=== PATIENT | female | born 1985 | race Caucasian/White ===

== ENCOUNTER 2017-08-02 17:12 | Emergency (ER) | payer OTHER, MEDICAID, SELFPAY ==
[2017-08-02 17:19] VITALS: BP 127/81; PULSE 76; RESP 20; TEMP 36.8; O2SAT 98; BMI 20.5
--- NOTE | 2017-08-02 17:27 | HMH.EDUTC ---
[facility] [place] Disposition Clinical Impression: Migraine Qualifiers: Migraine type: unspecified Status migrainosus presence: without status migrainosus Intractability: intractable Qualified Code(s): G43.919 - Migraine, unspecified, intractable, without status migrainosus Vomiting Qualifiers: Vomiting type: unspecified Vomiting Intractability: unspecified Disposition: Home, Self-Care Condition on Discharge: Good Instructions: Migraine -- Adult, DI for Chronic Pain -- Adult, DI for Vomiting -- Adult Additional Instructions: Take medication for nausea as directed Follow up with family doctor Return if no improvement or Follow up with family doctor in 24-48 hours if no improvement or worsening of symptoms Straight to ER if any life threatening symptoms Rest and drink plenty of fluids, no fried or greasy foods, [place] diet such as dry toast, crackers etc food that is easy on stomach Prescriptions: Ondansetron [Zofran 4mg ODT] 4 mg PO Q8H PRN #20 tab.rapdis PRN Reason: Nausea Time of Disposition: 18:10 Medical Decision Making - Medical Records Medical records reviewed: Yes: I reviewed the patient's medical records. - Sagar Inquiry Pt receiving controlled substance: No Sagar was queried for this patient: No Vital Signs: 08/02/17 17:19 Temperature 98.2 F Temperature Source Oral Pulse Rate [Right Brachial] 76 Respiratory Rate 20 Blood Pressure [Right Arm] 127/81 Blood Pressure Mean [Right Arm] 96 Blood Pressure Source [Right Arm] Automatic Cuff Blood Pressure Position [Right Arm] Sitting 02 Sat by Pulse Oximetry 98 Oxygen Delivery Method Room Air Orders (Tests/Meds): ED MEDICATIONS Discontinued Medications Generic Name Dose Route Start Last Admin Trade Name Freq PRN Reason Stop Dose Admin Ketorolac Tromethamine 60 mg 08/02/17 17:44 08/02/17 17:46 Toradol 60mg/2ml Vial IM 08/02/17 17:45 60 mg ONCE ONE Administration Promethazine HCl 25 mg 08/02/17 17:45 08/02/17 17:46 Phenergan 25mg/Ml 1ml Vial IM 08/02/17 17:46 25 mg ONCE ONE Administration - Reevaluation(s) Time: 17:58 Reevaluation #1: After medication patient no longer vomiting, appears to be feeling better laying on exam table drinking sprite. Will monitor to assure that patient is able to keep down sprite prior to discharge Time: 18:10 Reevaluation #3: Patient state that she feels much better after medication no vomiting since medication given [facility] [place] HPI - General Stated complaint: vomiting,BOUCHER Time Seen by Provider: 08/02/17 17:25 Mode of Arrival: Family Vehicle Source of Information: Patient, Spouse Limitations: No Limitations Description of Symptoms (Recalled from Triage Doc. by RN): C/O HEADACHE AND VOMITING HEENT Symptoms (Recalled from RN notes): Yes (HEADACHE) Resp Symptoms (Recalled from RN notes): No Skin Symptoms (Recalled from RN notes): No MS Symptoms (Recalled from RN notes): No Functional Status (Recalled from RN notes): N/A - History of Present Illness Provider Complaint: Patient states that she woke up this morning with a headache and nausea and then began vomiting State that she has a history of migraines and sometimes has nausea with them State that she has not taken anything and both the headache and vomiting has continued to get worse throughout the day. State that she has not been able to keep anything down today - Related Data Home Medications Medication Instructions Recorded Confirmed Cetirizine HCl [Cetirizine HCl] 10 mg PO DAILY 08/02/17 08/02/17 Fluticasone/Vilanterol [Breo 1 puff PO DAILY 08/02/17 08/02/17 Ellipta 200-25 Mcg INH] Montelukast Sodium [Singulair 10mg 10 mg PO PM 08/02/17 08/02/17 tablet] Previous Rx's Medication Instructions Recorded Ondansetron [Zofran 4mg ODT] 4 mg PO Q8H PRN #20 tab.rapdis 08/02/17 Allergies Allergy/AdvReac Type Severity Reaction Status Date / Time propoxyphene Allergy Unknown Verified 08/02/17 17:24 [From LUNA
[2017-08-02 18:23] VITALS: BP 124/78; PULSE 70; RESP 20; TEMP 36.6; O2SAT 98
== END 2017-08-02 18:24 | disposition home or self-care (01) ==
PROVIDERS: Emergency Provider Nurse Practitioner; Family Provider Emergency Medicine
DX: G43.919 Migraine, unspecified, intractable, without status migrainosus (principal)
CPT/HCPCS: 96372; 99201

== ENCOUNTER → 2020-02-07 19:28 | Outpatient (CLI) | payer OTHER, SELFPAY ==
[2020-02-07 20:17] LABS: Alanine Aminotransferase 98 U/L (12-78); Albumin Level 4.4 g/dl (3.5-5.0); Albumin/Globulin Ratio 1.1 (1.1-1.8); Alkaline Phosphatase 66 U/L (38-126); Aspartate Amino Transferase 59 U/L (14-36); Bilirubin,Total 0.6 mg/dl (0.2-1.3); Blood Urea Nitrogen 9 mg/dl (7-17); Calcium 9.5 mg/dl (8.4-10.2); Carbon Dioxide 28 mmol/L (22.0-30.0); Chloride 105 mmol/L (98-107); Chol/HDL Ratio 2.9 (1-3.5); Cholesterol 123 mg/dl (140-200); Estimated Glomerular Filt Rate 114 ml/min (>60); GFR (African American) 138 ML/MIN (>60); Globulin 4.1 g/dL (1.3-3.2); Glucose 93 mg/dl (74-100); HDL Cholesterol 42 mg/dl (40-60); Sodium 142 mmol/L (136-145); Total Protein,Serum 8.5 g/dl (6.3-8.2); Triglycerides 82 mg/dl (30-150); VLDL Cholesterol 16 mg/dL (0-40)
[2020-02-07 20:22] LABS: Basophils % 0.6 % (0.1-2.0); Eosinophils # 0.3 K/mm3 (0.0-0.4); Eosinophils % 6.8 % (0.1-12.0); Hematocrit 40.1 % (37.0-47.0); Hemoglobin 13.1 g/dL (12.2-16.2); Lymphocytes # 1.4 K/mm3 (0.7-4.5); Lymphocytes % 27.5 % (10-50); Mean Corpuscular HGB Conc 32.6 g/dL (31.8-35.4); Mean Corpuscular Hemoglobin 30.4 pg (27.0-31.2); Mean Corpuscular Volume 93.4 fl (81-99); Mean Platelet Volume 9.3 fl (7.4-10.4); Monocytes # 0.3 K/mm3 (0.1-1.0); Monocytes % 6.8 % (1.7-9.3); Neutrophils # 2.9 K/mm3 (1.8-7.8); Neutrophils % 58.2 % (37.0-80.0); Platelet Count 202 K/mm3 (142-424); Red Blood Count 4.29 M/mm3 (4.20-5.40); Red Cell Distribution Width 13.3 % (11.5-17.5); White Blood Count 4.9 K/mm3 (4.8-10.8)
[2020-02-07 20:27] LABS: Direct LDL Cholesterol 67.38 mg/dL (100-129)
[2020-02-07 20:33] LABS: 25-OH Vitamin D, Total 65.5 ng/mL (30-100)
[2020-02-07 20:34] LABS: T4 (Thyroxine) 7.9 ug/dl (5.53-11.0)
[2020-02-09 15:09] LABS: Hep A Ab, IgM Negative (Negative); Hepatitis B Core Antibody IgM Negative (Negative); Hepatitis B Surface Antigen Negative (Negative)
[2020-02-10 09:34] LABS: Hepatitis C Antibody >11.0 s/co ratio (0.0-0.9)
[2020-02-14 16:52] LABS: Hepatitis C Genotype 2b (.)
== END ==
LOC: LAB.DROPOF 19:28
PROVIDERS: Visit Provider Physician Assistant
DX: K52.9 Noninfective gastroenteritis and colitis, unspecified (principal); R11.10 Vomiting, unspecified; R53.83 Other fatigue; R74.8 Abnormal levels of other serum enzymes; R76.8 Other specified abnormal immunological findings in serum
CPT/HCPCS: 80053; 80061; 80074; 82306; 84436; 84443; 85025; 87522

== ENCOUNTER 2020-03-17 15:28 | Emergency (ER) | payer OTHER, SELFPAY ==
[2020-03-17 15:40] VITALS: BP 123/75; PULSE 71; RESP 19; TEMP 36.8; O2SAT 98; BMI 23.8
--- NOTE | 2020-03-17 15:57 | HMH.EDUTC ---
[facility] [place] Disposition Clinical Impression: Migraine Qualifiers: Migraine type: unspecified Status migrainosus presence: without status migrainosus Intractability: not intractable Qualified Code(s): G43.909 - Migraine, unspecified, not intractable, without status migrainosus Disposition: Home, Self-Care Condition on Discharge: Good Instructions: Migraine -- Adult, DI for Migraine Additional Instructions: Follow up with your primary care provider. GO TO THE ER FOR ANY WORSENING SYMPTOMS OR CONCERNS Referrals: Briseida Pgeuero PA [Primary Care Provider] - Forms: Work/School Release Time of Disposition: 16:51 Medical Decision Making - Medical Records Medical records reviewed: No: I reviewed the patient's medical records. - Sagar Inquiry Pt receiving controlled substance: No Vital Signs: 03/17/20 15:40 03/17/20 16:50 Temperature 98.2 F 98.2 F Temperature Source Oral Pulse Rate 71 Pulse Rate [Right Brachial] 71 Respiratory Rate 19 19 Blood Pressure 123/75 Blood Pressure [Right Arm] 123/75 Blood Pressure Mean [Right Arm] 91 Blood Pressure Source [Right Arm] Automatic Cuff Blood Pressure Position [Right Arm] Sitting 02 Sat by Pulse Oximetry 98 Oxygen Delivery Method Room Air Orders (Tests/Meds): ED MEDICATIONS Discontinued Medications Generic Name Dose Route Start Last Admin Trade Name Simonq PRN Reason Stop Dose Admin Ketorolac Tromethamine 60 mg 03/17/20 15:59 03/17/20 16:10 Ketorolac 60mg/2ml Vial IM 03/17/20 16:00 60 mg ONCE ONE Administration Methylprednisolone Sodium Succinate 125 mg 03/17/20 15:59 03/17/20 16:10 Methylprednisolone Sod Succ 125mg Vial IM 03/17/20 16:00 125 mg ONCE ONE Administration Metoclopramide HCl 10 mg 03/17/20 16:00 03/17/20 16:10 Metoclopramide Hcl 10mg/2ml Vial IM 03/17/20 16:01 10 mg ONCE ONE Administration [facility] [place] HPI - General Stated complaint: BOUCHER Time Seen by Provider: 03/17/20 15:58 Mode of Arrival: Ambulatory Source of Information: Patient Limitations: No Limitations Description of Symptoms (Recalled from Triage Doc. by RN): PATIENT C/O MIGRAINE SINCE 1000 THIS MORNING HEENT Symptoms (Recalled from RN notes): Yes Resp Symptoms (Recalled from RN notes): No Skin Symptoms (Recalled from RN notes): No MS Symptoms (Recalled from RN notes): No Functional Status (Recalled from RN notes): WNL - History of Present Illness Provider Complaint: She c/o migraine head ache since earlier this morning. She has a history of migraine. Usually she can take relpax and feel better, but today that hasn't worked. - Related Data Home Medications Medication Instructions Recorded Confirmed Methadone HCl 10 mg PO DAILY 06/05/19 03/17/20 Allergies Allergy/AdvReac Type Severity Reaction Status Date / Time propoxyphene Allergy Unknown Verified 02/07/20 14:58 [From DARVOCET-N 100] - Worker's Comp Is this a Worker's Comp case?: No [facility] History - Hepatitis A Screen Drug use history?: No High risk sexual behaviors?: No History of sexually transmitted infection?: No Currently employed?: No Childcare worker?: No Do you have indoor plumbing?: Yes Do you have electricity?: Yes Attestation statement:: This patient has been screened for Hepatitis A risk factors. I have reviewed the patient's past medical history: Yes 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: Reports:: Asthma Denies:: Cancer, Diabetes Mellitus Type 1, Diabetes Mellitus Type 2, MRSA Other 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: Reports: Other Other Surgeries: Yes: Cholecystectomy, Tubal Ligation Amputation: No Fractures: Yes Comment: Right wrist, wisdom teeth - Social History Smoking Status: Never smoker Tobacco Type: cigarettes Alcohol Intake: never Substance Use Type: heroin Occupational Status: other Family Hx:: Hypertension ROS Obtained: Yes All systems reviewed & no additional complaints - Constitutional Constitutional: Denies chills, Denies fever(s), Denies poor appeti
[2020-03-17 16:50] VITALS: BP 123/75; PULSE 71; RESP 19; TEMP 36.8; O2SAT 98
== END 2020-03-17 16:55 | disposition home or self-care (01) ==
PROVIDERS: Emergency Provider Nurse Practitioner Family; PCP Physician Assistant
DX: G43.909 Migraine, unspecified, not intractable, without status migrainosus (principal); J45.909 Unspecified asthma, uncomplicated; Z88.6 Allergy status to analgesic agent
CPT/HCPCS: 96372; 99201

== ENCOUNTER → 2020-03-20 13:31 | Outpatient (CLI) | payer OTHER, SELFPAY | PROVIDERS: PCP Physician Assistant; Visit Provider Physician Assistant | DX: Z03.818 Encounter for observation for suspected exposure to other biological agents ruled out (principal) | CPT/HCPCS: U0003 ==

== ENCOUNTER 2021-05-22 16:43 | Emergency (ER) | payer OTHER, SELFPAY ==
[2021-05-22 18:14] VITALS: BP 124/86; PULSE 81; RESP 18; TEMP 36.8; O2SAT 99; BMI 23.1
--- NOTE | 2021-05-22 18:19 | HMH.EDUTC ---
[facility] [place] Disposition Clinical Impression: Otitis media Qualifiers: Otitis media type: unspecified Laterality: left Qualified Code(s): H66.92 - Otitis media, unspecified, left ear Disposition: Home, Self-Care Condition on Discharge: Good Instructions: Sore Throat, DI for Fever (Symptom) -- Adult Additional Instructions: *Monitor Temp, Over the counter Motrin or Tylenol as directed/as needed Tylenol every 4 hours and Motrin every 6 hours (as long as your family doctor has told you that you can take it) for fever or pain. and straight to ER if unable to lower temp less than 101.0 after medication given *Warm salt water gargles may help to soothe the throat *Throat Lozenges *Warm fluids like tea with honey may help to soothe the throat *Sleep elevated *Humidifier/Vaporizer Take medication as prescribed Your throat swab was sent for culture. Those results are typically sent to your primary care. Be sure to follow up in 2-3 days with your family doctor/primary care physician if no improvement so they can review those result and treat if necessary. If you don?t have a primary care doctor, I recommend you get one but in the mean time, you will have to return to a walk in clinic Follow up IMMEDIATELY for new or worsening symptoms or no Noticeable improvement over the next 48-72 hours. 911 for difficulty breathing or swallowing Prescriptions: Amoxicillin [Amoxicillin 875MG Tab] 875 mg PO Q12H #20 tab Transmission Status: Pending to [id number] Fluticasone Propionate [Flonase 50mcg nasal spray 16gm] 1 spr NS DAILY #1 each Transmission Status: Pending to [id number] Referrals: Briseida Peguero PA [Primary Care Provider] - As needed Time of Disposition: 18:26 Medical Decision Making - Sagar Inquiry Pt receiving controlled substance: No Sagar was queried for this patient: No Vital Signs: 05/22/21 18:14 Temperature 98.2 F Temperature Source Oral Pulse Rate [Right Radial] 81 Respiratory Rate 18 Blood Pressure [Right Arm] 124/86 Blood Pressure Mean [Right Arm] 98 Blood Pressure Source [Right Arm] Automatic Cuff Blood Pressure Position [Right Arm] Sitting 02 Sat by Pulse Oximetry 99 Oxygen Delivery Method Room Air - Lab Data Lab results reviewed: Yes: I reviewed the patient's lab results. [facility] [place] HPI - General Stated complaint: poss strep, sore throat, bodyaches, headache Time Seen by Provider: 05/22/21 18:19 Mode of Arrival: Ambulatory Source of Information: Patient Limitations: No Limitations Description of Symptoms (Recalled from Triage Doc. by RN): C/O sore throat, bodyaches, stomach ache since yesterday. Exposed to strep throat HEENT Symptoms (Recalled from RN notes): Yes (sore throat) Resp Symptoms (Recalled from RN notes): No Skin Symptoms (Recalled from RN notes): No MS Symptoms (Recalled from RN notes): Yes (bodyaches) Functional Status (Recalled from RN notes): n/a - History of Present Illness Provider Complaint: Patient state that her daughter has strep throat State that she has been having sore throat and pain in her left ear along with body aches, headache and upset stomach like she gets when she has it State that this evening she was feeling worse so she came in - Related Data Home Medications Medication Instructions Recorded Confirmed Methadone HCl 10 mg PO DAILY 06/05/19 05/23/20 Previous Rx's Medication Instructions Recorded promethazine 12.5 mg tablet 12.5 mg PO TID PRN #10 tab 05/23/20 Amoxicillin [Amoxicillin 875MG 875 mg PO Q12H #20 tab 05/22/21 Tab] Fluticasone Propionate [Flonase 1 spr NS DAILY #1 each 05/22/21 50mcg nasal spray 16gm] Allergies Allergy/AdvReac Type Severity Reaction Status Date / Time propoxyphene Allergy Unknown Verified 05/23/20 08:16 [From JONNIE-N 100] - Worker's Comp Is this a Worker's Comp case?: No [facility] History - Hepatitis A Screen Drug use history?: No High risk sexual behaviors?: No History
[2021-05-22 18:21] LABS: UTC Strep Screen (Rapid) Negative (Negative)
[2021-05-22 18:40] VITALS: BP 124/86; PULSE 81; RESP 18; TEMP 36.8; O2SAT 99
== END 2021-05-22 18:40 | disposition home or self-care (01) ==
PROVIDERS: Emergency Provider Nurse Practitioner; PCP Physician Assistant
DX: H66.92 Otitis media, unspecified, left ear (principal)
CPT/HCPCS: 87880; 99202; G0463

== ENCOUNTER 2021-08-16 12:06 | Emergency (ER) | payer OTHER, SELFPAY ==
[2021-08-16 12:10] VITALS: BP 124/81; PULSE 127; RESP 17; TEMP 37.2; O2SAT 99; BMI 26.3
[2021-08-16 12:18] LABS: UTC Influenza A Antigen Positive (Negative)
[2021-08-16 12:19] LABS: UTC Influenza B Antigen Negative (Negative)
--- NOTE | 2021-08-16 12:30 | HMH.EDUTC ---
[facility] [place] [facility] [place] Clinical Impression: Influenza Disposition: Home, Self-Care Condition on Discharge: Good Instructions: How to Avoid a Cold or Flu, Influenza Additional Instructions: ? Start Tamiflu today if you are going to take it. Discussed risk and possible benefits. ? Lots of rest ? Increase Fluids water, Gatorade, powerade, pedialyte,if infant/toddler/child ? Alternate Tylenol and / or ibuprofen as discussed for fever, aches, chills Follow up IMMEDIATELY with your family doctor for new or worsening Symptoms OR no noticeable improvement over the next 48-72 hours, 911 for difficulty or breathing ? You or your child area contagious until no fever, aches, chills for 24 hours with medication for symptoms ? Help Prevent the spread of influenza: ? Wash your hands often. Use soap and water. Wash your hands after you use the bathroom, change a child's diapers, or sneeze. Wash your hands before you prepare or eat food. Use gel hand cleanser that has 60% alcohol, when soap and water are not available. Do not touch your eyes, nose, or mouth unless you have washed your hands first. ? Cover your mouth when you sneeze or cough. Cough into a tissue or the bend of your arm. If you use a tissue, throw it away immediately and wash your hands. ? Clean shared items with a germ-killing quill cleaner. Clean table surfaces, doorknobs, and light switches. Do not share towels, silverware, and dishes with people who are sick. Wash bed sheets, towels, silverware, and dishes with soap and water. ? Wear a mask over your mouth and nose if you are sick. The face mask may help protect others from becoming infected with the flu. Wear the mask when in common areas of your home or if you seek care with a healthcare provider. ? Stay away from others if you are sick. Stay at home until 24 hours after your fever and symptoms are gone. Prescriptions: Brompheniramine/Pseudoephed/Dm [Bromfed Dm Cough Syrup] 5 - 10 ml PO Q4-6H PRN #200 ml PRN Reason: Cough Transmission Status: Pending to [facility] Oseltamivir Phosphate [Tamiflu 75mg Capsule] 75 mg PO BID #10 cap Transmission Status: Pending to [facility] Referrals: Briseida Peguero PA [Primary Care Provider] - As needed Forms: Work/School Release Time of Disposition: 12:36 Medical Decision Making - Sagar Inquiry Pt receiving controlled substance: No Sagar was queried for this patient: No Vital Signs: 08/16/21 12:10 Temperature 98.9 F Temperature Source Oral Pulse Rate [Right Brachial] 127 H Respiratory Rate 17 Blood Pressure [Right Arm] 124/81 Blood Pressure Mean [Right Arm] 95 Blood Pressure Source [Right Arm] Automatic Cuff Blood Pressure Position [Right Arm] Sitting 02 Sat by Pulse Oximetry 99 Oxygen Delivery Method Room Air - Lab Data Lab results reviewed: Yes: I reviewed the patient's lab results. Lab Results 08/16/21 12:10: Influenza Type A Ag Positive A, Influenza Type B Ag Negative [facility] [place]PI - General Stated complaint: cough, fever, bodyaches, BOUCHER Time Seen by Provider: 08/16/21 12:30 Mode of Arrival: Ambulatory Source of Information: Patient Limitations: No Limitations Description of Symptoms (Recalled from Triage Doc. by RN): PATIENT C/O FEVER, COUGH, BODY ACHES, AND HEADACHE SINCE LAST NIGHT. RECENTLY EXPOSED TO FLU HEENT Symptoms (Recalled from RN notes): Yes Resp Symptoms (Recalled from RN notes): Yes Skin Symptoms (Recalled from RN notes): No MS Symptoms (Recalled from RN notes): No Functional Status (Recalled from RN notes): WNL - History of Present Illness Provider Complaint: Patient states that her daughters currently have the flu States that last night she started having bodyaches, chills, cough and fever and she is pretty sure she may have flu now too so she came in to get checked out - Related Data Previous Rx's Medication Instructions Recorded Brompheniramine/Pseudoephed/Dm 5 - 10 ml PO Q4-6H PRN #200 ml 08/16/21 [Bromfe
[2021-08-16 12:36] VITALS: BP 124/81; PULSE 127; RESP 17; TEMP 37.2; O2SAT 99
== END 2021-08-16 12:41 | disposition home or self-care (01) ==
PROVIDERS: Emergency Provider Nurse Practitioner; PCP Physician Assistant
DX: J10.1 Influenza due to other identified influenza virus with other respiratory manifestations (principal)
CPT/HCPCS: 87804; 99212; G0463

== ENCOUNTER → 2022-01-22 13:50 | Outpatient (CLI) | payer BC, OTHER, SELFPAY ==
--- NOTE | 2022-01-22 13:50 | US_ITS ---
FINAL REPORT CLINICAL HISTORY: pelvic pain and heavy bleeding FINDINGS: Transvaginal sonographic images of the pelvis were obtained. The uterus measures 9.2 x 4.0 x 4.9 cm. The endometrium measures 10 mm, which is within normal limits. No uterine mass is identified. The right ovary measures 3.1 x 2.7 x 2.0 cm and left ovary measures 2.9 by 2.8 x 1.7 cm. Normal blood flow seen to the ovaries. There are multiple follicles in both ovaries consistent with polycystic ovarian syndrome. There is a small amount of free fluid in the pelvis which may be physiologic or reactive. IMPRESSION: Multiple follicles in both ovaries consistent with polycystic ovarian syndrome. Reviewed, Interpreted and Dictated by Az Mcpherson III, MD Transcribed by Gemma Conner Authenticated and . [facility]
== END ==
PROVIDERS: PCP Physician Assistant; Visit Provider Obstetrics & Gynecology
DX: N93.9 Abnormal uterine and vaginal bleeding, unspecified (principal); R10.2 Pelvic and perineal pain
CPT/HCPCS: 76830

== ENCOUNTER → 2022-02-05 08:59 | Outpatient (CLI) | payer BC, OTHER, SELFPAY ==
[2022-02-05 09:35] LABS: Basophils # 0.1 K/mm3 (0-0.2); Eosinophils # 0.4 K/mm3 (0.0-0.4); Eosinophils % 6.1 % (0.1-12.0); Hemoglobin 12.6 g/dL (12.2-16.2); Lymphocytes # 1.5 K/mm3 (0.7-4.5); Lymphocytes % 21.9 % (10-50); Mean Corpuscular HGB Conc 33.1 g/dL (31.8-35.4); Mean Corpuscular Hemoglobin 30.8 pg (27.0-31.2); Mean Corpuscular Volume 93.2 fl (81-99); Mean Platelet Volume 8.5 fl (7.4-10.4); Monocytes # 0.4 K/mm3 (0.1-1.0); Monocytes % 5.4 % (1.7-9.3); Neutrophils # 4.3 K/mm3 (1.8-7.8); Neutrophils % 65.5 % (37.0-80.0); Platelet Count 232 K/mm3 (142-424); Red Blood Count 4.07 M/mm3 (4.20-5.40); Red Cell Distribution Width 13.6 % (11.5-17.5); White Blood Count 6.6 K/mm3 (4.8-10.8)
[2022-02-05 09:49] LABS: Chloride 103 mmol/L (98-107); Potassium 4.2 mmoL/L (3.5-5.1); Sodium 141 mmol/L (136-145)
[2022-02-05 09:51] LABS: Blood Urea Nitrogen 12 mg/dl (7-17); Estimated Glomerular Filt Rate 95 ml/min (>60); GFR (African American) 115 ML/MIN (>60)
[2022-02-05 09:52] LABS: Alanine Aminotransferase 41 U/L (12-78); Albumin Level 4.5 g/dl (3.5-5.0); Albumin/Globulin Ratio 1.3 (1.1-1.8); Alkaline Phosphatase 51 U/L (38-126); Anion Gap 15.2 mEq/L (5-15); Aspartate Amino Transferase 38 U/L (14-36); Carbon Dioxide 27 mmol/L (22.0-30.0); Globulin 3.6 g/dL (1.3-3.2); Glucose 78 mg/dl (74-100); Total Protein,Serum 8.1 g/dl (6.3-8.2)
[2022-02-05 09:53] LABS: Bilirubin,Total 0.1 mg/dl (0.2-1.3)
[2022-02-05 10:12] LABS: HCG,Quantitative < 2 mIU/ml (0-5.42)
== END ==
PROVIDERS: PCP Physician Assistant; Visit Provider Obstetrics & Gynecology
DX: Z01.812 Encounter for preprocedural laboratory examination (principal); Z20.822 Contact with and (suspected) exposure to COVID-19; N92.0 Excessive and frequent menstruation with regular cycle
CPT/HCPCS: 36415; 80053; 84702; 85025; C9803; U0003; U0005

== ENCOUNTER 2022-02-07 07:52 | Day surgery (SDC) | payer BC, OTHER, SELFPAY ==
[2022-02-06 11:59] VITALS: BMI 26.2
[2022-02-07] VITALS (9 sets, daily range): BP systolic 97–133; BP diastolic 65–78; PULSE 61–77; RESP 16–18; TEMP 36.6–43; O2SAT 97–100
--- NOTE | 2022-02-07 08:45 | EXP.ANES.CKL ---
PFSH PFS 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 Allergies Asthma Endometriosis History of COVID-19 Migraine PCOS (polycystic ovarian syndrome) Pierced lip infection Pneumonia Stomach ulcer Urinary tract infection Surgical History H/O right wrist surgery H/O tubal ligation History of cholecystectomy History of tubal ligation Family History Other Family history of cancer Family history of diabetes mellitus type II Family history of hypertension Family history of irritable bowel syndrome Social History Smoking Status: Never smoker alcohol intake: current substance use type: former substance user and heroin current occupational status: employed Travel in the last 8 weeks: None [facility] Anesthesia Checklist Patient Identification Patient Identification: Arm Band and Verbal (Name & ) Structural Data Admitted From: Home Planned Operative Procedure/s: Hysteroscopy/Myosure Consent for Planned Operative Procedure(s) Verified: Yes Verified Documents: Surgical Consent NPO Status Verified Time NPO: 00:00 Additional verifications Anesthesia Reactions: No Hx Blood Transfusions: No Blood Transfusion Reaction: No Cephalosporin Allergy: No Airway Assessment C-Spine Mobility Assessed: Yes TMJ Mobility Assessed: Yes Dentition: Good Dentition Neurological Assessment Level of Consciousness: Awake, Alert and Appropriate Anesthesia Plan Anesthesia Risk discussed: Yes ASA Class: I Anesthesia Type: General
--- NOTE | 2022-02-07 11:24 | EXP.OP.NOTE ---
Date of procedure: 02/07/22 Pre-op Diagnosis:: 1. Heavy menstrual bleeding 2. Dysfunctional uterine bleeding 3. Severe dysmenorrhea Post-op Diagnosis:: Same Procedure performed:: 1. D&C Hysteroscopy 2. Novasure Endometrial Ablation Surgeon:: Zeinab Eisenberg MD PHOTOGRAPHY AND PRINTS CURATOR:: Erich Cruz Anesthesia: MAC Estimated blood loss (mL): 5 Operative findings:: Grossly normal uterine cavity Operative note:: The patient was taken to the OR where anesthesia was administered without difficulty. She was prepped/draped in the normal sterile fashion in lithotomy position. The cervix was dilated until the hysteroscope could be accommodated. The hysteroscope was introduced through the cervix into the uterus and the cavity surveyed. No submucosal fibroids or endometrial polyps were visualized within the cavity. The hysteroscope was removed and sharp curettage was performed for pathology evaluation. The Novasure device was introduced into the uterus. The cavity length was measured at 5cm and width at 3.4cm, and the cavity assessment was successful. The Novasure was deployed and the endometrial ablation was completed in 81 seconds, and without complication. All instruments were removed from her vagina, she was awakened from anesthesia and taken to PACU in stable condition. Condition: stable Disposition: PACU Specimens:: Endometrial curettings Complications:: None
== END 2022-02-07 11:30 | disposition home or self-care (01) ==
PROVIDERS: PCP Physician Assistant; Visit Provider Obstetrics & Gynecology
PROC: (CPT 58563; principal; 2022-02-07 10:00)
DX: N93.8 Other specified abnormal uterine and vaginal bleeding (principal); N94.6 Dysmenorrhea, unspecified; Z79.899 Other long term (current) drug therapy
CPT/HCPCS: 58563; 88305; 96374; J2405

== ENCOUNTER 2022-02-18 11:18 | Emergency (ER) | payer BC, OTHER, SELFPAY ==
[2022-02-18 11:40] VITALS: BP 125/74; PULSE 81; RESP 19; TEMP 37.1; O2SAT 98; BMI 23.7
[2022-02-18 11:49] LABS: UTC Strep Screen (Rapid) Negative (Negative)
--- NOTE | 2022-02-18 11:55 | EXP.UTC ---
Discharge Plan Disposition Patient Disposition: Home, Self-Care Condition: Good Prescriptions Prescriptions: No Action cetirizine [Zyrtec] 10 mg Tablet 10 mg PO DAILY Referrals Follow up/Referrals: Briseida Peguero PA [Primary Care Provider] - See instructions Activity Restrictions/Add. Instructions Additional Instructions/Restrictions: *Monitor Temp, Over the counter Motrin or Tylenol as directed/as needed Tylenol every 4 hours and Motrin every 6 hours (as long as your family doctor has told you that you can take it) for fever or pain. and straight to ER if unable to lower temp less than 101.0 after medication given *Warm salt water gargles may help to soothe the throat *Throat Lozenges? *Warm fluids like tea with honey may help to soothe the throat? *Sleep elevated *Humidifier/Vaporizer Your throat swab was sent for culture. Those results are typically sent to your primary care. Be sure to follow up in 2-3 days with your family doctor/primary care physician if no improvement so they can review those result and treat if necessary. If you don?t have a primary care doctor, I recommend you get one but in the mean time, you will have to return to a walk in clinic Follow up IMMEDIATELY for new or worsening symptoms or no Noticeable improvement over the next 48-72 hours. 911 for difficulty breathing or swallowing You were tested for today for COVID19 your test result should be back in the next 24-48 hours, you may check your results on the [facility] Make sure to take your Vitamins Vit. C Vit D and Zinc if you can take them Clinical Impressions Clinical Impression: URI (upper respiratory infection) Instructions Patient Instructions: Sore Throat, DI for Sinusitis Discharge ED Provider: Nafisa Silva [facility] [place] HPI General Stated complaint: Sore throat, ear pain, BA Mode of Arrival: Ambulatory Source of Information: Patient Limitations: No Limitations Time Seen by Provider: 02/18/22 11:55 Description of Symptoms (Recalled from Triage Doc. by RN): pt comes in with c/o cough, sore throat, headache, ear pain. symptoms ongoing for 3 days HEENT Symptoms (Recalled from RN notes): Yes Resp Symptoms (Recalled from RN notes): Yes Skin Symptoms (Recalled from RN notes): No MS Symptoms (Recalled from RN notes): No Functional Status (Recalled from RN notes): n/a History of Present Illness Provider Complaint: Patient state that she has been having body aches, headache, pain in both ears, sinus congestion and pressure States that today she was feeling worse so she came in to get checked out Related Data Home Medications Medication Instructions Recorded Confirmed cetirizine 10 mg tablet (Zyrtec) 10 mg PO DAILY Allergy symptoms 02/06/22 02/18/22 Allergies Allergy/AdvReac Type Severity Reaction Status Date / Time propoxyphene Allergy Unknown Verified 02/18/22 11:45 [From DARVOCET-N 100] aspirin Allergy Verified 02/18/22 11:45 Worker's Comp Is this a Worker's Comp case?: No PFSH PFSH 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 (Updated 02/18/22 @ 12:06 by Nafisa Silva APRN) Allergies Asthma Endometriosis History of COVID-19 Migraine PCOS (polycystic ovarian syndrome) Pierced lip infection Pneumonia Stomach ulcer Urinary tract infection Surgical History H/O right wrist surgery H/O tubal ligation History of cholecystectomy History of tubal ligation Family History Other Family history of cancer Family history of diabetes mellitus type II Family history of hypertension Family history of irritable bowel syndrome Social History Smoking Status: Never smoker alcohol intake: current substance use type: former substance user and heroin current occupational status: employed Travel in the last 8 weeks: None ROS Obtained: Yes All sys
[2022-02-18 12:07] VITALS: BP 125/74; PULSE 81; RESP 19; TEMP 37.1
== END 2022-02-18 12:19 | disposition home or self-care (01) ==
PROVIDERS: Emergency Provider Nurse Practitioner; PCP Physician Assistant
DX: J06.9 Acute upper respiratory infection, unspecified (principal); J02.9 Acute pharyngitis, unspecified; H92.03 Otalgia, bilateral; J32.9 Chronic sinusitis, unspecified; R05.9 Cough, unspecified; M79.10 Myalgia, unspecified site; Z86.16 Personal history of COVID-19; G43.909 Migraine, unspecified, not intractable, without status migrainosus; J45.909 Unspecified asthma, uncomplicated; E28.2 Polycystic ovarian syndrome; Z79.52 Long term (current) use of systemic steroids; Z79.82 Long term (current) use of aspirin; Z79.899 Other long term (current) drug therapy; Z82.49 Family history of ischemic heart disease and other diseases of the circulatory system; Z83.3 Family history of diabetes mellitus; Z80.9 Family history of malignant neoplasm, unspecified; Z87.39 Personal history of other diseases of the musculoskeletal system and connective tissue
CPT/HCPCS: 87880; 99213; G0463

== ENCOUNTER 2022-04-23 10:13 | Emergency (ER) | payer OTHER, SELFPAY ==
[2022-04-23 10:45] VITALS: BP 111/78; PULSE 67; RESP 18; TEMP 36.6; O2SAT 97; BMI 27.4
--- NOTE | 2022-04-23 10:51 | EXP.UTC ---
Discharge Plan Disposition Patient Disposition: Home, Self-Care Condition: Good Prescriptions Prescriptions: No Action cetirizine [Zyrtec] 10 mg Tablet 10 mg PO DAILY Referrals Follow up/Referrals: Briseida Peguero PA [Primary Care Provider] - See instructions Activity Restrictions/Add. Instructions Additional Instructions/Restrictions: covid/flu swab was sent to lab, call later today for results. self isolate until test results are known to be negative No sign of a bacterial infection. Likely viral. Viruses can take 7-14 days to run their course. Nasal saline and bulb syringe or nose Jessica to remove nasal drainage to help with nasal congestion. Hard to eat, drink, sleep with nasal congestion so important to keep this cleaned out. Monitor temp. Tylenol or Motrin as needed for pain or fever Encourage fluids, water, Gatorade, Powerade, Pedialyte if /toddler/child Warm salt water gargles Warm fluids Sore throat lozenges Sleep elevated Humidifier/vaporizer Follow-up immediately for new or worsening symptoms or no noticeable improvement over the next 48-72 hours. Clinical Impressions Clinical Impression: Upper respiratory infection, Exposure to the flu Stand Alone Forms Stand Alone Forms: Work/School Release Instructions Patient Instructions: DI for Viral Upper Respiratory Infection -- Adult Discharge ED Provider: Henrique ([facility] [place] General Stated complaint: Bodyaches, headache,vomitting Mode of Arrival: Ambulatory Source of Information: Patient Limitations: No Limitations Time Seen by Provider: 04/23/22 10:51 Description of Symptoms (Recalled from Triage Doc. by RN): pt comes inw ith c/o headache, stomach ache, fatigue. vomitting. symptoms began yesterday HEENT Symptoms (Recalled from RN notes): Yes Resp Symptoms (Recalled from RN notes): Yes Skin Symptoms (Recalled from RN notes): No MS Symptoms (Recalled from RN notes): No Functional Status (Recalled from RN notes): n/a History of Present Illness Provider Complaint: 37 yr old female presents with c/o headache, stomach ache, fatigue. vomiting. symptoms began last night, daughters have flu Related Data Home Medications Medication Instructions Recorded Confirmed cetirizine 10 mg tablet (Zyrtec) 10 mg PO DAILY Allergy symptoms 02/06/22 02/28/22 Allergies Allergy/AdvReac Type Severity Reaction Status Date / Time propoxyphene Allergy Unknown Verified 04/23/22 10:48 [From MEMET-N 100] aspirin Allergy Verified 04/23/22 10:48 Worker's Comp Is this a Worker's Comp case?: No [facility] Disclaimer: The information contained in this section may have been updated after the patient was seen, as this information can be updated by other users. 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
[2022-04-23 11:01] VITALS: BP 111/78; PULSE 67; RESP 18; TEMP 36.6
== END 2022-04-23 11:06 | disposition home or self-care (01) ==
PROVIDERS: Emergency Provider Nurse Practitioner Family; PCP Physician Assistant
DX: J06.9 Acute upper respiratory infection, unspecified (principal); Z20.828 Contact with and (suspected) exposure to other viral communicable diseases
CPT/HCPCS: 87275; 87276; 99212; G0463

== ENCOUNTER → 2022-11-25 14:05 | Outpatient (CLI) | payer OTHER, SELFPAY ==
[2022-11-25 15:41] LABS: Thyroid Stimulating Hormone 2.65 uIU/mL (0.465-4.68)
[2022-11-27 12:08] LABS: Estradiol 50.9 pg/mL (.); FSH 5.9 mIU/mL (.); LH 3.8 mIU/mL (.); Testosterone,Total 60 ng/dL (8-60)
== END ==
LOC: LAB 14:05
PROVIDERS: PCP Physician Assistant; Visit Provider Obstetrics & Gynecology
DX: E34.9 Endocrine disorder, unspecified (principal)
CPT/HCPCS: 36415; 82670; 83001; 83002; 84403; 84443

== ENCOUNTER → 2023-01-06 15:23 | Outpatient (CLI) | payer OTHER, SELFPAY ==
--- NOTE | 2023-01-06 15:26 | XR_ITS ---
FINAL REPORT TECHNIQUE: Chest PA & Lateral CLINICAL HISTORY: . wheezing, cough COMPARISON: None FINDINGS: 2 views of the chest were performed. The heart size is normal. The mediastinum is within normal limits. There is no acute cardiopulmonary process. There are no pleural effusions. There is no pneumothorax. There is a calcified granuloma noted in the left base. The bony thorax appears intact. IMPRESSION: No acute cardiopulmonary process. Reviewed, Interpreted and Dictated by Grabiel Haywood MD Transcribed by Amy Chisholm Authenticated and [facility]
== END ==
LOC: RAD 15:23
PROVIDERS: PCP Physician Assistant; Visit Provider Student in an Organized Health Care Education/Training Program
DX: R06.02 Shortness of breath (principal); R05.9 Cough, unspecified; R06.2 Wheezing
CPT/HCPCS: 71046

== ENCOUNTER → 2023-01-06 23:13 | Outpatient (CLI) | payer OTHER, SELFPAY | PROVIDERS: PCP Physician Assistant; Visit Provider Student in an Organized Health Care Education/Training Program | DX: R06.02 Shortness of breath (principal) ==

== ENCOUNTER → 2023-01-21 15:07 | Outpatient (CLI) | payer OTHER, MEDICAID, SELFPAY ==
[2023-01-21 17:34] LABS: 25-OH Vitamin D, Total 45.2 ng/mL (30-100)
[2023-01-21 17:37] LABS: Alanine Aminotransferase 23 U/L (12-78); Albumin Level 4.3 g/dl (3.5-5.0); Albumin/Globulin Ratio 1.2 (1.1-1.8); Alkaline Phosphatase 55 U/L (38-126); Anion Gap 13.9 mEq/L (5-15); Aspartate Amino Transferase 21 U/L (14-36); Bilirubin,Total 0.3 mg/dl (0.2-1.3); Blood Urea Nitrogen 13 mg/dl (7-17); Calcium 8.9 mg/dl (8.4-10.2); Carbon Dioxide 26 mmol/L (22.0-30.0); Chloride 106 mmol/L (98-107); Chol/HDL Ratio 3.9 (1-3.5); Cholesterol 178 mg/dl (140-200); Estimated Glomerular Filt Rate 94 ml/min (>60); GFR (African American) 114 ML/MIN (>60); Globulin 3.7 g/dL (1.3-3.2); Glucose 87 mg/dl (74-100); HDL Cholesterol 46 mg/dl (40-60); Potassium 3.9 mmoL/L (3.5-5.1); Sodium 142 mmol/L (136-145); Triglycerides 125 mg/dl (30-150); VLDL Cholesterol 25 mg/dL (0-40)
[2023-01-21 17:46] LABS: Basophils % 0.5 % (0.1-2.0); Eosinophils # 0.2 K/mm3 (0.0-0.4); Eosinophils % 2.9 % (0.1-12.0); Hematocrit 44.1 % (37.0-47.0); Hemoglobin 14.8 g/dL (12.2-16.2); Lymphocytes # 1.8 K/mm3 (0.7-4.5); Lymphocytes % 21.8 % (10-50); Mean Corpuscular HGB Conc 33.6 g/dL (31.8-35.4); Mean Corpuscular Hemoglobin 31.8 pg (27.0-31.2); Mean Corpuscular Volume 94.6 fl (81-99); Mean Platelet Volume 9.1 fl (7.4-10.4); Monocytes # 0.5 K/mm3 (0.1-1.0); Monocytes % 5.7 % (1.7-9.3); Neutrophils # 5.7 K/mm3 (1.8-7.8); Neutrophils % 69.1 % (37.0-80.0); Platelet Count 201 K/mm3 (142-424); Red Blood Count 4.66 M/mm3 (4.20-5.40); Red Cell Distribution Width 12.9 % (11.5-17.5); White Blood Count 8.3 K/mm3 (4.8-10.8)
[2023-01-21 17:48] LABS: Direct LDL Cholesterol 98.79 mg/dL (100-129)
[2023-01-21 18:08] LABS: Thyroid Stimulating Hormone 1.14 uIU/mL (0.465-4.68)
== END ==
LOC: LAB 15:08
PROVIDERS: PCP Physician Assistant; Visit Provider Student in an Organized Health Care Education/Training Program
DX: E55.9 Vitamin D deficiency, unspecified (principal); R93.89 Abnormal findings on diagnostic imaging of other specified body structures; Z13.29 Encounter for screening for other suspected endocrine disorder; Z68.29 Body mass index [BMI] 29.0-29.9, adult
CPT/HCPCS: 36415; 80053; 80061; 82306; 84443; 85025

== ENCOUNTER → 2023-03-05 09:30 | Outpatient (CLI) | payer OTHER, MEDICAID, SELFPAY | LOC: LAB.DROPOF 03-06 09:31 | PROVIDERS: PCP Nurse Practitioner Family; Visit Provider Nurse Practitioner Family | DX: R35.0 Frequency of micturition (principal) | CPT/HCPCS: 87086 ==

== ENCOUNTER → 2023-04-02 15:44 | Outpatient (CLI) | payer OTHER, MEDICAID, SELFPAY ==
[2023-04-02 15:49] LABS: MANUAL DIFFERENTIAL MANUAL DIFFERENTIAL (MANUAL DIFF)
[2023-04-02 16:08] LABS: Basophils % 0.6 % (0.1-2.0); Eosinophils # 0.5 K/mm3 (0.0-0.4); Eosinophils % 6.6 % (0.1-12.0); Hematocrit 40.3 % (37.0-47.0); Hemoglobin 14.1 g/dL (12.2-16.2); Lymphocytes # 1.5 K/mm3 (0.7-4.5); Lymphocytes % 22.2 % (10-50); Mean Corpuscular HGB Conc 35.1 g/dL (31.8-35.4); Mean Platelet Volume 8.1 fl (7.4-10.4); Monocytes # 0.3 K/mm3 (0.1-1.0); Monocytes % 4.9 % (1.7-9.3); Neutrophils # 4.5 K/mm3 (1.8-7.8); Neutrophils % 65.7 % (37.0-80.0); Platelet Count 189 K/mm3 (142-424); Red Blood Count 4.28 M/mm3 (4.20-5.40); Red Cell Distribution Width 12.7 % (11.5-17.5); White Blood Count 6.8 K/mm3 (4.8-10.8)
[2023-04-02 16:51] LABS: Eosinophils % 3 % (0-3); Lymphocytes % 25 % (10-50); Monocytes % 5 % (2-9); Neutrophils % 67 % (42-76); Platelet Estimate Normal; RBC Morphology Normal; Total Cells Counted 100
[2023-04-02 17:03] LABS: Erythrocyte Sedimentation Rate 19 mm/hr (0-20)
[2023-04-02 17:13] LABS: Alanine Aminotransferase 40 U/L (12-78); Albumin Level 4.4 g/dl (3.5-5.0); Albumin/Globulin Ratio 1.4 (1.1-1.8); Alkaline Phosphatase 52 U/L (38-126); Anion Gap 10.7 mEq/L (5-15); Aspartate Amino Transferase 29 U/L (14-36); Bilirubin,Total 0.4 mg/dl (0.2-1.3); Blood Urea Nitrogen 13 mg/dl (7-17); Calcium 8.3 mg/dl (8.4-10.2); Carbon Dioxide 27 mmol/L (22.0-30.0); Chloride 104 mmol/L (98-107); Estimated Glomerular Filt Rate 112 ml/min (>60); GFR (African American) 135 ML/MIN (>60); Globulin 3.2 g/dL (1.3-3.2); Glucose 75 mg/dl (74-100); Potassium 3.7 mmoL/L (3.5-5.1); Sodium 138 mmol/L (136-145); Total Protein,Serum 7.6 g/dl (6.3-8.2)
[2023-04-02 17:20] LABS: C-Reactive Protein 0.9 mg/L (0-4)
[2023-04-02 18:24] LABS: Vitamin B12 383 pg/mL (239-931)
[2023-04-02 18:28] LABS: Folate 9.84 ng/mL
[2023-04-10 20:51] LABS: 1,25 Dihydroxy Vitamin D 51 pg/mL (.); 1,25-Dihydroxy, Vitamin D-2 <10 pg/mL (.); 1,25-Dihydroxy, Vitamin D-3 51 pg/mL (.)
== END ==
LOC: LAB 15:45
PROVIDERS: PCP Physician Assistant; Visit Provider Specialist
DX: G43.909 Migraine, unspecified, not intractable, without status migrainosus (principal); B19.20 Unspecified viral hepatitis C without hepatic coma; G43.709 Chronic migraine without aura, not intractable, without status migrainosus; Z86.79 Personal history of other diseases of the circulatory system
CPT/HCPCS: 80053; 82607; 82652; 82746; 85007; 85014; 85018; 85048; 85049; 85651; 86140

== ENCOUNTER 2023-04-17 08:37 | Emergency (ER) | payer OTHER, MEDICAID, SELFPAY ==
[2023-04-17 08:38] VITALS: BP 140/98; PULSE 103; RESP 24; TEMP 36.9; O2SAT 96; BMI 29.2
--- NOTE | 2023-04-17 08:44 | ECG_ITS ---
APPROVED REPORT Exam: Resting ECG HR:93 bpm ECG Measurements Heart Rate 93 AXES PA 141 P 67 QRSd 93 QRS 61 QT 340 T 4 QTc 391 Conclusion SINUS RHYTHM NONSPECIFIC T-WAVE ABNORMALITY BORDERLINE ECG UNCONFIRMED REPORT Electronically signed by : Brett Huerta MD 04/17/2023 17:11:33
--- NOTE | 2023-04-17 08:50 | HMH.EDGENADL ---
Discharge Plan Disposition Patient Disposition: Home, Self-Care Condition: Good Prescriptions Prescriptions: New albuterol sulfate 90 mcg/actuation HFA aerosol inhaler 2 inh inhalation Q6H PRN (Reason: shortness of breath or wheezing) Qty: 8.5 0RF prednisone 50 mg tablet 50 mg PO DAILY 5 Days Qty: 5 0RF No Action levocetirizine [Xyzal] 5 mg tablet 5 mg PO DAILY omeprazole 20 mg capsule,delayed release(DR/EC) 20 mg PO DAILY rizatriptan 10 mg tablet 10 mg PO .COMPLEX PRN (Reason: migraine headache) Qty: 10 5RF Rx Instructions: 10 mg orally as needed for migraine. Max 2 tabs/day or 4 tabs/week. PRN; albuterol sulfate [Ventolin HFA] 90 mcg/actuation HFA aerosol inhaler 2 puff inhalation Q6H PRN norethindrone (contraceptive) [Ortho Micronor] 0.35 mg tablet 0.35 mg PO DAILY Qty: 28 11RF Referrals Follow up/Referrals: Briseida Peguero PA [Primary Care Provider] - See instructions Activity Restrictions/Add. Instructions Additional Instructions/Restrictions: You were evaluated in the emergency department today. 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 You were given a dose of steroids here today, so start the steroids tomorrow. Follow-up with your primary care provider over the next 4 days for reassessment. Return to the emergency department for new or worsening symptoms. Clinical Impressions Clinical Impression: Viral URI with cough, Asthma with acute exacerbation Stand Alone Forms Stand Alone Forms: Work/School Release Instructions Patient Instructions: DI for Asthma -- Adult, DI for Viral Upper Respiratory Infection -- Adult Discharge ED Provider: Emily Cabral General Adult HPI General Chief complaint: Shortness of Breath/Dyspnea Stated complaint: chest congestion soa Time Seen by Provider: 04/17/23 08:42 History of Present Illness HPI narrative: This patient is a 38-year-old female with a history of asthma presenting to the emergency department for evaluation with concern for wheezing. Patient reports that she has had viral upper respiratory infection symptoms over the last 4 days with cough, congestion, and slight wheezing. She has been using her rescue inhaler, but she has used it 10 times since yesterday and has not been able to take care of her wheezing. She denies any other concerns or complaints. I did note a bruise on her forehead, which she states is from passing out while intoxicated. No persistent headache, vision changes, numbness, tingling, weakness, or other neurologic symptoms. Related Data Home Medications Medication Instructions Recorded Confirmed albuterol sulfate 90 mcg/actuation 2 puff inhalation Q6H PRN 01/06/23 04/01/23 aerosol inhaler (Ventolin HFA) levocetirizine 5 mg tablet (Xyzal) 5 mg PO DAILY 04/01/23 04/01/23 omeprazole 20 mg capsule,delayed 20 mg PO DAILY 04/01/23 04/01/23 release Previous Rx's Medication Instructions Recorded norethindrone (contraceptive) 0.35 0.35 mg PO DAILY #28 tabs 09/13/22 mg tablet (Ortho Micronor) rizatriptan 10 mg tablet 10 mg PO .COMPLEX PRN migraine 04/01/23 headache #10 tabs albuterol sulfate 90 mcg/actuation 2 inh inhalation Q6H PRN shortness 04/17/23 aerosol inhaler of breath or wheezing #8.5 grams prednisone 50 mg tablet 50 mg PO DAILY 5 days #5 tabs 04/17/23 Allergies Allergy/AdvReac Type Severity Reaction Status Date / Time propoxyphene Allergy Unknown Verified 03/05/23 13:06 [From JONNIE-N 100] aspirin Allergy Verified 03/05/23 13:06 [facility] Disclaimer: The information contained in this section may have been updated after the patient was seen, as this information can be updated by other users. 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 Allergies Asthma Endometriosis Enteritis Exposure to the flu Gastroenteritis Headache Influenza Migraine Otitis media PCOS (polycystic ovarian syn
[2023-04-17 08:56] VITALS: PULSE 87; PULSE 92; O2SAT 96
[2023-04-17 09:00] VITALS: BP 121/88; PULSE 96; RESP 16; O2SAT 98
[2023-04-17 09:20] LABS: Coronavirus 19, PCR Not Detected (NotDetected); Influenza A, PCR Not Detected (NotDetected); Influenza B, PCR Not Detected (NotDetected)
--- NOTE | 2023-04-17 09:22 | PC.NURSE ---
patient sitting up in bed on phone; denies needs/concerns at this time.
--- NOTE | 2023-04-17 09:26 | PC.NURSE ---
DR SPARROW AT BEDSIDE FOR REEVALUATION
[2023-04-17 09:30] VITALS: BP 135/90; PULSE 115; O2SAT 95
--- NOTE | 2023-04-17 10:05 | PC.NURSE ---
DR SPARROW AT BEDSIDE
[2023-04-17 10:06] VITALS: BP 134/84; PULSE 112; RESP 18; TEMP -17.7; TEMP 0; O2SAT 96
== END 2023-04-17 10:10 | disposition home or self-care (01) ==
PROVIDERS: Emergency Provider Emergency Medicine; PCP Physician Assistant
DX: J45.901 Unspecified asthma with (acute) exacerbation (principal); J06.9 Acute upper respiratory infection, unspecified; R05.9 Cough, unspecified; R00.0 Tachycardia, unspecified
CPT/HCPCS: 87636; 93005; 99283

== ENCOUNTER 2023-04-18 05:56 | Emergency (ER) | payer OTHER, MEDICAID, SELFPAY ==
[2023-04-18 05:58] VITALS: BP 169/107; PULSE 100; RESP 22; TEMP 36.6; O2SAT 92; BMI 29.2
--- NOTE | 2023-04-18 06:09 | XR_ITS ---
FINAL REPORT CLINICAL HISTORY: SOB COMPARISON: 01/06/2023 FINDINGS: Two views of the chest were obtained. The heart size and pulmonary vascularity are within normal limits. The mediastinum is normal. No acute pulmonary abnormality is identified. There is no pneumothorax. The bony thorax is intact. IMPRESSION: No active cardiopulmonary disease. Reviewed, Interpreted and Dictated by Az Mcpherson III, MD Transcribed by Tiarra Abad Authenticated and [facility]
--- NOTE | 2023-04-18 06:09 | HMH.EDGENADL ---
Discharge Plan Disposition Patient Disposition: Home, Self-Care Condition: Good Chief Complaint: Shortness of Breath/Dyspnea Prescriptions Prescriptions: No Action albuterol sulfate [Ventolin HFA] 90 mcg/actuation HFA aerosol inhaler 2 puff inhalation Q6H PRN (Reason: Respiratory Distress) norethindrone (contraceptive) [Ortho Micronor] 0.35 mg tablet 0.35 mg PO DAILY Qty: 28 11RF prednisone 20 mg tablet 20 mg PO DIRECTED Referrals Follow up/Referrals: Briseida Peguero PA [Primary Care Provider] - See instructions Clinical Impressions Clinical Impression: Asthma with exacerbation Instructions Patient Instructions: DI for Asthma -- Adult, DI for Shortness of Breath Discharge ED Provider: Tigre Adames General Adult HPI General Chief complaint: Shortness of Breath/Dyspnea Stated complaint: Difficulty breathing,cough Time Seen by Provider: 04/18/23 06:05 Mode of Arrival: Ambulatory Source of Information: Patient Limitations: No Limitations Description of Symptoms (Recalled from ER Triage Doc. by RN): Pt presents with c/o SOA with cough that has gotten worse since yesterday. Pt was seen here yesterday and given neb tx and steroids with temporary relief woke up at 4am could not breathe. Pt O2 92% at this time. Productive cough, green - yellowish phlegm. History of Present Illness HPI narrative: Patient has a PMHx significant for asthma who presents to the ED for SOB and cough. Patient reports that she has had viral upper respiratory infection symptoms over the last 5 days with cough, congestion, and wheezing. Patient was seen yday morning for SOB here in the ED but had symptomatic improvement after she received 3 DuoNebs and steroids. Patient was discharged with a 5-day course of prednisone, but patient notes that she has not picked the prescription up yet. Overnight, patient notes that her shortness of breath and cough progressively worsened. Patient notes that she has been using her rescue inhaler every 30 minutes, approximately 1 puff every 30 minutes. Despite this, she has not been able to take care of her persistent cough and wheezing. Patient was covid flu negative yday. She denies any other concerns or complaints. Patient had a healing bruise on her forehead, which she states is from passing out while intoxicated over the weekend. No persistent headache, vision changes, numbness, tingling, weakness, or other neurologic symptoms. Related Data Home Medications Medication Instructions Recorded Confirmed albuterol sulfate 90 mcg/actuation 2 puff inhalation Q6H PRN 01/06/23 04/18/23 aerosol inhaler (Ventolin HFA) Respiratory Distress prednisone 20 mg tablet 20 mg PO DIRECTED 04/18/23 04/18/23 Previous Rx's Medication Instructions Recorded norethindrone (contraceptive) 0.35 0.35 mg PO DAILY #28 tabs 09/13/22 mg tablet (Ortho Micronor) Allergies Allergy/AdvReac Type Severity Reaction Status Date / Time propoxyphene Allergy Unknown Verified 03/05/23 13:06 [From DARARTIE-N 100] aspirin Allergy Verified 03/05/23 13:06 [facility] Disclaimer: The information contained in this section may have been updated after the patient was seen, as this information can be updated by other users. 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 Allergies Asthma Endometriosis Enteritis Exposure to the flu Gastroenteritis Headache Influenza Migraine Otitis media PCOS (polycystic ovarian syndrome) Pelvic pain in female Seasonal allergic rhinitis Stomach ulcer Tonsillitis Upper respiratory infection URI (upper respiratory infection) Vomiting Surgical History H/O right wrist surgery H/O tubal ligation History of cholecystectomy History of endometrial ablation Family History Other Family history of cancer Family history of diabetes mellitus
[2023-04-18 06:30] VITALS: BP 132/90; PULSE 87; O2SAT 95
[2023-04-18 06:35] VITALS: PULSE 89
[2023-04-18 06:56] VITALS: BP 132/90; PULSE 127; RESP 20; TEMP 37.1; O2SAT 99
--- NOTE | 2023-04-18 07:32 | PC.NURSE ---
call made to radiology for update on chest xray results. rad reports it has not been read yet. ask rad to send report again.
== END 2023-04-18 08:10 | disposition home or self-care (01) ==
PROVIDERS: Emergency Provider Emergency Medicine; PCP Physician Assistant
DX: J45.901 Unspecified asthma with (acute) exacerbation (principal); R06.02 Shortness of breath; R05.9 Cough, unspecified
CPT/HCPCS: 71046; 99285

== ENCOUNTER → 2023-04-29 12:35 | Outpatient (CLI) | payer OTHER, MEDICAID, SELFPAY ==
--- NOTE | 2023-04-29 12:36 | CA_ITS ---
APPROVED REPORT EXAM: Comprehensive 2D, Doppler, and color-flow Echocardiogram Rn Wound Care: Zamzam Hines RT(R) Ht: 5 ft 2 in Wt: 160lbs BSA: 1.74 BP: 139/78 mmHg Indications: hx of pericarditis with history of IV drug use, quit 4 years ago, severe migraines getting worse with age, hepatitis C, palpitations, bubble study performed per MD. Echo Enhancing Agent Indication: Rule Out Septal Defect Agent(s) / Amount(s) Used: Agitated Saline 20 cc 2D Dimensions Left Atrium 2.37 cm F: 2.7 - 3.8 LA Volume 13.00 mL LVOT 1.89 cm (M/F) 1.5-2.5 LA Volume Index 7.47 mL/m2 (M/F) 16-34 EF AP4 37.30 % GL Strain -12.6 % M-Mode Dimensions RVDd 2.32 cm (0.9-2.6) LVDd 4.54 cm (3.5-5.7) Ao Diam 2.33 cm (2.0-3.7) LVDs 3.43 cm (3.5-5.7) IVSd 0.75 cm (0.6-1.1) PWd 0.79 cm (0.6-1.1) EF (Teich) 48.60% FS 24.40% EDV (Teich) 94.40 mL ESV (Teich) 48.50 mL LV Diastology E Decel Time 200 (160-240 msec) E/A Ratio 0.7 MED E' 6.0 (>= 7 cm/sec) E'/MED E' Ratio 6.25 (<= 14) LAT E' 9.7 (>= 10 cm/sec) E/LAT E' Ratio 3.87 (<= 14) Mitral Valve MV E Max Kyler. 38.0 (40-130 cm/s) MV A Velocity 53.0 (40-130 cm/s) E/A Ratio 0.71 MV Decel. Time 200 (160-240 ms) Left Ventricle The left ventricle is normal size. Left ventricular systolic function is mildly decreased. There is normal LV wall thickness. There is mild global hypokinesis present. Grade 1 diastolic dysfunction is present. LVEF is 45-50%. Right Ventricle The right ventricle is normal size. The right ventricular systolic function is normal. Atria The left atrium size is normal. The right atrium size is normal. There is possible Doppler evidence of left to right interatrial shunt. Intravenous agitated saline study at rest and with Valsalva demonstrates bubbles in the LV within 3???5 cardiac cycles, suggestive of intracardiac shunt. Aortic Valve The aortic valve opens well. There is no aortic valvular stenosis. Trace aortic regurgitation. Mitral Valve The mitral valve is normal in structure. No evidence of mitral valve stenosis. Trace mitral regurgitation. Tricuspid Valve The tricuspid valve leaflets are thin and pliable. Trace tricuspid regurgitation. There is insufficient TR jet to estimate RVSP. Pulmonic Valve The pulmonary valve is normal in structure. Trace pulmonic regurgitation. Great Vessels The aortic root is normal in size. The ascending aorta is normal in size. IVC is normal in size and collapses >50% with inspiration. Pericardium There is no pericardial effusion. Other Information Study Quality: Fair Conclusion Mild reduction in global LV systolic function (LVEF 45-50%). No significant valvular stenosis or regurgitation. There is possible Doppler evidence of left to right interatrial shunt. Intravenous agitated saline study at rest and with Valsalva demonstrates bubbles in the LV within 3???5 cardiac cycles, suggestive of intracardiac shunt. Further evaluation to assess the reduction in LV systolic function is recommended with cardiac MRI (cardiomyopathy protocol). Also, further assessment of the intracardiac shunt is recommended with TANNER. Electronically signed by : Triny Rodriguez MD 05/04/2023 22:44:40
== END ==
PROVIDERS: PCP Physician Assistant; Visit Provider Specialist
DX: R51.9 Headache, unspecified (principal); Z86.79 Personal history of other diseases of the circulatory system
CPT/HCPCS: 93306

== ENCOUNTER 2023-05-19 09:35 | Day surgery (SDC) | payer OTHER, MEDICAID, SELFPAY ==
[2023-05-15 13:47] VITALS: BMI 29.2
[2023-05-19] VITALS (8 sets, daily range): BP systolic 115–136; BP diastolic 69–89; PULSE 70–92; RESP 16–18; TEMP 36.3–36.6; O2SAT 94–100
[2023-05-19] MEDS: LACTATED RINGERS 1000ML 1,000 ML 25 ML IV (09:43)
[2023-05-19 10:09] LABS: Urine Pregnancy, HCG Qual. Negative (Negative)
[2023-05-19 10:11] LABS: Basophils % 0.5 % (0.1-2.0); Eosinophils # 0.5 K/mm3 (0.0-0.4); Eosinophils % 6.9 % (0.1-12.0); Hematocrit 43.2 % (37.0-47.0); Hemoglobin 15.2 g/dL (12.2-16.2); Lymphocytes # 1.6 K/mm3 (0.7-4.5); Lymphocytes % 21.8 % (10-50); Mean Corpuscular HGB Conc 35.1 g/dL (31.8-35.4); Mean Corpuscular Hemoglobin 32.4 pg (27.0-31.2); Mean Corpuscular Volume 92.4 fl (81-99); Mean Platelet Volume 8.2 fl (7.4-10.4); Monocytes # 0.4 K/mm3 (0.1-1.0); Neutrophils # 4.8 K/mm3 (1.8-7.8); Neutrophils % 65.9 % (37.0-80.0); Platelet Count 243 K/mm3 (142-424); Red Blood Count 4.68 M/mm3 (4.20-5.40); Red Cell Distribution Width 13.3 % (11.5-17.5); White Blood Count 7.2 K/mm3 (4.8-10.8)
[2023-05-19 10:15] LABS: Chloride 105 mmol/L (98-107); Potassium 3.6 mmoL/L (3.5-5.1); Sodium 140 mmol/L (136-145)
[2023-05-19 10:18] LABS: Anion Gap 11.6 mEq/L (5-15); Blood Urea Nitrogen 14 mg/dl (7-17); Carbon Dioxide 27 mmol/L (22.0-30.0); Creatinine Clearance Estimated 125 mL/min (50-200); Estimated Glomerular Filt Rate 94 ml/min (>60); GFR (African American) 113 ML/MIN (>60)
[2023-05-19 10:19] LABS: Calcium 8.3 mg/dl (8.4-10.2); Glucose 97 mg/dl (74-100)
--- NOTE | 2023-05-19 10:47 | EXP.ANES.CKL ---
[facility] Disclaimer: The information contained in this section may have been updated after the patient was seen, as this information can be updated by other users. 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 Allergies Asthma Endometriosis Enteritis Exposure to the flu Gastroenteritis Headache Influenza Migraine Otitis media PCOS (polycystic ovarian syndrome) Pelvic pain in female Seasonal allergic rhinitis Stomach ulcer Tonsillitis Upper respiratory infection URI (upper respiratory infection) Vomiting Surgical History H/O right wrist surgery H/O tubal ligation History of cholecystectomy History of endometrial ablation Family History Other Family history of cancer Family history of diabetes mellitus type II Family history of hypertension Family history of irritable bowel syndrome Social History Smoking Status: Never smoker alcohol intake: current substance use type: former substance user and heroin current occupational status: employed Travel in the last 8 weeks: None [facility] Anesthesia Checklist Patient Identification Patient Identification: Arm Band, Family and Verbal (Name & ) Structural Data Admitted From: Home Planned Operative Procedure/s: Excision of Facial and chest dermal piercings Consent for Planned Operative Procedure(s) Verified: Yes Verified Documents: Surgical Consent and History and Physical NPO Status Verified Time NPO: 22:00 Chart Verification Results Verified: CBC, BMP, ECG, Chest Xray and HCG Additional verifications Patient : No Anesthesia Reactions: No Hx Blood Transfusions: No Blood Transfusion Reaction: No Cardiovascular Assessment Heart Sounds: S1 & S2 Pulse Rhythm: Irregular Peripheral Edema: No Airway Assessment Mallampati Score:: Class I C-Spine Mobility Assessed: Yes (FROM) TMJ Mobility Assessed: Yes Dentition: Good Dentition (Nothing loose per pt.) Neurological Assessment Level of Consciousness: Awake, Alert, Appropriate and Follows Commands Hx Seizures: No Numbness or tingling in extremities: No Anesthesia Plan Anesthesia Risk discussed: Yes Anesthesia Plan: Verified ASA Class: III Anesthesia Type: General
[2023-05-19] MEDS: CEFAZOLIN SODIUM 1 GM in 0.9 % SODIUM CHLORIDE 50 ML IV (11:23)
[2023-05-19] MEDS: LIDOCAINE 1% 20ML MDV 20 ML (11:35)
--- NOTE | 2023-05-19 11:54 | P.OP_ITS ---
Date of procedure: 05/19/23 Pre-op Diagnosis:: Foreign body face and mid chest (dermal piercings) Post-op Diagnosis:: Same Procedure performed:: Incision with removal of foreign body (dermal piercing) from the face and mid chest Surgeon:: zA Flores MD SENIOR LITIGATION PARALEGAL:: Sebastien Branch Anesthesia: LMA Estimated blood loss (mL): 1 Clinical Note:: Patient is a 38-year-old female with apparent history of hepatitis C referred by Dr. Zheng for removal of dermal piercings. Patient has had significantly progressively worsening headaches. Reportedly patient has prior history of IV drug use. Neurology is planning brain MRI and MRA a to assess for aneurysms and possible CONSIGNEE vasculitis. She has prior history of endocarditis. Patient has a dermal piercing on her left face and mid chest area. She is sent for surgical evaluation to have these removed due to the need for her MRI. 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 She was given preoperative intravenous antibiotic. In the operating room she was placed in a supine position. Anest hesia was induced via LMA. Areas were prepped and draped. Attention was first turned to the foreign body piercing on the chest. The post was more easily accessible than the one on the face. This was grasped with a fine hemostat. Incision was made and careful sharp dissection was carried down through full- thickness of the skin to the underlying flange which was adherent to dermal tissue with scar tissue. It was dissected free and removed. Pressure was held for hemostasis. Small incision was closed with a 5-0 plain gut. In a similar fashion the post on the facial dermal piercing was grasped. This was somewhat more difficult as it was virtually flush with the skin. Incision was made initially with 15 blade and careful dissection was carried down using an 11 blade ultimately with some manipulation freeing the subdermal flange from the fibrous scar tissue. Pressure was held for several minutes for hemostasis. Incision site was closed with a 5-0 plain gut. Dermabond was applied to both sites. Condition: stable Disposition: PACU Complications:: None immediately apparent
--- NOTE | 2023-05-21 11:09 | EXP.ANES.II ---
[facility] Anesthesia Record Part II Anesthesia Record Part II Discharge Time: 12:24 Destination: Surgical Day Care (OP Surgery) PACU nurse assessment reviewed?: Yes Patient Condition:: Good Anesthesia Complications:: None Swallowing reflex intact?: Yes Airway Patency: Patent Cyanosis?: No Blood Pressure: 136/84 SaO2: 100 Respiratory Rate: 18 Pulse Rate: 71 Temperature: 97.4 F Mental Status: Alert & Oriented Pain level:: 0 Nausea and/or vomitting:: None Intake, IV Amount: 0 Hydration: Adequate
[2023-05-21 11:11] VITALS: BP 136/84; PULSE 71; RESP 18; TEMP 36.3; O2SAT 100
== END 2023-05-19 12:54 | disposition home or self-care (01) ==
PROVIDERS: PCP Physician Assistant; Visit Provider Surgery
PROC: (CPT 10121; principal; 2023-05-19 11:30)
DX: S00.85XA Superficial foreign body of other part of head, initial encounter (principal); S20.35 Superficial foreign body of front wall of thorax; W45.8XXA Other foreign body or object entering through skin, initial encounter
CPT/HCPCS: 10121 ×2; 80048; 81025; 85025; 96375

== ENCOUNTER 2023-06-02 07:16 | Day surgery (SDC) | payer OTHER, MEDICAID, SELFPAY ==
[2023-05-28 11:13] VITALS: BMI 29.6
--- NOTE | 2023-06-02 07:42 | ECG_ITS ---
APPROVED REPORT Exam: Resting ECG HR:71 bpm ECG Measurements Heart Rate 71 AXES TX 144 P 56 QRSd 107 QRS 36 QT 403 T -43 QTc 425 Conclusion SINUS RHYTHM Late R wave progression with nonspecific ST-T wave changes, unchanged from May 03 ABNORMAL ECG UNCONFIRMED REPORT Electronically signed by : Brett Huerta MD 06/02/2023 17:28:52
[2023-06-02] MEDS: LACTATED RINGERS 1000ML 1,000 ML 25 ML IV (07:45)
[2023-06-02 07:48] VITALS: BP 116/66; PULSE 67; RESP 16; TEMP 36.1; O2SAT 97
--- NOTE | 2023-06-02 07:50 | P.PNANES_ITS ---
[facility] Disclaimer: The information contained in this section may have been updated after the patient was seen, as this information can be updated by other users. 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 Allergies Asthma Asthma with acute exacerbation Asthma with exacerbation Bacterial vaginosis Endometriosis Enteritis Exposure to the flu Foreign body in skin Foul smelling vaginal discharge Foul smelling vaginal discharge Gastroenteritis Headache Hepatitis C infection Heroin addiction Influenza Medical clearance for incarceration Migraine Otitis media PCOS (polycystic ovarian syndrome) Pelvic pain in female Pierced lip infection Seasonal allergic rhinitis Stomach ulcer Tonsillitis Upper respiratory infection URI (upper respiratory infection) UTI (urinary tract infection) Viral gastroenteritis Viral URI with cough Vomiting Surgical History H/O right wrist surgery H/O tubal ligation History of cholecystectomy History of endometrial ablation Family History Other Family history of cancer Family history of diabetes mellitus type II Family history of hypertension Family history of irritable bowel syndrome Social History Smoking Status: Never smoker alcohol intake: current substance use type: former substance user and heroin current occupational status: employed Travel in the last 8 weeks: None [facility] Anesthesia Checklist Patient Identification Patient Identification: Arm Band and Verbal (Name & ) Structural Data Admitted From: Home Planned Operative Procedure/s: TANNER with cardioversion Consent for Planned Operative Procedure(s) Verified: Yes NPO Status Verified Time NPO: 00:00 Chart Verification Results Verified: CBC, BMP and HCG Additional verifications Anesthesia Reactions: No Hx Blood Transfusions: No Blood Transfusion Reaction: No Airway Assessment C-Spine Mobility Assessed: Yes TMJ Mobility Assessed: Yes Neurological Assessment Level of Consciousness: Awake Hx Seizures: No Numbness or tingling in extremities: No Anesthesia Plan Anesthesia Risk discussed: Yes Anesthesia Plan: Verified ASA Class: II Anesthesia Type: MAC
--- NOTE | 2023-06-02 07:55 | CA_ITS ---
APPROVED REPORT EXAM: Comprehensive 2D, Doppler, and color-flow Echocardiogram Camp Advisor: Bhargavi Shetty RVT Ht: 5 ft 2 in Wt: 162lbs BSA: 1.75 BP: 129/82 mmHg Indications: PFO/ASD. HX Endocarditis Echo Enhancing Agent Indication: Rule out Shunt Agent(s) / Amount(s) Used: Agitated Saline 5 cc Procedure After obtaining informed consent, patient underwent transesophageal echo in the [facility]. Type of Sedation : MAC Sedation was administered by Erich Cruz CJodiR.N.AJodi Sedation start time: 9:50 Case end Time: 10:10 Sedation was achieved intravenously with: Propofol (600 mg) Transesophageal probe was inserted and advanced into esophagus without difficulty by Dr. Triny Rodriguez. The TANNER was performed without complications. Throughout the procedure, the blood pressure, pulse oximetry, cardiac rhythm, and rate were monitored. The patient tolerated the procedure without adverse effects. Recovery from conscious sedation was uneventful and vital signs were stable. Left Ventricle The left ventricle is normal size. Left ventricular systolic function is mildly decreased. There is normal left ventricular wall thickness. There is mild global hypokinesis present. LVEF is 45-50%. Right Ventricle The right ventricle is normal size. The right ventricular systolic function is normal. Atria The left atrium size is normal. The right atrium size is normal. There is a small secundum???type atrial septal defect (ASD) present, measuring approximately 1 mm in diameter. Color Doppler demonstrates intermittent left to right interatrial shunt. Administration of agitated saline demonstrates migration of bubbles from the right atrium into the left atrium within 3 cardiac cycles, consistent with presence of interatrial shunt. Qp:Qs ratio=1.1 (RVOT VTI=23.4 cm. LVOT VTI=22.3. RVOT diameter=2.1 cm. LVOT diameter=2.0 cm). Aortic Valve The aortic valve is normal in structure. There is no aortic valvular stenosis. No aortic regurgitation is present. Mitral Valve The mitral valve is mildly thickened. No evidence of mitral valve stenosis. Trace mitral regurgitation. Tricuspid Valve The tricuspid valve leaflets are thin and pliable. Trace tricuspid regurgitation. There is insufficient TR jet to estimate RVSP. Pulmonic Valve The pulmonary valve is normal in structure. Trace pulmonic regurgitation. Great Vessels The aortic root is normal in size. The ascending aorta is normal in size. Pericardium There is no pericardial effusion. Other Information Study Quality: Fair Conclusion Mildly reduced LV systolic function (LVEF 45-50%). Normal RV size and function. Small secundum???type atrial septal defect (ASD) present, measuring approximately 1 mm in diameter. Color Doppler demonstrates intermittent left to right interatrial shunt. Administration of agitated saline demonstrates migration of bubbles from the right atrium into the left atrium within 3 cardiac cycles, consistent with interatrial shunt. Echo Qp:Qs ratio=1.1. Electronically signed by : Triny Rodriguez MD 06/02/2023 12:19:21
[2023-06-02 08:13] LABS: Basophils # 0.1 K/mm3 (0-0.2); Eosinophils # 0.4 K/mm3 (0.0-0.4); Eosinophils % 7.5 % (0.1-12.0); Hematocrit 41.5 % (37.0-47.0); Hemoglobin 14.5 g/dL (12.2-16.2); Lymphocytes # 1.4 K/mm3 (0.7-4.5); Mean Corpuscular HGB Conc 34.9 g/dL (31.8-35.4); Mean Corpuscular Hemoglobin 32.7 pg (27.0-31.2); Mean Corpuscular Volume 93.6 fl (81-99); Mean Platelet Volume 8.5 fl (7.4-10.4); Monocytes # 0.4 K/mm3 (0.1-1.0); Monocytes % 8.1 % (1.7-9.3); Neutrophils % 57.4 % (37.0-80.0); Platelet Count 187 K/mm3 (142-424); Red Blood Count 4.43 M/mm3 (4.20-5.40); Red Cell Distribution Width 13.2 % (11.5-17.5); White Blood Count 5.3 K/mm3 (4.8-10.8)
[2023-06-02 08:16] LABS: Anion Gap 8.6 mEq/L (5-15); Blood Urea Nitrogen 11 mg/dl (7-17); Carbon Dioxide 26 mmol/L (22.0-30.0); Chloride 109 mmol/L (98-107); Creatinine Clearance Estimated 147 mL/min (50-200); Estimated Glomerular Filt Rate 112 ml/min (>60); GFR (African American) 135 ML/MIN (>60); Glucose 97 mg/dl (74-100); INR 1.03 (0.9-1.1); Potassium 3.6 mmoL/L (3.5-5.1); Prothrombin Time 11.1 seconds (10.1-12.5); Sodium 140 mmol/L (136-145)
[2023-06-02 08:30] LABS: HCG Qualitative, Serum Negative (Negative)
[2023-06-02 09:50] VITALS: O2SAT 97
[2023-06-02 10:13] VITALS: BP 96/49; PULSE 111; RESP 18; TEMP 36.4; O2SAT 93
[2023-06-02 10:20] VITALS: BP 100/56; PULSE 101; RESP 18; O2SAT 98
[2023-06-02 10:35] VITALS: BP 117/53; PULSE 84; RESP 18; O2SAT 98
[2023-06-02 10:50] VITALS: BP 116/68; PULSE 82; RESP 18; O2SAT 97
== END 2023-06-02 10:50 | disposition home or self-care (01) ==
PROVIDERS: PCP Physician Assistant; Visit Provider Internal Medicine
DX: R42 Dizziness and giddiness (principal); I42.9 Cardiomyopathy, unspecified; F19.11 Other psychoactive substance abuse, in remission; R06.09 Other forms of dyspnea; R07.89 Other chest pain; R94.31 Abnormal electrocardiogram [ECG] [EKG]; Z86.79 Personal history of other diseases of the circulatory system
CPT/HCPCS: 36415; 80048; 84703; 85025; 85610; 93005; 93270; 93312; 93319; J2704

== ENCOUNTER 2023-06-11 09:42 | Outpatient (CLI) | payer OTHER, MEDICAID, SELFPAY ==
--- NOTE | 2023-06-11 09:48 | MR_ITS ---
APPROVED REPORT Websphere Administrator: CLINICAL INDICATION Cardiomyopathy evaluation, known intracardiac shunt (evaluate Qp:Qs ratio) TECHNIQUE Image Acquisition: Cardiac magnetic resonance (CMR) was performed on Siemens Espree MRI 1.5T scanner. Software platform sequences were performed using the Siemens ViaCLIX MR B19 platform. A set of three-plane, low-resolution, large [id number] localizers were initially acquired. Then axial, coronal, sagittal TrueFISP, as well as axial HASTE images, were obtained. These were followed by gated TrueFISP breathold cinematic sequences obtained in the short axis with 8 mm slices and 2 mm gaps, 2-chamber (vertical long axis), 3-chamber, 4-chamber (horizontal long axis). A bolus of contrast was injected intravenously with first-pass sequences obtained in the short axis and four-chamber planes. After approximately 10 minutes, a TI civil clerk sequence was performed to determine the optimal TI time. Using the optimized TI time, delayed contrast enhancement segmented inversion???recovery TurboFLASH sequences were obtained in the short axis, 2-chamber, 3-chamber, and 4-chamber projections. 2D-velocity phase mapping was performed. Functional parameters were calculated by offline analysis on an independent workstation ([employer], [employer]). Contrast: ProHance??? (Gadoteridol) FINDINGS MORPHOLOGY AND FUNCTION Left ventricle: The left ventricle is normal in size. The indexed left ventricular end-diastolic volume (LVEDVi) is 70 ml/m2 (reference range 57-105 ml/m2 in males, 56-96 ml/m2 in females). Normal left ventricular systolic function is present. There is normal left ventricular wall thickness. There are no regional wall motion abnormalities noted. LVEF is calculated at 64.3% (reference range 57-77%). Right ventricle: The right ventricle is normal in size. The indexed right ventricular end-diastolic volume (RVEDVi) is 53 ml/m2 (reference range 61-121 ml/m2 in males, 48-112 ml/m2 in females). Normal right ventricular systolic function is present. RVEF is calculated at 53.9% (reference range 52-72% in males, 51-71% in females). Atria: The left atrium is normal in size. The maximum indexed left atrial volume is 27 ml/m2 (reference range 26-52 ml/m2 in males, 27-53 ml/m2 in females). The right atrium is normal in size. The maximum indexed right atrial volume is 23 ml/m2 (reference range 18-90 ml/m2). Aorta: The diameter of the aortic annulus is normal, measuring 21 mm (coronal view reference range 21-30 mm in males, 19-27 mm in females). The diameter of the aortic sinus is normal, measuring 29 mm (coronal view reference range 25-42 mm in males, 24-36 mm in females). The diameter of the sinotubular junction is normal, measuring 21 mm (coronal view reference range 18-32 mm in males, 18-28 mm in females). The diameters of the ascending and descending thoracic aorta are normal. Main pulmonary artery: The main pulmonary artery diameter is normal. Pericardium: The pericardial thickness is normal. The pericardial thickness measures 2.4 cm (normal < 4.0 cm). There is no pericardial effusion. VALVES The valvular morphologies in the visualized sequences appear normal. There is no significant valvular stenosis or regurgitation of the mitral, aortic, tricuspid, or pulmonic valve noted visually. Systolic anterior motion of the mitral valve is not visualized. Ratio of pulmonary to systemic flow, Qp:Qs ratio = 1.0 (normal < or = 1.2), demonstrating no evidence of hemodynamically significant shunt. TISSUE CHARACTERIZATION Resting Perfusion: Normal myocardial blood flow at rest. No evidence of resting hypoperfusion. Myocardial Fibrosis and/or edema: Normal gadolinium kinetics are present. No evidence of late gadolinium enhancement is noted, consistent with absence of myocardial scarring, infarction, or necrosis. T2-weighted imaging demonstrates no evidence of myocardial edema or inflammation. OTHER No other significant findings are noted. However, this exam is focused on the cardiac structure and function. IMPRESSION Normal LV size with normal LV systolic function. LVEDVi= 70 ml/m2 and LVEF= 64.3%. Normal RV size with normal RV systolic function. RVEDVi= 53 ml/m2 and RVEF= 53.9%. No atrial enlargement. No CMR evidence of myocardial scarring, infarction, or necrosis. No evidence of myocardial edema or inflammation. Perfusion analysis demonstrates normal blood flow at rest with no evidence of resting hypoperfusion. Ratio of pulmonary to systemic flow, Qp:Qs ratio = 1.0 (normal < or = 1.2), demonstrating no evidence of hemodynamically significant shunt. Overall, this CMR demonstrates normal biventricular size and function. The Qp:Qs ratio is normal 1.0 (in the setting of known intracardiac shunt), thereby suggesting the interatrial shunt is unlikely to be hemodynamically significant. COMPARISON None CRITICAL RESULT None COMMUNICATION Per this written report The findings of this cardiac MR were reviewed, reported, and signed by Lamont Rodriguez MD (Bus Cleaner). Conclusion Electronically signed by : Triny Rodriguez MD 06/13/2023 19:09:12
[2023-06-11] MEDS: SODIUM CHLORIDE 0.9% 50ML BAG 25 ML IV (11:48)
[2023-06-11] MEDS: GADOTERIDOL INJ 17ML SYRINGE 16 ML IV (11:48)
[2023-06-11] MEDS: SODIUM CHLORIDE 0.9% 10ML SYR (RAD ONLY) 10 ML IV (11:48)
== END 2023-06-11 23:59 ==
LOC: RAD 09:43
PROVIDERS: PCP Physician Assistant; Visit Provider Physician Assistant
DX: R06.09 Other forms of dyspnea (principal); R07.89 Other chest pain; I42.8 Other cardiomyopathies
CPT/HCPCS: 75561; A9576

== ENCOUNTER 2023-06-24 09:59 | Outpatient (CLI) | payer OTHER, MEDICAID, SELFPAY ==
[2023-06-24 10:47] LABS: Basophils % 0.6 % (0.1-2.0); Eosinophils # 0.4 K/mm3 (0.0-0.4); Eosinophils % 6.6 % (0.1-12.0); Hematocrit 41.4 % (37.0-47.0); Hemoglobin 14.7 g/dL (12.2-16.2); Lymphocytes # 1.3 K/mm3 (0.7-4.5); Lymphocytes % 22.4 % (10-50); Mean Corpuscular HGB Conc 35.6 g/dL (31.8-35.4); Mean Corpuscular Volume 92.6 fl (81-99); Mean Platelet Volume 8.7 fl (7.4-10.4); Monocytes # 0.3 K/mm3 (0.1-1.0); Monocytes % 4.7 % (1.7-9.3); Neutrophils # 3.7 K/mm3 (1.8-7.8); Neutrophils % 65.7 % (37.0-80.0); Platelet Count 185 K/mm3 (142-424); Red Blood Count 4.47 M/mm3 (4.20-5.40); Red Cell Distribution Width 12.7 % (11.5-17.5); White Blood Count 5.6 K/mm3 (4.8-10.8)
[2023-06-24 10:56] LABS: Chloride 108 mmol/L (98-107); Potassium 4.4 mmoL/L (3.5-5.1); Sodium 137 mmol/L (136-145)
[2023-06-24 10:59] LABS: Alanine Aminotransferase 43 U/L (12-78); Albumin Level 4.2 g/dl (3.5-5.0); Albumin/Globulin Ratio 1.2 (1.1-1.8); Alkaline Phosphatase 48 U/L (38-126); Anion Gap 9.4 mEq/L (5-15); Aspartate Amino Transferase 32 U/L (14-36); Bilirubin,Total 0.9 mg/dl (0.2-1.3); Blood Urea Nitrogen 16 mg/dl (7-17); Calcium 8.7 mg/dl (8.4-10.2); Carbon Dioxide 24 mmol/L (22.0-30.0); Estimated Glomerular Filt Rate 112 ml/min (>60); GFR (African American) 135 ML/MIN (>60); Globulin 3.5 g/dL (1.3-3.2); Glucose 90 mg/dl (74-100); Total Protein,Serum 7.7 g/dl (6.3-8.2)
[2023-06-24 11:18] LABS: HCG,Quantitative < 2 mIU/ml (0-5.42)
== END 2023-06-24 23:59 ==
PROVIDERS: PCP Physician Assistant; Visit Provider Obstetrics & Gynecology
DX: Z01.812 Encounter for preprocedural laboratory examination (principal); N93.9 Abnormal uterine and vaginal bleeding, unspecified
CPT/HCPCS: 36415; 80053; 84702; 85025; 86850

== ENCOUNTER 2023-07-01 06:07 | Observation (INO) | payer OTHER, MEDICAID, SELFPAY ==
[2023-06-27 13:24] VITALS: BMI 28.3
[2023-07-01] VITALS (23 sets, daily range): BP systolic 104–155; BP diastolic 68–91; PULSE 64–91; RESP 16–20; TEMP 36.2–43; O2SAT 93–99
[2023-07-01] MEDS: LACTATED RINGERS 1000ML 1,000 ML 25 ML IV (06:13)
--- NOTE | 2023-07-01 07:10 | P.PNANES_ITS ---
[facility] Disclaimer: The information contained in this section may have been updated after the patient was seen, as this information can be updated by other users. 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 Asthma Endometriosis Gastroenteritis Headache Hepatitis C infection Unknown details Interatrial cardiac shunt Migraine PCOS (polycystic ovarian syndrome) Pelvic pain in female Stomach ulcer Surgical History H/O right wrist surgery H/O tubal ligation History of cholecystectomy History of endometrial ablation Family History Other Family history of cancer Family history of diabetes mellitus type II Family history of hypertension Family history of irritable bowel syndrome Social History Smoking Status: Never smoker alcohol intake: current substance use type: former substance user and heroin current occupational status: employed Travel in the last 8 weeks: None [facility] Anesthesia Checklist Patient Identification Patient Identification: Arm Band and Family Structural Data Admitted From: Home Planned Operative Procedure/s: [facility] Consent for Planned Operative Procedure(s) Verified: Yes Verified Documents: Surgical Consent and History and Physical NPO Status Verified Time NPO: 00:00 Additional verifications Patient : No Anesthesia Reactions: No Hx Blood Transfusions: No Blood Transfusion Reaction: No Cephalosporin Allergy: No Previous Colonoscopy: No Airway Assessment Mallampati Score:: Class I C-Spine Mobility Assessed: Yes TMJ Mobility Assessed: Yes Dentition: Good Dentition Neurological Assessment Level of Consciousness: Awake, Alert, Appropriate and Follows Commands Hx Seizures: No Numbness or tingling in extremities: No Anesthesia Plan Anesthesia Risk discussed: Yes ASA Class: II Anesthesia Type: General Preoperative Comments Pre-Operative Comments: Asthma. History of Hep C four years ago,
--- NOTE | 2023-07-01 07:40 | P.CONPHA_ITS ---
Pharmacy Intervention Comments: MEDICATION RECONCILIATION COMPLETED ON PATIENT USING EXTERNAL FILL HISTORY FROM PHARMACY AND LIST FROM SHUTTLE PREPARATION SUPERVISOR OFFICE. -STACY OBANDOD
--- NOTE | 2023-07-01 07:40 | HMH.PHAINT1 ---
Pharmacy Intervention Comments: MEDICATION RECONCILIATION COMPLETED ON PATIENT USING EXTERNAL FILL HISTORY FROM PHARMACY AND LIST FROM VISUAL MANAGER OFFICE. -STACY OBANDOD
[2023-07-01] MEDS: LIDOCAINE 1% W/EPI 1:100,000 20ML VIAL 20 ML (07:51)
[2023-07-01] MEDS: CEFAZOLIN SODIUM 1 GM in 0.9 % SODIUM CHLORIDE 50 ML IV (07:51)
[2023-07-01] MEDS: METHYLENE BLUE 0.5% 10ML AMPULE 50 MG IV (07:52)
--- NOTE | 2023-07-01 09:41 | P.PNANES_ITS ---
[facility] Anesthesia Record Part I Anesthesia Record I Intake, IV Amount: 1,000 Hydration: Adequate Estimated blood loss (mL): 100 Urine output (mL): 100 Blood Products used (#): none Blood Pressure: 155/78 SaO2: 95 Pulse Rate: 90 Airway Patency: Patent Respiratory Rate: 16 Temperature: 97.4 F Patient is:: Drowsy and Stable Stable to PACU at:: 09:38
[2023-07-01] MEDS: ONDANSETRON 4MG/2ML VIAL 4 MG IV ×2 (09:45→17:53)
[2023-07-01] MEDS: HYDROMORPHONE 2MG/ML SYRINGE 0.5 MG IV ×2 (09:49→09:54)
--- NOTE | 2023-07-01 10:15 | SUR.PHASEI ---
PT ALERT AND ORIENTED X3, STILL C/O LOWER ABDOMINAL CRAMPING BUT HAS IMPROVED TO 3-4. NO VAGINAL BLEEDING NOTED. IV SITE WITHOUT REDNESS OR SWELLING, INFUSING WELL. VSS. REPORT CALLED TO [facility] ON OB AND PT TAKEN TO ROOM 280 WITH AND ANOTHER FAMILY MEMBER AT SIDE.
[2023-07-01] MEDS: KETOROLAC 30MG/ML VIAL 30 MG IV ×3 (10:25→21:50)
[2023-07-01] MEDS: LACTATED RINGERS 1000ML 1,000 ML 125 ML IV ×2 (10:26→19:45)
[2023-07-01] MEDS: ACETAMINOPHEN 500MG TAB 1000 MG PO ×3 (10:26→21:50)
[2023-07-01] MEDS: HYDROMORPHONE 2MG/ML SYRINGE 1 MG IV ×2 (10:40→16:45)
--- NOTE | 2023-07-01 12:01 | EXP.OP.NOTE ---
Date of procedure: 07/01/23 Pre-op Diagnosis:: 1. Abnormal uterine bleeding 2. Heavy uterine bleeding 3. History of endometrial ablation Post-op Diagnosis:: 1. Abnormal uterine bleeding 2. Heavy uterine bleeding 3. History of endometrial ablation Procedure performed:: 1. Total vaginal hysterectomy 2. Bilateral salpingectomy 3. Cystoscopy Surgeon:: Dorinda Cline DO Vendor Analyst(s):: Adan Santana MD TRAVELING SALES REPRESENTATIVE:: Other (Harley Keller) Anesthesia: GETA Estimated blood loss (mL): 100 Operative findings:: Uterine EUA was significant for 8wk size uterus with regular borders at the fundus. Grade 3 uterine descent was appreciated. No gross adnexal masses were appreciated. Operative note:: Pt was taken back to the OR where GETA was obtained without difficulty. SCDs were placed and found to be working. The patient was placed in dorsal lithotomy position using yellowfin stirrups. The vagina was prepped and draped in the normal sterile fashion. An in and out catheter was used to drain the bladder and 20 mL of methylene blue normal saline were inserted into the bladder. A weighted speculum and Rangeley were used to visualize the cervix. Two Wilson tenaculums were used to grasp the anterior and posterior ectocervix on the right and left. Local anesthetic with epinephrine was used to inject circumferentially around the cervix. A scalpel was used to make a circumferential incision at the cervicovaginal junction. A raytec was used to bluntly dissect the paracervical fascia from the cervix off the vaginal mucosa. Metzenbaum scissors and pickups were used to enter the colpotomy posteriorly and a long weighted speculum was placed. Abdominal entry was confirmed by the presence of the ovary and omentum. The left uterosacral ligament was grasped with a charly clamp, cut, and suture ligated with 0-Vicryl. This was tagged for later incorporation to the cuff. This process was repeated on the contralateral side. The anterior vaginal tissue was further dissected off the cervix. Pickups and Metzenbaum scissors were used to make the anterior colpotomy. A Nas retractor was placed. Entry to the abdominal cavity was confirmed with the presence of omentum and the left ovary was visualized. The Enseal was used to dissect the broad ligament down the lateral aspect of the uterine body on the left side. The cardinal ligaments and uterine vessels were identified bilaterally, grasped with the Enseal, coagulated and transected. This process was repeated on the right. The uterus and cervix were noted to be enlarged and the cervix was transected off for better visualization of the uterine fundus. The utero-ovarian ligament was clamped, coagulated and transected on the left. At this time there was only a very small amount of the broad ligament and the round ligament noted to be attached on the right. The Enseal was used to take this down. The uterus was free and removed from the vagina, passed off the operative field and sent to pathology for evaluation. The right fallopian tube was grasped with an Allis. A sponge stick was placed to create a safe distance from the bowel and the Enseal was used to transect the mesosalpinx. Hemostasis noted. Fallopian tube passed off the operative field. This process was repeated on the contralateral side, fallopian tube passed off the operative field to be sent to pathology. The posterior peritoneum was fixed to the posterior vaginal cuff with a running locking stitch. 0-PDS was used to place a Greene stitch for the culdoplasty, incorporating the bilateral uterosacral ligaments. The anterior peritoneum was grasped with an Malka clamp and pursestringed closed. The vaginal cuff was then closed with 0 Vicryl in a running locking fashion. Greene culdoplasty was tied to suspend the apex of the vagina. Hemostasis was noted. Cystoscopy Cystoscopy was performed with a 70 degree cystoscope and distended with sterile water. Inspection of the bladder showed a normal-looking, blue dyed, smooth bladder mucosa with no evidence of injury, suture, puckering, or other abnormalities.? Both ureteral meatuses were visualized and were noted to be expelling urine in routine fashion.? Cystoscope was removed. Sponge, instrument and needle counts were correct x3, per nursing. The patient was awakened from general anesthesia and transferred to the PACU in stable condition. Condition: stable Disposition: floor Specimens:: Uterine body, cervix, bilateral fallopian tubes Complications:: None
[2023-07-01] MEDS: PROMETHAZINE HCL 25MG/ML 1ML VIAL 12.5 MG IV ×2 (13:21→19:44)
--- NOTE | 2023-07-01 14:20 | P.PNANES_ITS ---
[facility] Anesthesia Record Part II Anesthesia Record Part II Discharge Time: 10:15 Destination: Obstetric PACU nurse assessment reviewed?: Yes Patient Condition:: Good Anesthesia Complications:: None Swallowing reflex intact?: Yes Airway Patency: Patent Cyanosis?: No Blood Pressure: 126/82 SaO2: 94 Respiratory Rate: 18 Pulse Rate: 76 Temperature: 97.7 F Mental Status: Alert & Oriented Pain level:: 4 Nausea and/or vomitting:: None Intake, IV Amount: 0 Hydration: Adequate
--- NOTE | 2023-07-01 17:18 | PC.NURSE ---
Pt resting well. Last medicated with Dilaudid 1mg IV for what pt thinks is bladder spasms as well as some abdominal cramping. (+)BS x4 quads, normal active. Reports passing flatus, no BM yet. Voiding well and in large amounts. Ambulating independently to and from bathroom and around room. Small amt of vaginal bleeding. LR continues to infuse at 125/hr through peripheral site located in left ac. All v/s have been normal.
[2023-07-01] MEDS: PANTOPRAZOLE 40MG TABLET 40 MG PO (20:33)
[2023-07-02] MEDS: ACETAMINOPHEN 500MG TAB 1000 MG PO ×2 (02:58→10:56)
[2023-07-02] MEDS: KETOROLAC 30MG/ML VIAL 30 MG IV ×2 (02:58→10:56)
[2023-07-02 04:00] VITALS: BP 100/63; PULSE 78; RESP 18; TEMP 36.9; O2SAT 96
--- NOTE | 2023-07-02 04:13 | PC.NURSE ---
pt has rested throughout the night comfortably, pt denies pain at this time, lung sounds clear throughout, bowel sounds present, vitals stable. pt ambulated to bathroom independently throughout the night. pt denies needs at this time.
[2023-07-02] MEDS: HYDROMORPHONE 2MG/ML SYRINGE 1 MG IV (05:48)
[2023-07-02] MEDS: LACTATED RINGERS 1000ML 1,000 ML 125 ML IV (05:49)
[2023-07-02 06:33] LABS: Basophils % 0.2 % (0.1-2.0); Eosinophils # 0.1 K/mm3 (0.0-0.4); Hemoglobin 12.6 g/dL (12.2-16.2); Lymphocytes # 1.6 K/mm3 (0.7-4.5); Lymphocytes % 18.2 % (10-50); Mean Corpuscular HGB Conc 34.9 g/dL (31.8-35.4); Mean Corpuscular Hemoglobin 32.4 pg (27.0-31.2); Mean Corpuscular Volume 92.8 fl (81-99); Monocytes # 0.5 K/mm3 (0.1-1.0); Monocytes % 5.7 % (1.7-9.3); Neutrophils # 6.6 K/mm3 (1.8-7.8); Neutrophils % 74.9 % (37.0-80.0); Platelet Count 185 K/mm3 (142-424); Red Blood Count 3.88 M/mm3 (4.20-5.40); Red Cell Distribution Width 12.9 % (11.5-17.5); White Blood Count 8.8 K/mm3 (4.8-10.8)
[2023-07-02 08:50] VITALS: BP 109/67; PULSE 76; RESP 16; TEMP 36.9; O2SAT 96
--- NOTE | 2023-07-02 08:55 | EXP.DC.SUM ---
General Admission date:: 07/01/23 Discharge date: 07/02/23 HPI HPI HPI: Pebbles Mendiola is a 38-year-old -0-1-3 presenting today for a hysterectomy -History of a endometrial ablation with persistent AUB. Has almost daily heavy vaginal bleeding. -3 vaginal deliveries -History of an abnormal Pap smear we will continue Paps until at least 45 years old Hospital Course Hospital Course Hospital Course: Pebbles is POD#1 from a [facility], [place] culdoplasty, cystoscopy. Discussed abnormal findings in the bladder and reviewed urology referral. -Pt only had IV pain meds ordered overnight but did not require many dose. She is voiding, ambulating and tolerating PO. She does endorse some bladder spasms. We will screen for a UTI prior to discharge. We will dc with pyridium. UA reviewed and non suspicious for UTI- no antibiotic indicated at this time. Incentive spirometer order and will be given to pt prior to DC. We will give dose of PO pain med prior to discharge and ensure pt tolerates it well and it controls her pain. Reports she has passed flatus. Desires DC home. Doing well. All questions and concerns were addressed to patient satisfaction. follow up in one week or sooner if problems arise. Exam Data for Last 24 hours Vital signs and Labs for Last 24 Hours: Temp Pulse Resp BP Pulse Ox O2 Del Method 98.4 F 76 16 109/67 L 96 Room Air 07/02/23 08:50 07/02/23 08:50 07/02/23 08:50 07/02/23 08:50 07/02/23 08:50 07/02/23 08:50 Laboratory Results - last 24 hr 07/02/23 05:11: WBC 8.8, RBC 3.88 L, Hgb 12.6, Hct 36.0 L, MCV 92.8, MCH 32.4 H, MCHC 34.9, RDW 12.9, Plt Count 185, MPV 9.0, Neut % (Auto) 74.9, Lymph % (Auto) 18.2, [place] % (Auto) 5.7, Eos % (Auto) 1.0, Baso % (Auto) 0.2, Neut # (Auto) 6.6, Lymph # (Auto) 1.6, [place] # (Auto) 0.5, Eos # (Auto) 0.1, Baso # (Auto) 0.0 I & O for Last 24 hours: Intake & Output 06/29/23 06/30/23 07/01/23 07/02/23 23:59 23:59 23:59 23:59 Intake Total 1000 / 1000 Output Total 200 / 200 Balance 800 / 800 Constitutional Constitutional: no acute distress *Routine HEENT Exam Head: Present normocephalic Eye: Present EOMI and PERRL ENT: Present mucous membranes moist *Routine Neck Exam Neck: Present supple; Absent lymphadenopathy *Routine Respiratory Exam Respiratory: Present CTA bilaterally *Routine Cardiovascular Exam Cardiovascular: Present RRR *Routine Abdominal Exam Abdominal: Present soft and normoactive bowel sounds; Absent tenderness *Routine Extremities Exam Extremities: Absent cyanosis, clubbing or edema *Routine Skin Exam Skin: Present warm; Absent rash *Routine Neurological Exam Neurological: Present alert and oriented X3 Results Data Completed and Pending Labs on day of discharge: Labs from last 24 hours 07/02/23 05:11 WBC 8.8 RBC 3.88 L Hgb 12.6 Hct 36.0 L MCV 92.8 MCH 32.4 H MCHC 34.9 RDW 12.9 Plt Count 185 MPV 9.0 Neut % (Auto) 74.9 Lymph % (Auto) 18.2 [place] % (Auto) 5.7 Eos % (Auto) 1.0 Baso % (Auto) 0.2 Neut # (Auto) 6.6 Lymph # (Auto) 1.6 [place] # (Auto) 0.5 Eos # (Auto) 0.1 Baso # (Auto) 0.0 DS: Diagnosis Discharge Diagnosis (1) History of total vaginal hysterectomy (TVH): Status: Acute Code(s): Z90.710 - Acquired absence of both cervix and uterus Problem details: doing well. meeting all dc criteria. DC home with one week follow up (2) Abnormal cystoscopy: Status: Acute Code(s): R39.9 - Unspecified symptoms and signs involving the genitourinary system Problem details: refer to urology Meds Home Medications and Allergies Home Medications Medication Instructions Recorded Confirmed Type albuterol sulfate 90 mcg/actuation 2 puff inhalation Q6HP PRN 01/06/23 07/01/23 History aerosol inhaler (Ventolin HFA) Shortness Of Breath levocetirizine 5 mg tablet (Xyzal) 5 mg PO DAILY Allergy Symptoms 05/09/23 07/01/23 History omeprazole magnesium 20 mg 20 mg PO DAILY Acid Reflux 05/21/23 07/01/23 History tablet,delayed release (Prilosec OTC) acetaminophen 500 mg tablet 500 mg PO Q6H PRN fever #30 tabs 07/02/23 Rx ibuprofen 800 mg tablet 800 mg PO Q8H PRN pain #60 tabs 07/02/23 Rx oxycodone 5 mg tablet 5 mg PO Q8H PRN pain #5 tabs 07/02/23 Rx phenazopyridine 100 mg tablet 100 mg PO TID #10 tabs 07/02/23 Rx (Pyridium) sennosides 8.6 mg tablet (Senna 8.6 mg PO BIDP PRN Constipation 07/02/23 Rx Lax) #60 tabs simethicone 125 mg tablet 125 mg PO DAILY PRN abdominal 07/02/23 Rx distention #60 tabs New Prescriptions to Start Prescriptions: Dorinda Carney ibuprofen Dorinda Cline oxycodone Dorinda Cline phenazopyridine [Pyridium] Dorinda Cline sennosides [Senna Lax] Dorinda Cline simethiconDorinda Godinez Allergies Allergy/AdvReac Type Severity Reaction Status Date / Time propoxyphene Allergy Unknown Verified 07/01/23 06:14 [[facility] aspirin Allergy Verified 07/01/23 06:14 Discharge Plan Disposition Patient Disposition: Home, Self-Care Condition: Good Follow up Plan Follow up with: Dorinda Cline DO [Staff Physician] - 07/08/23 1:15 pm Prescriptions/Medication Reconciliation: New sennosides [Senna Lax] 8.6 mg Tablet 8.6 mg PO BIDP PRN (Reason: Constipation) Qty: 60 2RF ibuprofen 800 mg tablet 800 mg PO Q8H PRN (Reason: pain) Qty: 60 2RF acetaminophen 500 mg tablet 500 mg PO Q6H PRN (Reason: fever) Qty: 30 3RF simethicone 125 mg tablet 125 mg PO DAILY PRN (Reason: abdominal distention) Qty: 60 2RF oxycodone 5 mg tablet 5 mg PO Q8H PRN (Reason: pain) Qty: 5 0RF phenazopyridine [Pyridium] 100 mg tablet 100 mg PO TID Qty: 10 0RF Continued levocetirizine [Xyzal] 5 mg tablet 5 mg PO DAILY albuterol sulfate [Ventolin HFA] 90 mcg/actuation HFA aerosol inhaler 2 puff inhalation Q6HP PRN (Reason: Shortness Of Breath) omeprazole magnesium [Prilosec OTC] 20 mg tablet,delayed release (DR/EC) 20 mg PO DAILY Problem Reconciliation Problems Reviewed?: Yes Patient Discharge Instructions ACTIVITY: Continue current activity DIET: regular diet Additional Instructions: Post op plan You had a total vaginal hysterectomy and bilateral salpingectomy. This means that your uterus, cervix, and fallopian tubes were removed. The top of your vagina is closed with dissolvable sutures. Removing your fallopian tubes decreases your lifetime risk of ovarian cancer. You will follow-up in office for a postop visit at 1 weeks and at 6 weeks. At your 6-week postop appointment you will have a pelvic exam to ensure your cuff is healing well. We did notice some cellular changes on the inside of your bladder and have placed a urology referral for this to be evaluated Secondary to having bladder spasms on the day of discharge we checked a UA and it was negative for an urinary tract infection. We will send this off for culture to further screen for UTI. Below you will see a medication that I have sent home with you to help with bladder spasms. Activity: - No lifting more than 10 lbs for 6 weeks. - No driving while you are taking narcotic pain medication. Medications: - Ibuprofen (a nonsteroidal anti-inflammatory) for pain. Please take the ibuprofen scheduled for the first 2-3 days as this will help control your pain - Roxycodone (a narcotic pain medication) use the narcotic pain medication for breakthrough or severe pain. You will want to stop the narcotic pain medication first. Narcotic pain medication can be habit forming so please only use this medication if you need it. - Senna (a stool softener) use this medication for constipation as needed. Narcotics can increase your risk for constipation - Simethicone: a gas medication for bloating and gas pain you may experience in the next 1-2 weeks. - Pyridium: This is a medication that you will take for the next 3 days and it will help with bladder spasms. This will make your urine turn orange please do not be alarmed. Please call the office or return to the ER if you have any of the followin. bleeding more than 1 pad an hour for 2 hours 2. pain that does not respond to your narcotic pain medication 3. dizziness or lightheadedness such that you lose consciousness Questions or concerns: It is my privilege to be your doctor. Please let me know if you have other questions or concerns. Dorinda Cline DO [facility] Specialist [place], [place] [address] Patient Instructions: DI for Vaginal Hysterectomy Providers Primary Care Provider: Briseida Peguero Admit Provider: Dorinda Cline Attending Provider: Dorinda Cline
[2023-07-02] MEDS: OXYCODONE 5MG IMMEDIATE RELEASE TABLET 5 MG PO (09:01)
[2023-07-02 09:46] LABS: Microscopic, Urine URINE MICROSCOPIC (MICROSCOPIC)
[2023-07-02 09:48] LABS: Appearance,Urine CLEAR (Clear); Bilirubin,Urine Negative (Negative); Blood, Urine 1+ (Negative); Color,Urine YELLOW (Yellow); Glucose,Urine (UA) Negative (Negative); Ketones,Urine Negative (Negative); Leukocyte Esterase,Urine Negative (Negative); Nitrate,Urine Negative (Negative); Protein,Urine Negative (Negative); Urobilinogen,Urine 0.2 EU/dl (0.2)
[2023-07-02 10:35] LABS: Squamous Epithelial Cell,Urine Occasional #/hpf (0-5)
--- NOTE | 2023-07-02 12:08 | EXP.HP ---
History of Present Illness *Admission Date: 07/01/23 *Reason for visit:: Hysterectomy *History of present illness: Pebbles Mendiola is a 38-year-old -0-1-3 presenting today for a hysterectomy -History of a endometrial ablation with persistent AUB. Has almost daily heavy vaginal bleeding. -3 vaginal deliveries -History of an abnormal Pap smear we will continue Paps until at least 45 years old [facility] Disclaimer: The information contained in this section may have been updated after the patient was seen, as this information can be updated by other users. 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 Asthma Endometriosis Gastroenteritis Headache Hepatitis C infection Unknown details Interatrial cardiac shunt Migraine PCOS (polycystic ovarian syndrome) Pelvic pain in female Stomach ulcer Surgical History H/O right wrist surgery H/O tubal ligation History of cholecystectomy History of endometrial ablation Family History Other Family history of cancer Family history of diabetes mellitus type II Family history of hypertension Family history of irritable bowel syndrome Social History (Updated 07/01/23 @ 12:06 by Arelis Whitehead RN) Smoking Status: Current every day smoker tobacco type: cigarettes alcohol intake: current substance use type: former substance user and heroin current occupational status: employed Travel in the last 8 weeks: None Review of Systems Review of Systems Review of systems (narrative): Review of Systems Constitutional: Denies fever, chills, and sweats Eyes: Denies vision change/ pain Respiratory: Denies cough and shortness of breath Cardiovascular: Denies chest pain and lightheadedness Gastrointestinal: Denies abdominal pain. Denies nausea, vomiting. Genitourinary: Denies dysuria and incontinence Musculoskeletal: Denies shoulder pain and back pain Neurological: Denies change in speech or headaches Meds Home Medications and Allergies Home Medications Medication Instructions Recorded Confirmed Type albuterol sulfate 90 mcg/actuation 2 puff inhalation Q6HP PRN 01/06/23 07/01/23 History aerosol inhaler (Ventolin HFA) Shortness Of Breath levocetirizine 5 mg tablet (Xyzal) 5 mg PO DAILY Allergy Symptoms 05/09/23 07/01/23 History omeprazole magnesium 20 mg 20 mg PO DAILY Acid Reflux 05/21/23 07/01/23 History tablet,delayed release (Prilosec OTC) acetaminophen 500 mg tablet 500 mg PO Q6H PRN fever #30 tabs 07/02/23 Rx ibuprofen 800 mg tablet 800 mg PO Q8H PRN pain #60 tabs 07/02/23 Rx oxycodone 5 mg tablet 5 mg PO Q8H PRN pain #5 tabs 07/02/23 Rx phenazopyridine 100 mg tablet 100 mg PO TID #10 tabs 07/02/23 Rx (Pyridium) sennosides 8.6 mg tablet (Senna 8.6 mg PO BIDP PRN Constipation 07/02/23 Rx Lax) #60 tabs simethicone 125 mg tablet 125 mg PO DAILY PRN abdominal 07/02/23 Rx distention #60 tabs New Prescriptions to Start Prescriptions: acetaminophen Son,Dorinda ibuprofen Son,Dorinda oxycodone Son,Dorinda phenazopyridine [Pyridium] Son,Dorinda sennosides [Senna Lax] Son,Dorinda simethicone Dorinda Cline Allergies Allergy/AdvReac Type Severity Reaction Status Date / Time propoxyphene Allergy Unknown Verified 07/01/23 06:14 [From [facility] 100] aspirin Allergy Verified 07/01/23 06:14 Exam Data for Last 24 hours Vital signs and Labs for Last 24 Hours: Temp Pulse Resp BP Pulse Ox O2 Del Method 98.4 F 76 16 109/67 L 96 Room Air 07/02/23 08:50 07/02/23 08:50 07/02/23 08:50 07/02/23 08:50 07/02/23 08:50 07/02/23 11:35 Laboratory Results - last 24 hr 07/02/23 05:11: WBC 8.8, RBC 3.88 L, Hgb 12.6, Hct 36.0 L, MCV 92.8, MCH 32.4 H, MCHC 34.9, RDW 12.9, Plt Count 185, MPV 9.0, Neut % (Auto) 74.9, Lymph % (Auto) 18.2, [place] % (Auto) 5.7, Eos % (Auto) 1.0, Baso % (Auto) 0.2, Neut # (Auto) 6.6, Lymph # (Auto) 1.6, [place] # (Auto) 0.5, Eos # (Auto) 0.1, Baso # (Auto) 0.0 07/02/23 09:35: Urine Color Yellow, Urine Appearance Clear, Urine pH 7.0, Ur Specific [place] 1.010, Urine Protein Negative, Urine Glucose (UA) Negative, Urine Ketones Negative, Urine Blood 1+, Urine Nitrate Negative, Urine Bilirubin Negative, Urine Urobilinogen 0.2, Ur Leukocyte Esterase Negative, Urine RBC None, Urine WBC 3-5, Ur Squamous Epith Cells Occasional, Urine Bacteria None I & O for Last 24 hours: Intake & Output 06/29/23 06/30/23 07/01/23 07/02/23 23:59 23:59 23:59 23:59 Intake Total 1000 / 1000 Output Total 200 / 200 Balance 800 / 800 Constitutional Constitutional: no acute distress *Routine HEENT Exam Head: Present normocephalic Eye: Present EOMI and PERRL ENT: Present mucous membranes moist *Routine Neck Exam Neck: Present supple; Absent lymphadenopathy *Routine Respiratory Exam Respiratory: Present CTA bilaterally *Routine Cardiovascular Exam Cardiovascular: Present RRR *Routine Abdominal Exam Abdominal: Present soft and normoactive bowel sounds; Absent tenderness *Routine Rectal Exam Rectal:: deferred *Routine Genitalia Exam Genitalia:: deferred *Routine Extremities Exam Extremities: Absent cyanosis, clubbing or edema *Routine Skin Exam Skin: Present warm; Absent rash *Routine Neurological Exam Neurological: Present alert and oriented X3 Assessment and Plan *Assessment and plan (1) Abnormal uterine bleeding (AUB): Status: Acute Category: Medical Code(s): N93.9 - Abnormal uterine and vaginal bleeding, unspecified (2) Menorrhagia with regular cycle: Status: Acute Category: Medical Code(s): N92.0 - Excessive and frequent menstruation with regular cycle (3) Dyspareunia: Status: Acute Category: Medical (4) Asthma: Status: Acute Qualifiers: Asthma severity: mild Asthma persistence: intermittent Asthma complication type: unspecified Qualified Code(s): J45.20 - Mild intermittent asthma, uncomplicated Category: Medical Code(s): J45.909 - Unspecified asthma, uncomplicated (5) Migraine: Status: Chronic Qualifiers: Intractability: not intractable Migraine type: unspecified Status migrainosus presence: without status migrainosus Qualified Code(s): G43.909 - Migraine, unspecified, not intractable, without status migrainosus Category: Medical Code(s): G43.909 - Migraine, unspecified, not intractable, without status migrainosus (6) Decreased libido: Status: Acute Category: Medical Code(s): R68.82 - Decreased libido Plan Plan for TVH, removal of any remaining fallopian tube remnants, [place] culdoplasty, cystoscopy. Possible DARRICK -TVUS reviewed form 01/22/22: Transvaginal sonographic images of the pelvis were obtained. The uterus measures 9.2 x 4.0 x 4.9 cm. The endometrium measures 10mm, which is within normal limits. No uterine mass is identified. RO: 3.1 x 2.7 x 2.0 cm and LO: 2.9 by 2.8 x 1.7 cm. Normal blood flow seen to the ovaries. There are multiple follicles in both ovaries consistent with polycystic ovarian syndrome. There is a small amount of free fluid in the pelvis which may be physiologic or reactive. -The patient is requesting definitive surgical management with hysterectomy. She declines medical intervention. Reviewed the risks of major gynecologic surgery with the pt to include bleeding, infection and risk of damage to surrounding structures. I assessed the patient's understanding from her last visit and she was able to review most of the risk that I reviewed with her at the last visit. She thoroughly understands the risk of hysterectomy. Discussed risks of bleeding and pt consented to blood transfusion if deemed medically necessary. Discussed risks of infection, states she has no allergies to antibiotics and we will use ancef for infection ppx. Discussed risks of injury to the surrounding structures to include her bowel, bladder, ureters, and neurovascular bundles. Discussed that this could require further surgeries and prolong recovery and hospital stay. Discussed risk of fistula formation. Discussed that she would stay overnight to ensure adequate pain control and that she met all postop milestones and pt agreed. She voiced understanding of all risks. I ensured she understood with teachback method of risks. Pt desires to proceed with TVH, bilateral salpingectomy, [place] culdoplasty, and cystoscopy. possible DARRICK. -Pap smear: 06/10/2023: Negative for intraepithelial lesion or malignancy. Transformation zone present. Negative HPV. -Endometrial biopsy: 02/08/2022: Negative for hyperplasia, atypia, or malignancy -CBC, test, type and screen ordered. -Infection prophylactic antibiotics ordered: Ancef 2g -Postoperative course reviewed with the patient and explained that she should anticipate staying in the hospital 1-2 days until meeting all DC criteria, and pain is well controlled.
--- NOTE | 2023-07-02 12:34 | PC.NURSE ---
1225 Discharge teaching completed at this time, questions encouraged and answered.
== END 2023-07-02 13:25 | disposition home or self-care (01) ==
LOC: OB 07-02 01:29
PROVIDERS: Admitting Provider Obstetrics & Gynecology; PCP Physician Assistant; Visit Provider Obstetrics & Gynecology
PROC: (CPT 58262; principal; 2023-07-01 07:30)
DX: N93.9 Abnormal uterine and vaginal bleeding, unspecified (principal); F17.210 Nicotine dependence, cigarettes, uncomplicated; J45.20 Mild intermittent asthma, uncomplicated; G43.909 Migraine, unspecified, not intractable, without status migrainosus
CPT/HCPCS: 58262; 36415; 81001; 85025; 86850; 94761; 96374; J3490; G0283; G0378; J2405

== ENCOUNTER 2023-09-08 14:45 | Outpatient (CLI) | payer OTHER, MEDICAID, SELFPAY ==
[2023-09-08 17:58] LABS: Coronavirus 19, PCR Not Detected (NotDetected); Influenza A, PCR Not Detected (NotDetected); Influenza B, PCR Not Detected (NotDetected)
== END 2023-09-08 23:59 | disposition home or self-care (01) ==
LOC: LAB.DROPOF 09-10 14:45
PROVIDERS: PCP Student in an Organized Health Care Education/Training Program; Visit Provider Student in an Organized Health Care Education/Training Program
DX: R05.9 Cough, unspecified (principal); R09.89 Other specified symptoms and signs involving the circulatory and respiratory systems; R50.9 Fever, unspecified
CPT/HCPCS: 87636

== ENCOUNTER 2023-09-18 14:56 | Outpatient (CLI) | payer OTHER, MEDICAID, SELFPAY | END 2023-09-18 23:59 | disposition home or self-care (01) | LOC: LAB.DROPOF 09-19 14:57 | PROVIDERS: PCP Student in an Organized Health Care Education/Training Program; Visit Provider Student in an Organized Health Care Education/Training Program | DX: J02.9 Acute pharyngitis, unspecified (principal); R50.9 Fever, unspecified; R05.9 Cough, unspecified; R09.89 Other specified symptoms and signs involving the circulatory and respiratory systems; R11.0 Nausea; R19.7 Diarrhea, unspecified; Z20.822 Contact with and (suspected) exposure to COVID-19 | CPT/HCPCS: 87070; 87635 ==

== ENCOUNTER 2023-10-19 15:34 | Emergency (ER) | payer OTHER, SELFPAY ==
[2023-10-19 17:00] VITALS: BP 135/84; PULSE 80; RESP 18; TEMP 36.6; O2SAT 100; BMI 27.6
--- NOTE | 2023-10-19 17:21 | XR_ITS ---
PROCEDURE INFORMATION: Exam: XR Sacrum and Coccyx, 2 or More Views Exam date and time: 10/19/2023 5:23 PM Age: 38 years old Clinical indication: Pain in coccyx area; Additional info: PT fell and hurt tail bone TECHNIQUE: Imaging protocol: XR of the sacrum and coccyx, 2 or more views. COMPARISON: CT ABDOMEN PELVIS W CON 06/05/2019 4:22 AM FINDINGS: Bones/joints: Transitional lumbosacral anatomy. No acute fracture or malalignment Soft tissues: Normal. IMPRESSION: No acute findings.
[2023-10-19] MEDS: ACETAMINOPHEN 325MG TAB 650 MG PO (17:25)
--- NOTE | 2023-10-19 17:52 | ED_ITS ---
Discharge Plan Disposition Patient Disposition: Home, Self-Care Condition: Good Prescriptions Prescriptions: No Action levocetirizine [Xyzal] 5 mg tablet 5 mg PO DAILY oxybutynin chloride 10 mg tablet extended release 24hr 10 mg PO DAILY omeprazole magnesium [Prilosec OTC] 20 mg tablet,delayed release (DR/EC) 20 mg PO DAILY albuterol sulfate [Ventolin HFA] 90 mcg/actuation HFA aerosol inhaler 2 puff inhalation Q6HP PRN (Reason: Shortness Of Breath) Qty: 8.5 2RF Referrals Follow up/Referrals: Briseida Peguero PA [Primary Care Provider] - See instructions Activity Restrictions/Add. Instructions Additional Instructions/Restrictions: tylenol or motrin as needed follow up with pcp if symptoms worsen or no improvement return Clinical Impressions Clinical Impression: Coccygeal pain, acute Instructions Patient Instructions: DI for Low Back Pain Discharge ED Provider: Henrique ([facility] [place] HPI General Stated complaint: AO 10/18/23 injury to tail bone Mode of Arrival: Ambulatory Source of Information: Patient Limitations: No Limitations Time Seen by Provider: 10/19/23 17:52 Description of Symptoms (Recalled from Triage Doc. by RN): Pt was walking [place] [employer] and fell and hurt tail bone. HEENT Symptoms (Recalled from RN notes): No Resp Symptoms (Recalled from RN notes): No Skin Symptoms (Recalled from RN notes): No MS Symptoms (Recalled from RN notes): Yes Functional Status (Recalled from RN notes): n/a History of Present Illness Provider Complaint: 38 yr old female presents for pain in the tail bone. pt states she fell and hit her tail bone on a rock. no issues with bowels or bladder Related Data Home Medications Medication Instructions Recorded Confirmed levocetirizine 5 mg tablet (Xyzal) 5 mg PO DAILY Allergy Symptoms 05/09/23 10/19/23 omeprazole magnesium 20 mg 20 mg PO DAILY Acid Reflux 05/21/23 10/19/23 tablet,delayed release (Prilosec OTC) oxybutynin chloride 10 mg 10 mg PO DAILY 08/07/23 10/19/23 tablet,extended release 24 hr Previous Rx's Medication Instructions Recorded albuterol sulfate 90 mcg/actuation 2 puff inhalation Q6HP PRN 04/08/24 aerosol inhaler (Ventolin HFA) Shortness Of Breath #8.5 grams Allergies Allergy/AdvReac Type Severity Reaction Status Date / Time propoxyphene Allergy Unknown Verified 10/19/23 17:19 [From [facility] 100] aspirin Allergy Verified 10/19/23 17:19 Worker's Comp Is this a Worker's Comp case?: No PFS PFS Disclaimer: The information contained in this section may have been updated after the patient was seen, as this information can be updated by other users. 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 , [employer]) Interatrial cardiac shunt Abnormal uterine bleeding (AUB) Dyspnea Atypical chest pain Cardiomyopathy Abnormal echocardiogram Transformed migraine History of endocarditis History of intravenous drug abuse Sexual dysfunction in female Asthma PCOS (polycystic ovarian syndrome) Endometriosis Migraine Stomach ulcer Pelvic pain in female Menorrhagia with regular cycle Hepatitis C infection Gastroenteritis Headache Migraine Surgical History , [employer]) History of total vaginal hysterectomy (TVH) History of endometrial ablation H/O right wrist surgery History of cholecystectomy H/O tubal ligation Family History , [employer]) Family history of cancer Family history of hypertension Family history of diabetes mellitus type II Family history of irritable bowel syndrome Social History , [employer]) Smoking Status: Current every day smoker tobacco type: cigarettes alcohol intake: current substance use type: former substance user and heroin current occupational status: employed Travel in the last 8 weeks: None ROS Obtained: Yes All systems reviewed & no additional complaints except as documented Constitutional Constitutional: Reports system reviewed and no additional complaints, except as documented Eyes Eyes: Reports system reviewed and no additional complaints, except as documented ENT Ears, Nose, Mouth, and Throat: Reports system reviewed and no additional complaints, except as documented Cardiovascular Cardiovascular: Reports system reviewed and no additional complaints, except as documented Respiratory Respiratory: Reports system reviewed and no additional complaints, except as documented Gastrointestinal Gastrointestingal: Reports system reviewed and no additional complaints, except as documented Musculoskeletal Musculoskeletal: Reports system reviewed and no additional complaints, except as documented, Reports as per HPI, Reports arthralgias and Reports other (pain ) Integumentary/Breasts Skin/Breast: Reports system reviewed and no additional complaints, except as documented Endocrine Endocrine: Reports system reviewed and no additional complaints, except as documented Allergic/Immunologic Allergic/Immunologic: Reports system reviewed and no additional complaints, except as documented Physical Exam General General appearance: alert and in no apparent distress Eye Eye exam: Present normal appearance ENT ENT exam: Present normal exam, normal oropharynx and TM's normal bilaterally Respiratory Respiratory exam: Present normal lung sounds bilaterally Cardiovascular Cardiovascular exam: Present regular rate and normal rhythm Back Exam Back 1 view image: 2 1. tender Neurological Exam Neurological exam: Present alert and oriented X3 Psychiatric Psychiatric exam: Present normal affect Skin Skin exam: Present warm and dry Medical Decision Making Medical Records Medical records reviewed: Yes I reviewed the patient's medical records. Sagar Inquiry Pt receiving controlled substance: No Sagar was queried for this patient: No Vital Signs: 10/19/23 17:00 Temperature 97.8 F Temperature Source Oral Pulse Rate [Right Radial] 80 Respiratory Rate 18 Blood Pressure [Right Arm] 135/84 Blood Pressure Mean [Right Arm] 101 Blood Pressure Source [Right Arm] Automatic Cuff Blood Pressure Position [Right Arm] Sitting 02 Sat by Pulse Oximetry 100 Oxygen Delivery Method Room Air Lab Data Lab results reviewed: Yes I reviewed the patient's lab results. Orders (Tests/Meds): ED MEDICATIONS Generic Name Dose Route Start Last Admin Trade Name Freq PRN Reason Stop Dose Admin Acetaminophen 650 mg 10/19/23 17:21 10/19/23 17:25 Acetaminophen 325mg Tab PO 10/19/23 17:22 650 mg ONCE ONE Administration ORDERS Category Date Time Status Coccyx XR 2 view [XR coccyx 2V] Stat Exams 10/19/23 17:21 Taken
[2023-10-19 18:26] VITALS: BP 135/84; PULSE 80; RESP 18; TEMP 36.6; O2SAT 100
== END 2023-10-19 18:30 | disposition home or self-care (01) ==
PROVIDERS: Emergency Provider Nurse Practitioner Family; PCP Physician Assistant
DX: M53.3 Sacrococcygeal disorders, not elsewhere classified (principal); W19.XXXA Unspecified fall, initial encounter; F17.210 Nicotine dependence, cigarettes, uncomplicated
CPT/HCPCS: 72220; 99212; 99214; G0463

== ENCOUNTER 2023-10-22 16:33 | Outpatient (CLI) | payer OTHER, SELFPAY | END 2023-10-22 23:59 | disposition home or self-care (01) | LOC: LAB.DROPOF 16:33 | PROVIDERS: PCP Obstetrics & Gynecology; Visit Provider Obstetrics & Gynecology | DX: N39.0 Urinary tract infection, site not specified (principal); B96.1 Klebsiella pneumoniae [K. pneumoniae] as the cause of diseases classified elsewhere | CPT/HCPCS: 87086; 87088; 87186 ==

== ENCOUNTER 2023-11-18 16:30 | Outpatient (CLI) | payer OTHER, SELFPAY ==
[2023-11-18 17:01] LABS: Basophils # 0.1 K/mm3 (0-0.2); Basophils % 0.8 % (0.1-2.0); Eosinophils # 0.7 K/mm3 (0.0-0.4); Eosinophils % 8.3 % (0.1-12.0); Hematocrit 43.5 % (37.0-47.0); Hemoglobin 15.1 g/dL (12.2-16.2); Lymphocytes # 1.7 K/mm3 (0.7-4.5); Lymphocytes % 20.9 % (10-50); Mean Corpuscular HGB Conc 34.6 g/dL (31.8-35.4); Mean Corpuscular Hemoglobin 33.2 pg (27.0-31.2); Mean Platelet Volume 8.3 fl (7.4-10.4); Monocytes # 0.4 K/mm3 (0.1-1.0); Monocytes % 4.4 % (1.7-9.3); Neutrophils # 5.4 K/mm3 (1.8-7.8); Neutrophils % 65.6 % (37.0-80.0); Platelet Count 218 K/mm3 (142-424); Red Blood Count 4.53 M/mm3 (4.20-5.40); Red Cell Distribution Width 13.4 % (11.5-17.5); White Blood Count 8.2 K/mm3 (4.8-10.8)
[2023-11-18 17:51] LABS: Alanine Aminotransferase 33 U/L (12-78); Albumin Level 4.5 g/dl (3.5-5.0); Albumin/Globulin Ratio 1.2 (1.1-1.8); Alkaline Phosphatase 56 U/L (38-126); Anion Gap 13.1 mEq/L (5-15); Aspartate Amino Transferase 27 U/L (14-36); Bilirubin,Total 0.4 mg/dl (0.2-1.3); Blood Urea Nitrogen 10 mg/dl (7-17); Calcium 9.4 mg/dl (8.4-10.2); Carbon Dioxide 22 mmol/L (22.0-30.0); Chloride 108 mmol/L (98-107); Chol/HDL Ratio 3.8 (1-3.5); Cholesterol 195 mg/dl (140-200); Estimated Glomerular Filt Rate 70 ml/min (>60); GFR (African American) 85 ML/MIN (>60); Globulin 3.8 g/dL (1.3-3.2); Glucose 83 mg/dl (74-100); HDL Cholesterol 52 mg/dl (40-60); Potassium 4.1 mmoL/L (3.5-5.1); Sodium 139 mmol/L (136-145); Total Protein,Serum 8.3 g/dl (6.3-8.2); Triglycerides 228 mg/dl (30-150); VLDL Cholesterol 46 mg/dL (0-40)
[2023-11-18 18:02] LABS: Direct LDL Cholesterol 96.94 mg/dL (100-129)
[2023-11-18 18:15] LABS: 25-OH Vitamin D, Total 39.6 ng/mL (30-100)
[2023-11-18 18:21] LABS: Thyroid Stimulating Hormone 1.45 uIU/mL (0.465-4.68)
[2023-11-18 19:19] LABS: Hemoglobin A1C 5.6 % (4.0-6.0)
[2023-11-18 19:35] LABS: Ferritin 20.2 ng/ml (6.24-137)
[2023-11-19 13:05] LABS: HIV (1&2) Antibody Rapid NON REACTIVE
[2023-11-21 13:18] LABS: HCV Ab Reactive (Non Reactive)
== END 2023-11-18 23:59 | disposition home or self-care (01) ==
LOC: LAB 16:32
PROVIDERS: PCP Physician Assistant; Visit Provider Student in an Organized Health Care Education/Training Program
DX: R05.9 Cough, unspecified (principal); R42 Dizziness and giddiness; R73.9 Hyperglycemia, unspecified; Z11.59 Encounter for screening for other viral diseases; Z11.4 Encounter for screening for human immunodeficiency virus [HIV]
CPT/HCPCS: 36415; 80050; 80053; 80061; 82306; 82728; 83036; 84443; 85025

== ENCOUNTER 2023-12-02 09:56 | Outpatient (CLI) | payer OTHER, SELFPAY ==
[2023-12-04 08:53] LABS: Hep B Core Ab, Total Negative (Negative); Hep B Surface Ab, Qual Reactive (.)
== END 2023-12-02 23:59 | disposition home or self-care (01) ==
LOC: LAB 12-05 09:57
PROVIDERS: PCP Nurse Practitioner Family; Visit Provider Nurse Practitioner Family
DX: R76.8 Other specified abnormal immunological findings in serum (principal)
CPT/HCPCS: 86704; 86706

== ENCOUNTER 2023-12-02 10:38 | Outpatient (CLI) | payer OTHER, SELFPAY ==
--- NOTE | 2023-12-02 10:39 | US_ITS ---
FINAL REPORT CLINICAL HISTORY: HEP C CHRONIC X 5 YRS COMPARISON: None FINDINGS: HEPATIC ULTRASOUND Multiple transverse and longitudinal scans were performed of the right upper quadrant of the abdomen. FINDINGS: Liver parenchyma appears normal. Liver is normal in size. No focal lesion is present. No intrahepatic duct dilatation is identified. No evidence of common bile duct dilatation is identified. Doppler exam shows normal directional flow within patent hepatic and portal veins. No gallstones are seen. No evidence of perihepatic fluid is identified. IMPRESSION: Unremarkable hepatic ultrasound HEPATIC ULTRASOUND ELASTOGRAPHY EQUIPMENT: [place] EPIC-5, C5-1 probe FINDINGS: The median liver stiffness value is 1.18 m/s (4.14 KPa) consistent with no-mild fibrosis. The IQR/med is 3%. IMPRESSION: Measurements suggestive of no-mild fibrosis. High probability of being normal. Note: In the setting of elevated 1iver function tests, post prandial state, and CHF the degree of liver fibrosis may be overestimated Liver Stiffness Value Recommendation (per SRU): <= 5 kPa (1.3 m/sec) High probability of being normal < 9 kPa (1.7 m/sec) In the absence of other known clinical signs, rules out cACLD. If there are known clinical signs, may need further test for confirmation 9-13 kPa (1.7-2.1 m/sec) Suggestive of cACLD but need further test for confirmation > 13 kPa (2.1 m/sec) Rules in cACLD > 17 kPa (2.4 m/sec) Suggestive of CSPH Note.-ARFI = acoustic radiation force impulse, cACLD = compensated advanced chronic liver disease, CSPH = clinically significant portal hypertension, NAFLD = non-alcoholic fatty liver disease. Reviewed, Interpreted and Dictated by Peter Arroyo MD Transcribed by Griselda Myrick Authenticated and [facility]
[2023-12-04 08:53] LABS: Hep A Ab, Total Positive (Negative); Hep B Core Ab, Total Negative (Negative); Hep B Surface Ab, Qual Reactive (.); Hepatitis B Surface Antigen Negative (Negative)
== END 2023-12-02 23:59 | disposition home or self-care (01) ==
LOC: RAD 10:39
PROVIDERS: PCP Physician Assistant; Visit Provider Nurse Practitioner Family
DX: B19.20 Unspecified viral hepatitis C without hepatic coma (principal); R76.8 Other specified abnormal immunological findings in serum
CPT/HCPCS: 76981; 86704; 86706; 86708; 87340

== ENCOUNTER 2023-12-12 11:04 | Outpatient (CLI) | payer OTHER, SELFPAY ==
[2023-12-13 12:12] LABS: Progesterone 15.8 ng/mL (.); Testosterone,Total 27 ng/dL (8-60)
== END 2023-12-12 23:59 | disposition home or self-care (01) ==
PROVIDERS: PCP Physician Assistant; Visit Provider Obstetrics & Gynecology
DX: Z01.419 Encounter for gynecological examination (general) (routine) without abnormal findings (principal)
CPT/HCPCS: 36415; 82670; 84144; 84403

== ENCOUNTER 2024-04-12 14:21 | Outpatient (CLI) | payer OTHER, SELFPAY ==
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
== END 2024-04-12 23:59 | disposition home or self-care (01) ==
LOC: RAD 14:22
PROVIDERS: PCP Student in an Organized Health Care Education/Training Program; Visit Provider Student in an Organized Health Care Education/Training Program
DX: J02.9 Acute pharyngitis, unspecified (principal); S61.250A Open bite of right index finger without damage to nail, initial encounter
CPT/HCPCS: 73140; 87070; 87635

== ENCOUNTER 2024-05-30 15:31 | Emergency (ER) | payer OTHER, SELFPAY ==
[2024-05-30 15:34] VITALS: BP 154/102; PULSE 94; RESP 18; TEMP 36.6; O2SAT 98; BMI 27.4
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
--- NOTE | 2024-05-30 15:54 | CT_ITS ---
PROCEDURE INFORMATION: Exam: CT Head Without Contrast Exam date and time: 05/30/2024 4:44 PM Age: 39 years old Clinical indication: Injury or trauma; Additional info: Trauma, critical injury suspected TECHNIQUE: Imaging protocol: Computed tomography of the head without contrast. Radiation optimization: All CT scans at this facility use at least one of these dose optimization techniques: automated exposure control; mA and/or kV adjustment per patient size (includes targeted exams where dose is matched to clinical indication); or iterative reconstruction. COMPARISON: No relevant prior studies available. FINDINGS: Brain: Normal. No hemorrhage. Unremarkable white matter. No mass effect. Cerebral ventricles: No ventriculomegaly. Paranasal sinuses: Nonspecific fluid within the right maxillary sinus. Scattered paranasal sinus mucosal disease. Mastoid air cells: Visualized mastoid air cells are well aerated. Bones: Unremarkable. No acute fracture. Soft tissues: Left facial and scalp soft tissue swelling. IMPRESSION: No acute intracranial abnormality.
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
[2024-05-30] MEDS: ONDANSETRON 4MG/2ML VIAL 4 MG IV ×2 (16:04→17:31)
[2024-05-30] MEDS: MORPHINE 4MG/ML SYRINGE 4 MG IV (16:05)
[2024-05-30] MEDS: LACTATED RINGERS 1000ML 1,000 ML 999 ML IV (16:05)
[2024-05-30 16:06] LABS: Basophils # 0.1 K/mm3 (0-0.2); Basophils % 0.5 % (0.1-2.0); Eosinophils # 0.1 K/mm3 (0.0-0.4); Eosinophils % 0.5 % (0.1-12.0); Hematocrit 41.3 % (37.0-47.0); Hemoglobin 14.8 g/dL (12.2-16.2); Lymphocytes % 18.1 % (10-50); Mean Corpuscular HGB Conc 35.8 g/dL (31.8-35.4); Mean Corpuscular Hemoglobin 32.6 pg (27.0-31.2); Monocytes % 9.2 % (1.7-9.3); Neutrophils # 7.8 K/mm3 (1.8-7.8); Neutrophils % 71.4 % (37.0-80.0); Platelet Count 266 K/mm3 (142-424); Red Blood Count 4.54 M/mm3 (4.20-5.40); Red Cell Distribution Width 12.1 % (11.5-17.5); White Blood Count 10.9 K/mm3 (4.8-10.8)
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
[2024-05-30 16:15] VITALS: BP 151/85; PULSE 90; O2SAT 98
[2024-05-30 16:24] LABS: INR 0.92 (0.9-1.1); Prothrombin Time 10.2 seconds (9.2-12.1)
[2024-05-30 16:30] VITALS: BP 130/87; PULSE 89; O2SAT 98
[2024-05-30 16:39] LABS: HCG Qualitative, Serum Negative (Negative)
[2024-05-30 16:41] LABS: Alanine Aminotransferase 26 U/L (12-78); Albumin Level 4.9 g/dl (3.5-5.0); Albumin/Globulin Ratio 1.3 (1.1-1.8); Alkaline Phosphatase 75 U/L (38-126); Anion Gap 11.9 mEq/L (5-15); Aspartate Amino Transferase 35 U/L (14-36); Bilirubin,Total 0.8 mg/dl (0.2-1.3); Blood Urea Nitrogen 8 mg/dl (7-17); Calcium 10.7 mg/dl (8.4-10.2); Carbon Dioxide 29 mmol/L (22.0-30.0); Chloride 101 mmol/L (98-107); Creatinine Clearance Estimated 135 mL/min (50-200); Estimated Glomerular Filt Rate 111 ml/min (>60); GFR (African American) 135 ML/MIN (>60); Globulin 3.9 g/dL (1.3-3.2); Glucose 99 mg/dl (74-100); Potassium 3.9 mmoL/L (3.5-5.1); Sodium 138 mmol/L (136-145); Total Protein,Serum 8.8 g/dl (6.3-8.2)
[2024-05-30] MEDS: IOPAMIDOL-370 (76%);100ML BOTTLE 150 ML IV (16:50)
[2024-05-30] MEDS: SODIUM CHLORIDE 0.9% 10ML SYR (RAD ONLY) 10 ML IV (16:50)
[2024-05-30] MEDS: 0.9 % SODIUM CHLORIDE 50 ML VIAL IV (16:50)
[2024-05-30 17:30] VITALS: BP 200/112; PULSE 89; O2SAT 100
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
[2024-05-30] MEDS: SODIUM CHLORIDE 0.9% 25ML BAG 25 ML IV (18:18)
[2024-05-30] MEDS: PROMETHAZINE HCL 25MG/ML 1ML VIAL 12.5 MG IV (18:18)
[2024-05-30 19:19] VITALS: BP 104/72; PULSE 74; RESP 16; TEMP 36.6; O2SAT 98
[2024-05-31 04:27] LABS: Hepatitis C Ab Qual. W/ RFX REACTIVE (Negative)
[2024-05-31 04:29] LABS: HIV Combo NEGATIVE (Negative)
== END 2024-05-30 19:26 | disposition home or self-care (01) ==
PROVIDERS: Emergency Provider Student in an Organized Health Care Education/Training Program; PCP Student in an Organized Health Care Education/Training Program
DX: H11.422 Conjunctival edema, left eye (principal); S06.0XAA Concussion with loss of consciousness status unknown, initial encounter; S30.1XXA Contusion of abdominal wall, initial encounter; S20.229A Contusion of unspecified back wall of thorax, initial encounter; S02.2XXA Fracture of nasal bones, initial encounter for closed fracture; S00.83XA Contusion of other part of head, initial encounter; S00.12XA Contusion of left eyelid and periocular area, initial encounter; Y09 Assault by unspecified means; R22.0 Localized swelling, mass and lump, head; R55 Syncope and collapse; M54.9 Dorsalgia, unspecified; M54.2 Cervicalgia; H53.122 Transient visual loss, left eye; R42 Dizziness and giddiness
CPT/HCPCS: 70450; 70486; 70496; 70498; 71275; 72125; 72128; 72131; 74174; 80053; 84703; 85025; 85610; 85730; 86803; 87389; 87522; 96361; 96374; 96375; 99291; J2270; J2405; J2550; J7120; Q9967

== ENCOUNTER 2024-06-10 07:56 | Outpatient (CLI) | payer OTHER, SELFPAY ==
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
== END 2024-06-10 23:59 | disposition home or self-care (01) ==
LOC: RAD 07:56
PROVIDERS: PCP Student in an Organized Health Care Education/Training Program; Visit Provider Family Medicine
DX: R42 Dizziness and giddiness (principal); R11.0 Nausea; R51.9 Headache, unspecified
CPT/HCPCS: 70551

== ENCOUNTER 2024-06-14 14:56 | Outpatient (CLI) | payer OTHER, SELFPAY ==
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
[2024-06-14] MEDS: SODIUM CHLORIDE 0.9% 10ML SYR (RAD ONLY) 10 ML IV (16:09)
[2024-06-14] MEDS: GADOTERIDOL INJ 20ML SYRINGE 14 ML IV (16:09)
== END 2024-06-14 23:59 | disposition home or self-care (01) ==
LOC: RAD 14:56
PROVIDERS: PCP Family Medicine; Visit Provider Family Medicine
DX: S06.0XAA Concussion with loss of consciousness status unknown, initial encounter (principal); H11.422 Conjunctival edema, left eye; S02.2XXA Fracture of nasal bones, initial encounter for closed fracture; S00.83XA Contusion of other part of head, initial encounter; S00.12XA Contusion of left eyelid and periocular area, initial encounter
CPT/HCPCS: 70552; A9576

== ENCOUNTER 2024-06-27 18:19 | Emergency (ER) | payer OTHER, SELFPAY ==
[2024-06-27 18:24] VITALS: BP 150/99; PULSE 82; RESP 16; TEMP 36.6; O2SAT 99; BMI 28.0
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
[2024-06-27 18:32] VITALS: BP 146/95; PULSE 89; O2SAT 98
--- NOTE | 2024-06-27 18:33 | ED_ITS ---
Discharge Plan Disposition Chief Complaint: Extremity Injury, Lower Prescriptions Prescriptions: No Action levocetirizine [Xyzal] 5 mg tablet 5 mg PO DAILY omeprazole 20 mg capsule,delayed release(DR/EC) 20 mg PO BID Qty: 60 2RF epinephrine [EpiPen 2-Aldo] 0.3 mg/0.3 mL auto-injector 0.3 ml SQ Q5-15M PRN (Reason: anaphylaxis) Qty: 2 0RF Rx Instructions: do not exceed 2 doses per episode montelukast [Singulair] 10 mg tablet 10 mg PO DAILY Qty: 90 3RF cholecalciferol (vitamin D3) 50 mcg (2,000 unit) capsule 50 mcg PO DAILY Qty: 90 2RF albuterol sulfate 90 mcg/actuation aerosol powdr breath activated 1 inh inhalation Q6H PRN (Reason: sob) Qty: 1 0RF ibuprofen 600 mg tablet 600 mg PO Q8H PRN (Reason: pain) 7 Days Qty: 21 0RF promethazine 25 mg tablet 25 mg PO TID PRN (Reason: nausea and vomiting) 5 Days Qty: 20 0RF ondansetron 4 mg tablet,disintegrating 4 mg PO Q6H PRN (Reason: nausea and vomiting) 5 Days Qty: 20 0RF Referrals Follow up/Referrals: Lata Carroll APRN [Primary Care Provider] - See instructions Print Language Print Language: Italian Discharge ED Provider: Howard Magallon General Adult HPI General Chief complaint: Extremity Injury, Lower Stated complaint: AO 06/26/24 Left great toe injury Time Seen by Provider: 06/27/24 18:23 Mode of Arrival: Ambulatory Source of Information: Patient Limitations: No Limitations Description of Symptoms (Recalled from ER Triage Doc. by RN): Patient presents ambulatory to triage. States she was opening a door last night when the bottom of the door caught her toenail and partially removed it. Dried blood and raised nail noted to the left great toe. Patient states she sustained the injury this morning. History of Present Illness HPI narrative: Patient is a 39-year-old female with no pertinent past medical history presents emergency department for evaluation of great toe trauma of her left foot. Patient was opening a door when she inadvertently struck her left great toe with it removing most of her toenail. Due to significant pain she presents here for continued evaluation. No other acute complaints at this time. Related Data Home Medications ?Medication ?Instructions ?Recorded ?Confirmed levocetirizine 5 mg tablet (Xyzal) 5 mg PO DAILY Allergy Symptoms 05/09/23 06/24/24 Previous Rx's ?Medication ?Instructions ?Recorded cholecalciferol (vitamin D3) 50 50 mcg PO DAILY #90 caps 02/10/24 mcg (2,000 unit) capsule montelukast 10 mg tablet 10 mg PO DAILY #90 tabs 02/10/24 (Singulair) epinephrine 0.3 mg/0.3 mL 0.3 ml SQ Q5-15M PRN anaphylaxis 04/30/24 injection, auto-injector (EpiPen #2 ea 2-Aldo) ibuprofen 600 mg tablet 600 mg PO Q8H PRN pain 7 days #21 05/30/24 tabs ondansetron 4 mg disintegrating 4 mg PO Q6H PRN nausea and 05/30/24 tablet vomiting 5 days #20 tabs promethazine 25 mg tablet 25 mg PO TID PRN nausea and 05/30/24 vomiting 5 days #20 tabs albuterol sulfate 90 mcg/actuation 1 inh inhalation Q6H PRN sob #1 ea 06/18/24 breath activated powder inhaler omeprazole 20 mg capsule,delayed 20 mg PO BID #60 caps 06/24/24 release Allergies Allergy/AdvReac Type Severity Reaction Status Date / Time propoxyphene (From Allergy Unknown Verified 06/24/24 13:00 [id number] 100) aspirin Allergy Verified 06/24/24 13:00 [facility] [place] Disclaimer: The information contained in this section may have been updated after the patient was seen, as this information can be updated by other users. 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 (Updated 06/24/24 @ 14:12 by Mayra Duenas) Family history of coronary artery disease Typical angina Dyspnea on exertion Headache Interatrial cardiac shunt Abnormal uterine bleeding (AUB) Dyspnea Atypical chest pain Cardiomyopathy Abnormal echocardiogram Transformed migraine History of endocarditis History of intravenous drug abuse Sexual dysfunction in female Asthma PCOS (polycystic ovarian syndrome) Endometriosis Migraine Stomach ulcer Pelvic pain in female Menorrhagia with regular cycle Hepatitis C infection Gastroenteritis Migraine Surgical History History of total vaginal hysterectomy (TVH) History of endometrial ablation H/O right wrist surgery History of cholecystectomy H/O tubal ligation Family History Other Family history of cancer Family history of diabetes mellitus type II Family history of hypertension Family history of irritable bowel syndrome Social History Smoking Status: Never smoker alcohol intake: current substance use type: former substance user and heroin current occupational status: employed Travel in the last 8 weeks: None Have you lived/traveled outside [place] in past 30 days?: No Contact w/someone who lives/traveled outside [place] past 30 days?: No Exposure to someone with infectious disease in past 14 days?: No Do you have a fever (greater than 100.4 F or 38 C)?: No Have you tested positive for COVID-19: No Exposed to someone with COVID-19 in past 14 days?: No Do you have a sore throat?: No Do you have a cough?: No Do you have any weakness?: No Do you have any diarrhea?: No Are you experiencing any unusual bleeding?: No Do you have any muscle aches/pain?: No Do you have any abdominal pain?: No Are you experiencing loss of taste or smell?: No Other 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 Have you received the Flu Vaccine for this season: No Have you received the Pneumonia Vaccine: No ROS Obtained: Yes Systems reviewed as appropriate & no additional complaints except as documented Physical Exam General General appearance: alert and in no apparent distress Head Head exam: atraumatic and normocephalic Eye Eye exam: Present PERRL ENT ENT exam: Present mucous membranes moist Neck Neck exam: Present normal inspection Chest Chest inspection: Present normal inspection and symmetric chest wall rise Respiratory Respiratory exam: Absent respiratory distress Cardiovascular Cardiovascular exam: Present regular rate and normal rhythm Extremities Exam Extremities exam: Present other (Partially avulsed left great toenail, distal capillary refill preserved.) Neurological Exam Neurological exam: Present alert Psychiatric Psychiatric exam: Present normal affect Skin Skin exam: Present warm and dry Medical Decision Making Medical Records Screening: Per USPSTF and CDC recommendations, given the prevalence of disease in our region, it is our hospital?s policy to screen for HIV and viral Hepatitis for all patients aged 18 and over and those with ongoing risk factors. [place] Inquiry Pt receiving controlled substance: No Vital Signs: 06/27/24 18:24 06/27/24 18:32 Temperature 97.8 F Temperature Source Temporal Artery Scan Pulse Rate 89 Pulse Rate [Radial] 82 Respiratory Rate 16 Blood Pressure 146/95 H Blood Pressure [R Arm] 150/99 H Blood Pressure Mean [R Arm] 116 Blood Pressure Position [R Arm] Sitting 02 Sat by Pulse Oximetry 99 98 Oxygen Delivery Method Room Air Room Air Orders (Tests/Meds): ORDERS Category Date Time Status Foot XR left minimum 3 views [XR foot LT min 3V] Stat Exams 06/27/24 18:31 Taken Medical Decision Narrative: In summary patient is a 39-year-old female past medical history described above who presents emergency department for evaluation of great toe trauma. Patient is hemodynamically stable nontoxic-appearing upon arrival, afebrile. Clinically patient has a partially avulsed nail which will need to be replanted firmly in the nailbed. Differential includes fracture as well therefore x-ray will be obtained. Initial inventions include digital block prior to conduction of procedure. X-ray informally visualized by me, no acute significantly displaced fracture. Patient's nail and wound was cleaned and placed back into the nail fold and wrapped with success patient is appropriate for outpatient management at this time. Procedure: Procedure performed was digital block. Procedure performed by Howard Magallon. Location was left toe. Alcohol swab cleaned the proximal toe, 7 cc of lidocaine without epinephrine was administered in totality along the bilateral sides and dorsal aspect of the great toe. Anesthesia achieved. Patient tolerated the procedure well. There were no immediate complications. Procedure: Procedure performed was nailfold splinting. Digital block performed with success. The nail that was partially avulsed was fully removed and cleaned, Hibiclens and sterile water used was used to clean the nailbed. No obvious laceration that requires repair. Nail was placed back into the proximal nail fold and then glued with Dermabond. Patient tolerated procedure well. There were no immediate complications. Critical Care Critical Care Time Critical Care Time: No
--- NOTE | 2024-06-27 18:33 | PC.NURSE ---
left great toe injury. MD @ bedside
--- NOTE | 2024-06-27 18:40 | PC.NURSE ---
xray at bs
--- NOTE | 2024-06-27 18:48 | PC.NURSE ---
CLEANED TOE AND GLUED NAIL BACK ON AT THIS TIME
[2024-06-27 19:09] VITALS: BP 146/95; PULSE 89; RESP 16; TEMP 36.7
== END 2024-06-27 19:10 | disposition home or self-care (01) ==
PROVIDERS: Emergency Provider Emergency Medicine; PCP Family Medicine
DX: S91.202A Unspecified open wound of left great toe with damage to nail, initial encounter (principal); S99.922A Unspecified injury of left foot, initial encounter; M79.675 Pain in left toe(s); W22.8XXA Striking against or struck by other objects, initial encounter; Y93.89 Activity, other specified; Y92.009 Unspecified place in unspecified non-institutional (private) residence as the place of occurrence of the external cause
CPT/HCPCS: 11730; 73630; 99283

== ENCOUNTER 2024-06-28 08:45 | Outpatient (CLI) | payer OTHER, SELFPAY | END 2024-06-28 23:59 | disposition home or self-care (01) | LOC: LAB.DROPOF 06-30 10:21 | PROVIDERS: PCP Podiatrist; Visit Provider Podiatrist | DX: S91.209A Unspecified open wound of unspecified toe(s) with damage to nail, initial encounter (principal) | CPT/HCPCS: 87070; 87077; 87186; 87205 ==

== ENCOUNTER 2024-07-02 14:07 | Emergency (ER) | payer OTHER, SELFPAY ==
[2024-07-02] VITALS (7 sets, daily range): BP systolic 130–160; BP diastolic 89–104; PULSE 75–93; RESP 14–22; TEMP 36.6–36.7; O2SAT 97–100; BMI 28.0
--- NOTE | 2024-07-02 14:09 | ECG_ITS ---
APPROVED REPORT Exam: Resting ECG HR:85 bpm ECG Measurements Heart Rate 85 AXES TX 129 P 60 QRSd 101 QRS 43 QT 363 T 5 QTc 406 Conclusion SINUS RHYTHM POSSIBLE LEFT ATRIAL ENLARGEMENT [-0.1mV P-WAVE IN V1/V2] INCOMPLETE RIGHT BUNDLE BRANCH BLOCK [90+ ms QRS DURATION, TERMINAL R IN V1/V2, 40+ ms S IN I/aVL/V4/V5/V6] NONSPECIFIC T-WAVE ABNORMALITY BORDERLINE ECG UNCONFIRMED REPORT Electronically signed by : BRIGETTE PERKINS, 07/03/2024 06:26:09
--- NOTE | 2024-07-02 14:27 | [facility].EDCP ---
Discharge Plan Disposition Patient Disposition: Home, Self-Care Condition: Good Prescriptions Prescriptions: New pantoprazole [Protonix] 40 mg tablet,delayed release (DR/EC) 40 mg PO DAILY Qty: 30 0RF No Action omeprazole 20 mg capsule,delayed release(DR/EC) 20 mg PO BID Qty: 60 2RF epinephrine [EpiPen 2-Aldo] 0.3 mg/0.3 mL auto-injector 0.3 ml SQ Q5-15M PRN (Reason: anaphylaxis) Qty: 2 0RF Rx Instructions: do not exceed 2 doses per episode sulfamethoxazole-trimethoprim [Bactrim DS] 800-160 mg tablet 1 tab PO BID 7 Days Qty: 14 0RF mupirocin 2 % ointment 1 applic topical BID 21 Days Qty: 22 1RF Rx Instructions: Apply to affected area up to twice daily montelukast [Singulair] 10 mg tablet 10 mg PO DAILY Qty: 90 3RF cholecalciferol (vitamin D3) 50 mcg (2,000 unit) capsule 50 mcg PO DAILY Qty: 90 2RF albuterol sulfate 90 mcg/actuation aerosol powdr breath activated 1 inh inhalation Q6H PRN (Reason: sob) Qty: 1 0RF ibuprofen 600 mg tablet 600 mg PO Q8H PRN (Reason: pain) 7 Days Qty: 21 0RF promethazine 25 mg tablet 25 mg PO TID PRN (Reason: nausea and vomiting) 5 Days Qty: 20 0RF ondansetron 4 mg tablet,disintegrating 4 mg PO Q6H PRN (Reason: nausea and vomiting) 5 Days Qty: 20 0RF Referrals Follow up/Referrals: Huan Ann II, MD [Staff Physician] - See instructions Provider,MD Leon [Referring] - See instructions Activity Restrictions/Add. Instructions Additional Instructions/Restrictions: Please start taking your Protonix every evening starting tomorrow night. Please call on Friday to make your appointment with Dr. Ann. If you have continued new or worsening signs or symptoms follow-up with your PCP sooner or return to the ER. Clinical Impressions Clinical Impression: Chest pain Qualifiers: Chest pain type: unspecified Qualified Code(s): R07.9 - Chest pain, unspecified Dysphagia Qualifiers: Dysphagia type: unspecified Qualified Code(s): R13.10 - Dysphagia, unspecified Instructions Patient Instructions: DI for Esophageal Dysphagia Print Language Print Language: [place] Discharge ED Provider: Hossein Cruz HPI <TRINY Jane - Last Filed: 07/02/24 21:23> General Chief Complaint: Chest Pain Stated Complaint: abnormal ekg cp Time Seen by Provider: 07/02/24 14:14 Mode of Arrival: Ambulatory Source of Information: Patient Limitations: No Limitations Description of Symptoms (Recalled from ER Triage Doc. by RN): Patient presents with intermittent indigestion that was present when she woke up at 0745 today. Patient took omeprazole and six Tums with no relief. Patient reports that she had an abnormal EKG prior to arrival. History of Present Illness HPI narrative: Patient presents for evaluation of burning chest pain. Patient states that she woke up this morning with heartburn . She describes it as burning and pain in the center of her chest. She has had this previously and treats it with Tums however she has taken 4-5 times today without relief. 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 She denies any shortness of breath fever chills hemoptysis hematochezia melena hemoptysis hematochezia melena nausea vomit diarrhea. Patient has never had upper endoscopy or seen GI for her heartburn symptoms. Related Data Previous Rx's ?Medication ?Instructions ?Recorded cholecalciferol (vitamin D3) 50 50 mcg PO DAILY #90 caps 02/10/24 mcg (2,000 unit) capsule montelukast 10 mg tablet 10 mg PO DAILY #90 tabs 02/10/24 (Singulair) epinephrine 0.3 mg/0.3 mL 0.3 ml SQ Q5-15M PRN anaphylaxis 04/30/24 injection, auto-injector (EpiPen #2 ea 2-Aldo) ibuprofen 600 mg tablet 600 mg PO Q8H PRN pain 7 days #21 05/30/24 tabs ondansetron 4 mg disintegrating 4 mg PO Q6H PRN nausea and 05/30/24 tablet vomiting 5 days #20 tabs promethazine 25 mg tablet 25 mg PO TID PRN nausea and 05/30/24 vomiting 5 days #20 tabs albuterol sulfate 90 mcg/actuation 1 inh inhalation Q6H PRN sob #1 ea 06/18/24 breath activated powder inhaler omeprazole 20 mg capsule,delayed 20 mg PO BID #60 caps 06/24/24 release mupirocin 2 % topical ointment 1 applic topical BID cellulitis 3 06/28/24 weeks #22 grams sulfamethoxazole 800 1 tab PO BID cellulitis 7 days #14 06/28/24 mg-trimethoprim 160 mg tablet tabs (Bactrim DS) pantoprazole 40 mg tablet,delayed 40 mg PO DAILY #30 tabs 07/02/24 release (Protonix) Allergies Allergy/AdvReac Type Severity Reaction Status Date / Time aspirin Allergy Unknown Other Verified 07/02/24 14:18 propoxyphene (From Allergy Unknown Other Verified 07/02/24 14:18 DARVOCET-N 100) [facility] <TRINY Jane - Last Filed: 07/02/24 21:23> [facility] Disclaimer: The information contained in this section may have been updated after the patient was seen, as this information can be updated by other users. 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 Family history of coronary artery disease Typical angina Dyspnea on exertion Headache Interatrial cardiac shunt Abnormal uterine bleeding (AUB) Dyspnea Atypical chest pain Cardiomyopathy Abnormal echocardiogram Transformed migraine History of endocarditis History of intravenous drug abuse Sexual dysfunction in female Asthma PCOS (polycystic ovarian syndrome) Endometriosis Migraine Stomach ulcer Pelvic pain in female Menorrhagia with regular cycle Hepatitis C infection Unknown details Gastroenteritis Migraine Surgical History History of total vaginal hysterectomy (TVH) with bilateral salpingectomy History of endometrial ablation H/O right wrist surgery History of cholecystectomy H/O tubal ligation Family History Other Family history of cancer Family history of diabetes mellitus type II Family history of hypertension Family history of irritable bowel syndrome Social History Smoking Status: Never smoker alcohol intake: current substance use type: former substance user and heroin current occupational status: employed Travel in the last 8 weeks: None Have you lived/traveled outside US in past 30 days?: No Contact w/someone who lives/traveled outside US past 30 days?: No Exposure to someone with infectious disease in past 14 days?: No Do you have a fever (greater than 100.4 F or 38 C)?: No Have you tested positive for COVID-19: No Exposed to someone with COVID-19 in past 14 days?: No Do you have a sore throat?: No Do you have a cough?: No Do you have any weakness?: No Do you have any diarrhea?: No Are you experiencing any unusual bleeding?: No Do you have any muscle aches/pain?: No Do you have any abdominal pain?: No Are you experiencing loss of taste or smell?: No Other 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 Have you received the Flu Vaccine for this season: No Have you received the Pneumonia Vaccine: No <TRINY Jane - Last Filed: 07/02/24 21:23> ROS Obtained: Yes Systems reviewed as appropriate & no additional complaints except as documented Physical Exam <TRINY Jane - Last Filed: 07/02/24 21:23> General General appearance: alert and in no apparent distress Respiratory Respiratory exam: Present normal lung sounds bilaterally Cardiovascular Cardiovascular exam: Present regular rate Neurological Exam Neurological exam: Present alert and oriented X3 HEART Score <TRINY Jane - Last Filed: 07/02/24 21:23> HEART Score HEART Score assessment performed?: Yes History (anamnesis): Slightly suspicious ECG: Non-specific disturbance Age: <45 years Risk factors: 1-2 risk factors Troponin: </= normal limit HEART Score: 2 <Hossein Cruz MD - Last Filed: 07/03/24 07:33> HEART Score HEART Score: 2 Procedures <Hossein Cruz MD - Last Filed: 07/03/24 07:33> Limited Ultrasound Indication:: Ultrasound-guided line placement Indication: -Difficult IV access, multiple pokes Identified structures: -Upper extremity veins Location/access site: -Left upper extremity median vein Vessel patency: -Patent Direct visualization? -Yes Impression: Successful placement of 20-gauge catheter in left upper median vein Images were not saved to permanent archive The study was technically adequate CPT Codes: Venipuncture: 76554-30 Age <3 yo: 20132-70 Age >3yo: 46812-23 Central line <5 yo: 68781-88 Central line >5 yo: 15815-52 This study was performed by me, and I personally interpreted all images/videos. Based on my clinical judgement, these images were adequate and did not necessitate further imaging Critical Care <TRINY Jane - Last Filed: 07/02/24 21:23> Critical Care Time Critical Care Time: No Medical Decision Making <TRINY Jane - Last Filed: 07/02/24 21:23> Medical Records Medical records reviewed: Yes I reviewed the patient's medical records. Sagar Inquiry Pt receiving controlled substance: No Vital Signs Vital Signs: 07/02/24 14:13 07/02/24 14:38 07/02/24 15:00 Temperature 98 F Temperature Source Oral Pulse Rate 79 88 Pulse Rate [Left Radial] 93 H Respiratory Rate 16 18 19 Blood Pressure 131/99 H 130/89 Blood Pressure [Right Arm] 160/104 H Blood Pressure Mean [Right Arm] 122 Blood Pressure Source Blood Pressure Source [Right Arm] Automatic Cuff Blood Pressure Position [Right Arm] Supine 02 Sat by Pulse Oximetry 99 100 100 Oxygen Delivery Method Room Air Room Air 07/02/24 15:31 07/02/24 16:00 07/02/24 16:30 Temperature Temperature Source Pulse Rate 81 75 85 Pulse Rate [Left Radial] Respiratory Rate 22 14 14 Blood Pressure 156/102 H 133/91 H 132/89 Blood Pressure [Right Arm] Blood Pressure Mean [Right Arm] Blood Pressure Source Blood Pressure Source [Right Arm] Blood Pressure Position [Right Arm] 02 Sat by Pulse Oximetry 97 100 100 Oxygen Delivery Method Room Air Room Air Room Air 07/02/24 16:56 Temperature 98.0 F Temperature Source Oral Pulse Rate 80 Pulse Rate [Left Radial] Respiratory Rate 17 Blood Pressure 132/89 Blood Pressure [Right Arm] Blood Pressure Mean [Right Arm] Blood Pressure Source Automatic Cuff Blood Pressure Source [Right Arm] Blood Pressure Position [Right Arm] 02 Sat by Pulse Oximetry Oxygen Delivery Method Room Air Lab Data Lab results reviewed: Yes I reviewed the patient's lab results. Labs: Lab Results 07/02/24 15:10: Chlamy pneumoniae PCR Not detected, Adenovirus (PCR) Not detected, B. pertussis DNA (PCR) Not detected, Coronavirus OC43 (PCR) Not detected, Coronavirus HKU1 (PCR) Not detected, Coronavirus 229E (PCR) Not detected, SARS-CoV-2 (PCR) Not detected, Coronavirus NL63 (PCR) Not detected, Human Metapneumovir PCR Not detected, Influenza A (H1) PCR Not detected, Influ A (H1N1/09) PCR Not detected, Influenza A (H3) PCR Not detected, Influenza Type A (PCR) Not detected, Influenza Type B (PCR) Not detected, M. pneumoniae (PCR) Not detected, Parainfluenza 1 (PCR) Not detected, Parainfluenza 2 (PCR) Not detected, Parainfluenza 3 (PCR) Not detected, Parainfluenza 4 (PCR) Not detected, RSV (PCR) Not detected, Entero/Rhino (PCR) Not detected 07/02/24 15:11: WBC 8.6, RBC 3.91 L, Hgb 12.7, Hct 36.8 L, MCV 94.1, MCH 32.5 H, MCHC 34.5, RDW 12.2, Plt Count 201, MPV 10.7 H, Neut % (Auto) 79.6, Lymph % (Auto) 12.3, Sanders % (Auto) 6.2, Eos % (Auto) 1.2, Baso % (Auto) 0.6, Neut # (Auto) 6.9, Lymph # (Auto) 1.1, Sanders # (Auto) 0.5, Eos # (Auto) 0.1, Baso # (Auto) 0.1, D-Dimer < 0.25, Sodium 136, Potassium 4.1, Chloride 105, Carbon Dioxide 24, Anion Gap 11.1, BUN 11, Creatinine 0.60, Estimated Creat Clear 138, Estimated GFR 111, Est GFR ( Amer) 135, Glucose 111 H, Calcium 8.6, Magnesium 1.9, Total Bilirubin 0.7, AST 33, ALT 22, Alkaline Phosphatase 41, Troponin I < 0.01, Total Protein 7.9, Albumin 4.6, Globulin 3.3 H, Albumin/Globulin Ratio 1.4 07/02/24 15:11 07/02/24 15:11 Response Orders (Tests/Meds): ED MEDICATIONS Discontinued Medications Generic Name Dose Route Start Last Admin Trade Name Freq PRN Reason Stop Dose Admin Acetaminophen 1,000 mg 07/02/24 14:49 07/02/24 15:16 Acetaminophen 500mg Tab PO 07/02/24 14:50 1,000 mg ONCE ONE Administration Belladonna Alkaloids 60 ml 07/02/24 14:49 07/02/24 15:16 Belladonna Alkaloids 60 Ml Ml PO 07/02/24 14:50 60 ml ONCE ONE Administration Pantoprazole Sodium 40 mg 07/02/24 16:49 07/02/24 16:54 Pantoprazole 40mg Tablet PO 07/02/24 16:50 40 mg ONCE ONE Administration ORDERS Category Date Time Status Chest XR 2 view (NOT portable) [XR chest 2V] Stat Exams 07/02/24 14:50 Completed CBC w/Auto Diff [Complete Blood Count Auto Diff] Stat Lab 07/02/24 15:11 Completed CMP [Comprehensive Metabolic Panel] Stat Lab 07/02/24 15:11 Completed D-Dimer Stat Lab 07/02/24 15:11 Completed Full Resp Panel w/COVID ([facility]) Routine Lab 07/02/24 15:10 Completed Magnesium Stat Lab 07/02/24 15:11 Completed Trop I [Troponin I] Stat Lab 07/02/24 15:11 Completed MDM Narrative Medical Decision Narrative: In summary patient is a 39-year-old female who presents to the emergency department for evaluation of burning chest pain since 7 AM. Patient is hemodynamically stable with blood pressure 160/104 pulse 93 normal sinus rhythm on the bedside monitor breathing 16 times a minute satting at 99% on room air upon arrival, afebrile and 98. Physical exam is remarkable for clear breath sounds no reproducible pain on palpation of the chest wall or epigastrium abdominal exam is benign soft nontender no rebound or guarding or rigidity bowel sounds normal active. Differential diagnosis includes ACS versus esophagitis versus ulcer disease versus infection etc. Initial workup will be conducted with hematologic labs, chest x-ray, twelve-lead EKG. Initial interventions include Tylenol Toradol GI cocktail. Initial workup reviewed by me shows that her hematologic labs are nonactionable with a normal white count normal H&H a D-dimer of less than 0.25 troponin less than 0.01 her full respiratory panel is negative for all organisms tested and my informed interpretation of her plain film chest x-ray shows no acute processes prior to radiology read. Upon repeat evaluation patient reported that the GI cocktail numbed the discomfort however she still had a burning sensation. Given this I suspect patient may have esophagitis however patient likely needs referral to gastroenterology for upper endoscopy for fully ruling out. Cardiac source seems less likely as patient is EKG both in the emergency department in the cardiology clinic and from your prior are all identical. I will refer the patient to cardiology for further workup as well. I started the patient on Protonix until seen by gastroenterology and I have advised her to stop taking Tums this that likely can cause reflux esophagitis. Patient to follow-up with PCP for continued new or worsening symptoms or return to the ER as needed. <Hossein Cruz MD - Last Filed: 07/03/24 07:33> Vital Signs Vital Signs: 07/02/24 14:13 07/02/24 14:38 07/02/24 15:00 Temperature 98 F Temperature Source Oral Pulse Rate 79 88 Pulse Rate [Left Radial] 93 H Respiratory Rate 16 18 19 Blood Pressure 131/99 H 130/89 Blood Pressure [Right Arm] 160/104 H Blood Pressure Mean [Right Arm] 122 Blood Pressure Source Blood Pressure Source [Right Arm] Automatic Cuff Blood Pressure Position [Right Arm] Supine 02 Sat by Pulse Oximetry 99 100 100 Oxygen Delivery Method Room Air Room Air 07/02/24 15:31 07/02/24 16:00 07/02/24 16:30 Temperature Temperature Source Pulse Rate 81 75 85 Pulse Rate [Left Radial] Respiratory Rate 22 14 14 Blood Pressure 156/102 H 133/91 H 132/89 Blood Pressure [Right Arm] Blood Pressure Mean [Right Arm] Blood Pressure Source Blood Pressure Source [Right Arm] Blood Pressure Position [Right Arm] 02 Sat by Pulse Oximetry 97 100 100 Oxygen Delivery Method Room Air Room Air Room Air 07/02/24 16:56 Temperature 98.0 F Temperature Source Oral Pulse Rate 80 Pulse Rate [Left Radial] Respiratory Rate 17 Blood Pressure 132/89 Blood Pressure [Right Arm] Blood Pressure Mean [Right Arm] Blood Pressure Source Automatic Cuff Blood Pressure Source [Right Arm] Blood Pressure Position [Right Arm] 02 Sat by Pulse Oximetry Oxygen Delivery Method Room Air Lab Data Labs: Lab Results 07/02/24 15:10: Chlamy pneumoniae PCR Not detected, Adenovirus (PCR) Not detected, B. pertussis DNA (PCR) Not detected, Coronavirus OC43 (PCR) Not detected, Coronavirus HKU1 (PCR) Not detected, Coronavirus 229E (PCR) Not detected, SARS-CoV-2 (PCR) Not detected, Coronavirus NL63 (PCR) Not detected, Human Metapneumovir PCR Not detected, Influenza A (H1) PCR Not detected, Influ A (H1N1/09) PCR Not detected, Influenza A (H3) PCR Not detected, Influenza Type A (PCR) Not detected, Influenza Type B (PCR) Not detected, M. pneumoniae (PCR) Not detected, Parainfluenza 1 (PCR) Not detected, Parainfluenza 2 (PCR) Not detected, Parainfluenza 3 (PCR) Not detected, Parainfluenza 4 (PCR) Not detected, RSV (PCR) Not detected, Entero/Rhino (PCR) Not detected 07/02/24 15:11: WBC 8.6, RBC 3.91 L, Hgb 12.7, Hct 36.8 L, MCV 94.1, MCH 32.5 H, MCHC 34.5, RDW 12.2, Plt Count 201, MPV 10.7 H, Neut % (Auto) 79.6, Lymph % (Auto) 12.3, Sanders % (Auto) 6.2, Eos % (Auto) 1.2, Baso % (Auto) 0.6, Neut # (Auto) 6.9, Lymph # (Auto) 1.1, Sanders # (Auto) 0.5, Eos # (Auto) 0.1, Baso # (Auto) 0.1, D-Dimer < 0.25, Sodium 136, Potassium 4.1, Chloride 105, Carbon Dioxide 24, Anion Gap 11.1, BUN 11, Creatinine 0.60, Estimated Creat Clear 138, Estimated GFR 111, Est GFR ( Amer) 135, Glucose 111 H, Calcium 8.6, Magnesium 1.9, Total Bilirubin 0.7, AST 33, ALT 22, Alkaline Phosphatase 41, Troponin I < 0.01, Total Protein 7.9, Albumin 4.6, Globulin 3.3 H, Albumin/Globulin Ratio 1.4 Response Orders (Tests/Meds): ED MEDICATIONS Discontinued Medications Generic Name Dose Route Start Last Admin Trade Name Freq PRN Reason Stop Dose Admin Acetaminophen 1,000 mg 07/02/24 14:49 07/02/24 15:16 Acetaminophen 500mg Tab PO 07/02/24 14:50 1,000 mg ONCE ONE Administration Belladonna Alkaloids 60 ml 07/02/24 14:49 07/02/24 15:16 Belladonna Alkaloids 60 Ml Ml PO 07/02/24 14:50 60 ml ONCE ONE Administration Pantoprazole Sodium 40 mg 07/02/24 16:49 07/02/24 16:54 Pantoprazole 40mg Tablet PO 07/02/24 16:50 40 mg ONCE ONE Administration ORDERS Category Date Time Status Chest XR 2 view (NOT portable) [XR chest 2V] Stat Exams 07/02/24 14:50 Completed CBC w/Auto Diff [Complete Blood Count Auto Diff] Stat Lab 07/02/24 15:11 Completed CMP [Comprehensive Metabolic Panel] Stat Lab 07/02/24 15:11 Completed D-Dimer Stat Lab 07/02/24 15:11 Completed Full Resp Panel w/COVID ([facility]) Routine Lab 07/02/24 15:10 Completed Magnesium Stat Lab 07/02/24 15:11 Completed Trop I [Troponin I] Stat Lab 07/02/24 15:11 Completed ECG Data Tracing #1: Attestation: I reviewed this ECG and interpreted as documented below: (Sinus rhythm with incomplete right bundle branch block morphology. Ventricular rate 85 bpm, CA 129, QRS 101, QTc 406 with normal axis patient does have T wave inversions in anterior and lateral leads as well as inferior leads. No acute ischemic change as this is similar to previous EKGs from [facility] ) MDM Narrative Medical Decision Narrative: In summary patient is a 39-year-old female who presents to the emergency department for evaluation of burning chest pain since 7 AM. Patient is hemodynamically stable with blood pressure 160/104 pulse 93 normal sinus rhythm on the bedside monitor breathing 16 times a minute satting at 99% on room air upon arrival, afebrile and 98. Physical exam is remarkable for clear breath sounds no reproducible pain on palpation of the chest wall or epigastrium abdominal exam is benign soft nontender no rebound or guarding or rigidity bowel sounds normal active. Differential diagnosis includes ACS versus esophagitis versus ulcer disease versus infection etc. Initial workup will be conducted with hematologic labs, chest x-ray, twelve-lead EKG. Initial interventions include Tylenol Toradol GI cocktail. Initial workup reviewed by me shows that her hematologic labs are nonactionable with a normal white count normal H&H a D-dimer of less than 0.25 troponin less than 0.01 her full respiratory panel is negative for all organisms tested and my informed interpretation of her plain film chest x-ray shows no acute processes prior to radiology read. Upon repeat evaluation patient reported that the GI cocktail numbed the discomfort however she still had a burning sensation. Given this I suspect patient may have esophagitis however patient likely needs referral to gastroenterology for upper endoscopy for fully ruling out. Cardiac source seems less likely as patient is EKG both in the emergency department in the cardiology clinic and from your prior are all identical. I will refer the patient to cardiology for further workup as well. I started the patient on Protonix until seen by gastroenterology and I have advised her to stop taking Tums this that likely can cause reflux esophagitis. Patient to follow-up with PCP for continued new or worsening symptoms or return to the ER as needed. I was consulted by the GIULIA, and we discussed the complexity of the problems being addressed. I approved the treatment and management plan for this patient's care in the Emergency Department, thus performing a substantive portion of the medical decision making. Hossein Cruz MD
--- NOTE | 2024-07-02 14:38 | PC.NURSE ---
pt difficult stick for IV insertion, IV insertion attempted twice, unsuccessful. awaiting for IV ultrasound placement.
--- NOTE | 2024-07-02 14:39 | PC.NURSE ---
1409- EKG completed, given to provider. Patient placed on cardiac, BP, and SpO2 monitoring. Family at bedside x 1. Patient expresses no needs at this time. 1415- Missed IV attempts x 2 by [employer]. 1439- Hourly rounding completed, patient expresses no needs at this time, hemodynamic monitoring continued. RICARDO Brizuela at bedside for evaluation. Awaiting additional orders.
--- NOTE | 2024-07-02 14:50 | XR_ITS ---
FINAL REPORT CLINICAL HISTORY: Chest pain COMPARISON: 04/18/2023 FINDINGS: PA and lateral views of the chest were obtained. The cardiac and mediastinal silhouettes are within normal limits. The lungs are clear. There is no pleural effusion or pneumothorax. No acute osseous abnormality is identified. IMPRESSION: No radiographic evidence of acute cardiac or pulmonary disease. Reviewed, Interpreted and Dictated by Bess Clemente MD Transcribed by Griselda Myrick Authenticated and . [facility]
[2024-07-02] MEDS: BELLADONNA ALKALOIDS 60 ML ML PO (15:16)
[2024-07-02] MEDS: ACETAMINOPHEN 500MG TAB 1000 MG PO (15:16)
[2024-07-02 15:21] LABS: Adenovirus,PCR Not Detected (NotDetected); Bordetella Pertussis Not Detected (NotDetected); Chlamydophila Pneumoniae, PCR Not Detected (NotDetected); Coronavirus 19, PCR Not Detected (NotDetected); Coronavirus 229E Not Detected (NotDetected); Coronavirus NL63 Not Detected (NotDetected); Coronavirus OC43 Not Detected (NotDetected); Coronovirus HKU1,PCR Not Detected (NotDetected); Human Metapneumovirus Not Detected (NotDetected); Influenza A, PCR Not Detected (NotDetected); Influenza AH1, 2009 Not Detected (NotDetected); Influenza AH1, PCR Not Detected (NotDetected); Influenza AH3,PCR Not Detected (NotDetected); Influenza B, PCR Not Detected (NotDetected); Mycoplasma Pneumoniae, PCR Not Detected (NotDetected); Parainfluenza 1, PCR Not Detected (NotDetected); Parainfluenza 2, PCR Not Detected (NotDetected); Parainfluenza 3, PCR Not Detected (NotDetected); Parainfluenza 4, PCR Not Detected (NotDetected); Respiratory Syncytial Virus Not Detected (NotDetected); Rhinovirus/Enterovirus Not Detected (NotDetected)
[2024-07-02 15:29] LABS: Basophils # 0.1 K/mm3 (0-0.2); Basophils % 0.6 % (0.1-2.0); Eosinophils # 0.1 K/mm3 (0.0-0.4); Eosinophils % 1.2 % (0.1-12.0); Hematocrit 36.8 % (37.0-47.0); Hemoglobin 12.7 g/dL (12.2-16.2); Lymphocytes # 1.1 K/mm3 (0.7-4.5); Lymphocytes % 12.3 % (10-50); Mean Corpuscular HGB Conc 34.5 g/dL (31.8-35.4); Mean Corpuscular Hemoglobin 32.5 pg (27.0-31.2); Mean Corpuscular Volume 94.1 fl (81-99); Mean Platelet Volume 10.7 fl (7.4-10.4); Monocytes # 0.5 K/mm3 (0.1-1.0); Monocytes % 6.2 % (1.7-9.3); Neutrophils # 6.9 K/mm3 (1.8-7.8); Neutrophils % 79.6 % (37.0-80.0); Platelet Count 201 K/mm3 (142-424); Red Blood Count 3.91 M/mm3 (4.20-5.40); Red Cell Distribution Width 12.2 % (11.5-17.5); White Blood Count 8.6 K/mm3 (4.8-10.8)
[2024-07-02 15:30] LABS: Albumin Level 4.6 g/dl (3.5-5.0); Chloride 105 mmol/L (98-107)
[2024-07-02 15:31] LABS: Potassium 4.1 mmoL/L (3.5-5.1); Sodium 136 mmol/L (136-145)
[2024-07-02 15:33] LABS: Alanine Aminotransferase 22 U/L (12-78); Aspartate Amino Transferase 33 U/L (14-36); Blood Urea Nitrogen 11 mg/dl (7-17); Creatinine Clearance Estimated 138 mL/min (50-200); Estimated Glomerular Filt Rate 111 ml/min (>60); GFR (African American) 135 ML/MIN (>60)
[2024-07-02 15:34] LABS: Albumin/Globulin Ratio 1.4 (1.1-1.8); Alkaline Phosphatase 41 U/L (38-126); Anion Gap 11.1 mEq/L (5-15); Bilirubin,Total 0.7 mg/dl (0.2-1.3); Calcium 8.6 mg/dl (8.4-10.2); Carbon Dioxide 24 mmol/L (22.0-30.0); Globulin 3.3 g/dL (1.3-3.2); Glucose 111 mg/dl (74-100); Magnesium 1.9 mg/dl (1.6-2.3); Total Protein,Serum 7.9 g/dl (6.3-8.2)
[2024-07-02 15:46] LABS: Troponin I < 0.01 ng/ml (0.00-0.034)
[2024-07-02 15:56] LABS: D-Dimer < 0.25 ug/mL (0.0-0.5)
[2024-07-02] MEDS: PANTOPRAZOLE 40MG TABLET 40 MG PO (16:54)
== END 2024-07-02 16:58 | disposition home or self-care (01) ==
PROVIDERS: Physician Assistant; Emergency Provider Emergency Medicine; PCP Family Medicine
DX: R07.9 Chest pain, unspecified (principal); R10.13 Epigastric pain
CPT/HCPCS: 71046; 80053; 83735; 84484; 85025; 85378; 87633; 93005; 99284

== ENCOUNTER 2024-07-07 15:48 | Outpatient (CLI) | payer OTHER, SELFPAY ==
[2024-07-07 20:12] LABS: Alanine Aminotransferase 20 U/L (12-78); Albumin/Globulin Ratio 1.6 (1.1-1.8); Alkaline Phosphatase 59 U/L (38-126); Aspartate Amino Transferase 22 U/L (14-36); Bilirubin,Total 0.6 mg/dl (0.2-1.3); Blood Urea Nitrogen 15 mg/dl (7-17); Calcium 9.5 mg/dl (8.4-10.2); Carbon Dioxide 26 mmol/L (22.0-30.0); Chloride 104 mmol/L (98-107); Estimated Glomerular Filt Rate 93 ml/min (>60); GFR (African American) 113 ML/MIN (>60); Globulin 3.2 g/dL (1.3-3.2); Glucose 77 mg/dl (74-100); Sodium 139 mmol/L (136-145); Total Protein,Serum 8.2 g/dl (6.3-8.2)
== END 2024-07-07 23:59 | disposition home or self-care (01) ==
LOC: LAB.DROPOF 07-08 15:49
PROVIDERS: PCP Nurse Practitioner Family; Visit Provider Nurse Practitioner Family
DX: R76.8 Other specified abnormal immunological findings in serum (principal)
CPT/HCPCS: 80053; 87522

== ENCOUNTER 2024-07-12 10:49 | Outpatient (CLI) | payer OTHER, SELFPAY ==
--- NOTE | 2024-07-12 10:51 | CA_ITS ---
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6-1.1) EF (Teich) 50.20% FS 25.40% EDV (Teich) 92.00 mL ESV (Teich) 45.80 mL LV Diastology E Decel Time 150 (160-240 msec) E/A Ratio 1.4 MED E' 8.9 (>= 7 cm/sec) E'/MED E' Ratio 7.37 (<= 14) LAT E' 10.4 (>= 10 cm/sec) E/LAT E' Ratio 6.31 (<= 14) Mitral Valve MV E Max Kyler. 66.0 (40-130 cm/s) MV A Velocity 47.0 (40-130 cm/s) E/A Ratio 1.41 MV Decel. Time 150 (160-240 ms) Left Ventricle The left ventricle is normal size. The left ventricular systolic function is normal. The left ventricular ejection fraction is within the normal range. There is normal left ventricular wall thickness. There is normal LV segmental wall motion. The left ventricular diastolic function is normal. LVEF is 55%. Right Ventricle The right ventricle is normal size. The right ventricular systolic function is normal. Atria The left atrium size is normal. The right atrium size is normal. There is no Doppler evidence of interatrial shunt. Aortic Valve The aortic valve opens well. There is no aortic valvular stenosis. No aortic regurgitation is present. Mitral Valve The mitral valve is normal in structure. No evidence of mitral valve stenosis. There is no mitral valve regurgitation noted. Tricuspid Valve Tricuspid valve is grossly normal in structure and function. Trace tricuspid regurgitation. There is insufficient TR jet to estimate RVSP. Pulmonic Valve The pulmonary valve is normal in structure. Trace pulmonic regurgitation. Great Vessels The aortic root is normal in size. IVC is normal in size and collapses >50% with inspiration. Pericardium There is no pericardial effusion. Other Information Study Quality: Adequate Conclusion Normal biventricular systolic function. No significant valvular stenosis or regurgitation. Electronically signed by : Triny Rodriguez MD 07/20/2024 10:25:07
== END 2024-07-12 23:59 | disposition home or self-care (01) ==
LOC: RT 10:50
PROVIDERS: PCP Family Medicine; Visit Provider Internal Medicine
DX: R55 Syncope and collapse (principal); R06.09 Other forms of dyspnea; I20.9 Angina pectoris, unspecified; Z82.49 Family history of ischemic heart disease and other diseases of the circulatory system
CPT/HCPCS: 93306

== ENCOUNTER 2024-07-22 07:01 | Outpatient (CLI) | payer OTHER, SELFPAY ==
--- NOTE | 2024-07-22 07:02 | CT_ITS ---
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 A noncontrast coronary calcium scan was performed. A CT attenuation threshold of 130 Hounsfield units (HU) was used for the detection of calcium in contiguous voxels of 1 sq mm in area to be counted as individual lesions. Bolus tracking in the ascending aorta with a threshold of 180 HU was performed. Immediately afterwards, ECG synchronized cardiac CT was then performed from the cardiac base to apex using retrospective gating with ECG tube current modulation. A total of 85 mL of Isovue 370 mg/mL contrast medium was administered at 5 mL/sec followed by a saline flush using a biphasic injection protocol. A tube voltage of 120 KVp was used. The patient received the following medications prior to the cardiac CT. 75 mg of oral metoprolol 15 mg of oral ivabradine 0.4 mg of sublingual nitroglycerin The average heart rate at the time of acquisition was 56 bpm and regular. Image Reconstruction Transaxial images were reconstructed at 0.67 mm slide thickness. Data was reviewed interactively on an advanced workstation capable of 2 and 3-dimensional displays in all conventional reconstruction formats, including multiplanar reformations, maximum intensity projections, curved multiplanar reformations, and volume rendered reconstructions. When applicable, selected routine images describing the relevant coronary anatomy and pathology were saved and sent to PACS. Complications None Technical Quality Overall image quality was good. Coronary artery opacification was adequate. Total DLP (Dose-Length Product) is 1303.0 mGy-cm. The reported value represents the total of one or more individual components during the CT acquisition of this date and at this time, and as such, the same value may appear in more than one CT report depending on the interpreting/reporting physicians. COMPARISON None FINDINGS CT Coronary Calcium Scoring LMA (Left Main Artery) = 0 LAD (Left Anterior Descending) = 0 LCX (Left Coronary Circumflex) = 0 RCA (Right Coronary Artery) = 0 Total Calcium Score = 0 using the AJ-130 method. The interpretation of the calcium heart score is based on the following continuum*: 0 = no calcified plaque detected (risk of coronary artery disease is very low ??? less than 5%) 1-10 = calcium detected in extremely minimal levels (risk of coronary diseases is still low ??? less than 10%) 11-100 = mild levels of plaque detected with certainty (mild or minimal narrowing of heart arteries is likely) 101-400 = definite,at least moderate levels of plaque detected (relatively high risk of a heart attack within 3-5 years) >401-999 = extensive levels of plaque detected (high risk of heart attack, high levels of vascular disease are present, high likelihood of at least one significant coronary narrowing) *The calcium heart score quantifies the burden of coronary calcification/plaque in the coronary arteries. The calcium heart score is not able to evaluate the presence or burden of non-calcified (i.e. soft) plaque. There is no identifiable calcification in the aortic valve, mitral annulus or mitral valve, pericardium, or myocardium. Coronary CT Angiography The coronary arterial system is right dominant. Quantitative Stenosis Grading: Left Main (LM): The left main originates normally from the left sinus of Valsalva. The LM bifurcates into the left anterior descending artery and left circumflex artery. The LM is patent with no evidence of atherosclerosis. Left Anterior Descending (LAD) and Diagonal Branches: The LAD gives off 2 diagonal branch(es). The LAD and its branches are patent with no evidence of atherosclerosis. There is no evidence of LAD-myocardial bridge. Left Circumflex (LCX) and Obtuse Marginals (OM): The LCX gives off 1 Obtuse Marginal (OM) branch(es). The LCX and its branches are patent with no evidence of atherosclerosis. Right Coronary Artery (RCA): The RCA originates normally from the right sinus of Valsalva. The RCA gives off a posterior descending artery (PDA) and posterolateral (PL) branches. The RCA and its branches are patent with no evidence of atherosclerosis. Non-Coronary Cardiac Findings: Analysis of the left ventricular (LV) structure and function was performed after 3-D reconstruction of the LV from axial images, with user-corrected automatic contouring for assessment of LV volumes and user-defined reconstruction from oblique planes for measurement of 3-D cardiac structure and function. -The left ventricle systolic function is normal. -There is minimal IV contrast extravasation from the left atrium into the right atrium, suggestive of presence of a small interatrial shunt. -There is no left atrial appendage filling defect. Two right pulmonary veins and two left pulmonary veins drain normally into the left atrium. -No pericardial thickening or calcification. -Central and branch pulmonary arteries in the [id number] are unremarkable. -Thoracic aorta within the visualized thoracic aortic-branches in the [id number] is unremarkable. Extracardiac Structures No significant extra-cardiac findings. Note, however, that this study is focused on the cardiac findings. IMPRESSION -Absence of coronary calcification with an Agatston score = 0 using the AJ-130 method. -No evidence of significant flow-limiting atherosclerosis of the coronary arteries. -No evidence of myocardial bridges or coronary anomalies. -CAD-RADS 0. Management recommendations per ACC/AHA guidelines*, as clinically appropriate. -There is minimal IV contrast extravasation from the left atrium into the right atrium, suggestive of presence of a small interatrial shunt. *Recommendations: CAD RADS 0: Reassurance. Consider non-atherosclerotic causes of chest pain. CAD RADS 1: Consider non-atherosclerotic causes of chest pain. Consider preventive therapy and risk factor modification. CAD RADS 2: Consider non-atherosclerotic causes of chest pain. Consider preventive therapy and risk factor modification, particularly for patients with nonobstructive plaque in multiple segments. CAD RADS 3: Consider further functional testing. Consider symptom-guided anti-ischemic and preventive pharmacotherapy as well as risk factor modification per published guideline statements. CAD RADS 4A: Consider further functional testing or invasive coronary angiography with revascularization per published guideline statements. Consider symptom-guided anti-ischemic and preventive pharmacotherapy as well as risk factor modification per published guideline statements. CAD RADS 4B: Invasive coronary angiography recommended with revascularization per published guideline statements. Consider symptom-guided anti-ischemic and preventive pharmacotherapy as well as risk factor modification per published guideline statements. CAD RADS 5: Consider invasive angiography and/or viability assessment with revascularization per published guideline statements. Consider symptom-guided anti-ischemic and preventive pharmacotherapy as well as risk factor modification per published guideline statements. CRITICAL RESULT None COMMUNICATION Per this written report The coronary and cardiac findings of this CCTA were reviewed, reported, and signed by Lamont Rodriguez MD ([facility]) Conclusion Electronically signed by : Triny Rodriguez MD 07/26/2024 12:55:46
[2024-07-22 07:30] VITALS: PULSE 85; RESP 16; TEMP 36.4; O2SAT 98
[2024-07-22 07:31] VITALS: BMI 28.5
[2024-07-22] MEDS: IVABRADINE HCL 7.5MG TABLET PO (07:43)
[2024-07-22] MEDS: METOPROLOL TARTRATE 50MG TABLET PO (07:43)
[2024-07-22 07:52] LABS: Anion Gap 9.8 mEq/L (5-15); Blood Urea Nitrogen 17 mg/dl (7-17); Calcium 9.2 mg/dl (8.4-10.2); Carbon Dioxide 26 mmol/L (22.0-30.0); Chloride 107 mmol/L (98-107); Creatinine Clearance Estimated 121 mL/min (50-200); Estimated Glomerular Filt Rate 93 ml/min (>60); GFR (African American) 113 ML/MIN (>60); Glucose 95 mg/dl (74-100); Potassium 3.8 mmoL/L (3.5-5.1); Sodium 139 mmol/L (136-145)
[2024-07-22 08:48] VITALS: BP 139/86; PULSE 63; RESP 18; O2SAT 96
[2024-07-22] MEDS: NITROGLYCERIN 0.4MG SL TABLET SL (08:48)
[2024-07-22 08:51] VITALS: BP 121/73; PULSE 65; RESP 16; O2SAT 98
[2024-07-22 08:54] VITALS: BP 115/50; PULSE 67; RESP 16; O2SAT 99
[2024-07-22 08:59] VITALS: BP 118/51; PULSE 61; RESP 16; O2SAT 99
[2024-07-22] MEDS: METOPROLOL TARTRATE 5MG/5ML VIAL 5 MG IV (08:59)
[2024-07-22] MEDS: SODIUM CHLORIDE 0.9% 10ML SYR (RAD ONLY) 10 ML IV (09:03)
[2024-07-22] MEDS: 0.9 % SODIUM CHLORIDE 50 ML VIAL IV (09:03)
[2024-07-22] MEDS: IOPAMIDOL-370 (76%);100ML BOTTLE 85 ML IV (09:03)
[2024-07-22 09:04] VITALS: BP 118/82; PULSE 65; RESP 18; O2SAT 99
== END 2024-07-22 09:09 | disposition home or self-care (01) ==
PROVIDERS: PCP Family Medicine; Visit Provider Internal Medicine
DX: I20.9 Angina pectoris, unspecified (principal); R55 Syncope and collapse; R06.09 Other forms of dyspnea; Z82.49 Family history of ischemic heart disease and other diseases of the circulatory system
CPT/HCPCS: 75574; 80048; Q9967

== ENCOUNTER 2024-09-06 08:42 | Day surgery (SDC) | payer OTHER, SELFPAY ==
[2024-09-03 09:01] VITALS: BMI 29.4
[2024-09-06 09:50] VITALS: BP 111/64; PULSE 77; RESP 16; TEMP 36.3; O2SAT 99
[2024-09-06] MEDS: LACTATED RINGERS 1000ML 1,000 ML 50 ML IV (09:53)
--- NOTE | 2024-09-06 10:05 | EXP.ANES.CKL ---
[facility] Disclaimer: The information contained in this section may have been updated after the patient was seen, as this information can be updated by other users. 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 Strep throat Family history of coronary artery disease Typical angina Dyspnea on exertion Headache Interatrial cardiac shunt Abnormal uterine bleeding (AUB) Dyspnea Atypical chest pain Cardiomyopathy Abnormal echocardiogram Transformed migraine History of endocarditis History of intravenous drug abuse Sexual dysfunction in female Asthma PCOS (polycystic ovarian syndrome) Endometriosis Migraine Stomach ulcer Pelvic pain in female Menorrhagia with regular cycle Hepatitis C infection Unknown details Gastroenteritis Migraine Surgical History History of total vaginal hysterectomy (TVH) with bilateral salpingectomy History of endometrial ablation H/O right wrist surgery History of cholecystectomy H/O tubal ligation Family History Other Family history of cancer Family history of diabetes mellitus type II Family history of hypertension Family history of irritable bowel syndrome Social History Smoking Status: Never smoker alcohol intake: current substance use type: former substance user and heroin current occupational status: employed Travel in the last 8 weeks: None Have you lived/traveled outside [place] in past 30 days?: No Contact w/someone who lives/traveled outside [place] past 30 days?: No Exposure to someone with infectious disease in past 14 days?: No Do you have a fever (greater than 100.4 F or 38 C)?: No Have you tested positive for COVID-19: No Exposed to someone with COVID-19 in past 14 days?: No Do you have a sore throat?: Yes Do you have a cough?: No Do you have any weakness?: No Are you experiencing any nausea/vomitting?: No Do you have any diarrhea?: No Are you experiencing any unusual bleeding?: No Do you have any muscle aches/pain?: No Do you have any abdominal pain?: No Are you experiencing loss of taste or smell?: No [facility] Anesthesia Checklist Patient Identification Patient Identification: Arm Band and Verbal (Name & ) Structural Data Admitted From: Home Planned Operative Procedure/s: EGD/Colonoscopy Consent for Planned Operative Procedure(s) Verified: Yes Verified Documents: Surgical Consent NPO Status Verified Time NPO: 00:00 Chart Verification Results Verified: None Additional verifications Patient : No Anesthesia Reactions: No Hx Blood Transfusions: No Blood Transfusion Reaction: No Airway Assessment Mallampati Score:: Class I C-Spine Mobility Assessed: Yes TMJ Mobility Assessed: No Dentition: Good Dentition Neurological Assessment Level of Consciousness: Awake, Alert and Appropriate Hx Seizures: No Numbness or tingling in extremities: No Anesthesia Plan Anesthesia Risk discussed: Yes Anesthesia Plan: Verified ASA Class: I Anesthesia Type: MAC
--- NOTE | 2024-09-06 10:36 | P.HP_ITS ---
History of Present Illness *Admission Date: 09/06/24 *Reason for visit:: Nausea, vomiting, reflux, globus sensation, constipation, bloating *History of present illness: Ms. Mendiola is a 39-year-old female who is here for diagnostic EGD and colonoscopy. The patient has had nausea, vomiting, reflux and globus sensation. She does get bloating and abdominal discomfort. She has had some chronic constipation and generalized abdominal pain with dyspepsia. She had been diagnosed with gastric ulcers as a child. She has been to the emergency department. The examination is deemed medically necessary for diagnostic EGD and colonoscopy. The patient has been seen, interviewed and examined prior to the procedure by both myself and the anesthesia provider. [facility] Disclaimer: The information contained in this section may have been updated after the patient was seen, as this information can be updated by other users. 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 Strep throat Family history of coronary artery disease Typical angina Dyspnea on exertion Headache Interatrial cardiac shunt Abnormal uterine bleeding (AUB) Dyspnea Atypical chest pain Cardiomyopathy Abnormal echocardiogram Transformed migraine History of endocarditis History of intravenous drug abuse Sexual dysfunction in female Asthma PCOS (polycystic ovarian syndrome) Endometriosis Migraine Stomach ulcer Pelvic pain in female Menorrhagia with regular cycle Hepatitis C infection Unknown details Gastroenteritis Migraine Surgical History History of total vaginal hysterectomy (TVH) with bilateral salpingectomy History of endometrial ablation H/O right wrist surgery History of cholecystectomy H/O tubal ligation Family History Other Family history of cancer Family history of diabetes mellitus type II Family history of hypertension Family history of irritable bowel syndrome Social History Smoking Status: Never smoker alcohol intake: current substance use type: former substance user and heroin current occupational status: employed Travel in the last 8 weeks: None Have you lived/traveled outside [place] in past 30 days?: No Contact w/someone who lives/traveled outside [place] past 30 days?: No Exposure to someone with infectious disease in past 14 days?: No Do you have a fever (greater than 100.4 F or 38 C)?: No Have you tested positive for COVID-19: No Exposed to someone with COVID-19 in past 14 days?: No Do you have a sore throat?: Yes Do you have a cough?: No Do you have any weakness?: No Are you experiencing any nausea/vomitting?: No Do you have any diarrhea?: No Are you experiencing any unusual bleeding?: No Do you have any muscle aches/pain?: No Do you have any abdominal pain?: No Are you experiencing loss of taste or smell?: No Other 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 Have you received the Flu Vaccine for this season: No Have you received the Pneumonia Vaccine: No Review of Systems Review of Systems Review of systems (narrative): Negative *Cardiovascular Comments: Negative *Gastrointestinal Comments: Negative *Genitourinary Comments: Negative *Musculoskeletal Comments: Negative *Neurologic Comments: Negative Meds Home Medications and Allergies Home Medications ?Medication ?Instructions ?Recorded ?Confirmed ?Type cholecalciferol (vitamin D3) 50 50 mcg PO DAILY #90 caps 02/10/24 09/03/24 Rx mcg (2,000 unit) capsule montelukast 10 mg tablet 10 mg PO DAILY #90 tabs 02/10/24 09/03/24 Rx (Singulair) epinephrine 0.3 mg/0.3 mL 0.3 ml SQ Q5-15M PRN anaphylaxis 04/30/24 09/03/24 Rx injection, auto-injector (EpiPen #2 ea 2-Aldo) albuterol sulfate 90 mcg/actuation 1 inh inhalation Q6H PRN sob #1 ea 06/18/24 09/03/24 Rx breath activated powder inhaler plecanatide 3 mg tablet (Trulance) 3 mg PO DAILY #90 tabs 07/12/24 09/03/24 Rx pantoprazole 40 mg tablet,delayed 40 mg PO DAILY #30 tabs 08/09/24 09/03/24 Rx release (Protonix) azelastine 137 mcg (0.1 %) nasal 2 spray intranasal BID #30 mL 08/10/24 09/03/24 Rx spray levocetirizine 5 mg tablet (Xyzal) 5 mg PO DAILY #90 tabs 08/10/24 09/03/24 Rx promethazine 25 mg/mL injection 25 mg IM Q6H PRN nausea and 08/31/24 09/03/24 Rx solution vomiting #1 mL amoxicillin 500 mg tablet 500 mg PO BID #20 tabs 09/01/24 09/03/24 Rx New Prescriptions to Start Prescriptions: Allergies Allergy/AdvReac Type Severity Reaction Status Date / Time aspirin Allergy Unknown Other Verified 09/06/24 09:48 propoxyphene (From Allergy Unknown Other Verified 09/06/24 09:48 [id number] 100) Exam Data for Last 24 hours Vital signs and Labs for Last 24 Hours: Temp Pulse Resp BP Pulse Ox O2 Del Method 97.4 F L 77 16 111/64 99 Room Air 09/06/24 09:50 09/06/24 09:50 09/06/24 09:50 09/06/24 09:50 09/06/24 09:50 09/06/24 09:50 I & O for Last 24 hours: Intake & Output 09/03/24 09/04/24 09/05/24 09/06/24 23:59 23:59 23:59 23:59 Weight 161 lb *Routine HEENT Exam Head: Present normocephalic Eye: Present EOMI and PERRL ENT: Present mucous membranes moist *Routine Neck Exam Neck: Present supple *Routine Respiratory Exam Respiratory: Present CTA bilaterally *Routine Cardiovascular Exam Cardiovascular: Present RRR *Routine Abdominal Exam Abdominal: Present soft and normoactive bowel sounds; Absent tenderness *Routine Rectal Exam Rectal:: deferred *Routine Genitalia Exam Genitalia:: deferred *Routine Extremities Exam Extremities: Absent cyanosis, clubbing or edema *Routine Skin Exam Skin: Present warm; Absent rash *Routine Neurological Exam Neurological: Present alert and oriented X3 Assessment and Plan *Assessment and plan (1) Nausea & vomiting: Status: Acute Category: Medical Code(s): R11.2 - Nausea with vomiting, unspecified (2) Epigastric pain: Status: Acute Category: Medical Code(s): R10.13 - Epigastric pain (3) Acid reflux: Status: Acute Category: Medical Code(s): K21.9 - Gastro-esophageal reflux disease without esophagitis (4) Generalized abdominal pain: Status: Acute Category: Medical Code(s): R10.84 - Generalized abdominal pain (5) Bloating: Status: Acute Category: Medical Code(s): R14.0 - Abdominal distension (gaseous) (6) Chronic constipation: Status: Acute Category: Medical Code(s): K59.09 - Other constipation (7) Globus sensation: Status: Acute Category: Medical Code(s): R09.A2 - Foreign body sensation, throat (8) Dysphagia: Status: Acute Qualifiers: Dysphagia type: unspecified Qualified Code(s): R13.10 - Dysphagia, unspecified Category: Medical Code(s): R13.10 - Dysphagia, unspecified (9) Bright red blood per rectum: Status: Acute Category: Medical Code(s): K62.5 - Hemorrhage of anus and rectum Plan A/P: 1. Nausea/vomiting with epigastric pain, reflux and dyspepsia for upper endoscopy and chronic constipation with bloating and bright red rectal bleeding for colonoscopy is the preprocedural diagnosis. The patient will be anesthetized/sedated using MAC sedation. The patient has been seen and examined. Cardiac and lung assessment prior to the examination is stable. Proceed with planned diagnostic EGD and colonoscopy.
[2024-09-06 10:45] VITALS: O2SAT 100
--- NOTE | 2024-09-06 10:50 | HMH.PROCNOTE ---
[facility] Procedure Note Date: 09/06/24 Time: 10:58 Procedure Note:: Upper Endoscopy Procedure Report: Esophagogastroduodenoscopy with cold biopsies and TTS balloon dilation Endoscopost: Huan Ann II, MD Referring Physician: FABIOLA Puri Date of Procedure: September 06, 2024 Equipment: Olympus GIF 190 standard upper endoscope Sedation: MAC sedation Indications: Mrs. Mendiola is a 39-year-old female who is here for diagnostic EGD and colonoscopy. The patient reports dyspepsia and reflux. She has had epigastric and generalized abdominal pain, nausea and intermittent vomiting. She does report bloating and some early satiety. She has had some belching, dysphagia and globus sensation. She also has had chronic constipation. Her symptoms were better when she was on Trulance but this was not covered by her insurance. She did go to the emergency department with chest pain and her cardiac evaluation with cardiac EKG, isoenzymes and CTA were normal in May. She had been on omeprazole daily. The patient also had some bright red rectal bleeding. She reports no weight loss or family history of colon cancer. The patient does note mucus with her bowel movements intermittently. The patient did try samples of low-dose Linzess for 10 days without results. In the past, she has tried stool softeners, enemas, MiraLAX and fiber. The patient did have a history of chronic hepatitis C with genotype 2B and was successfully treated with Epclusa. Procedure: Prior to the procedure, a history and physical exam was performed, and patient's medications and allergies were reviewed. The risks, benefits and alternatives of the sedation and procedure were discussed with the patient. All questions were answered and informed consent was obtained. The patient was brought to the procedure room. Patient identification and proposed procedure were verified by the physician and the nurse. The patient was placed in a left lateral decubitus position and the scope was passed under direct vision. Throughout the procedure, the patient's blood pressure, pulse, and oxygen saturations were monitored continuously. The upper GI endoscopy was accomplished without difficulty. The patient tolerated the procedure well. Findings: The scope was passed directly into the upper esophagus and advanced to the third portion of the duodenum. The post bulbar duodenum and duodenal bulb were normal with normal mucosa and conniventes. The scope was withdrawn through a normal duodenal bulb and pylorus into the stomach. There was some bile reflux with mild linear reactive gastropathy of the antrum. The body and fundus of the stomach were normal. Upon retroflexion there was a small 2 cm hiatal hernia. Cold biopsies were taken from the antrum. The scope was then withdrawn into the esophagus. There were 2 short tongues of salmon-colored mucosa that were biopsied to rule out intestinal metaplasia. There was no evidence of reflux esophagitis. There were tertiary contractions and evidence of mild to moderate esophageal dysmotility. There were very faint grade 0?1 esophageal varices. The entire esophagus was dilated to 60 Wolof/20 mm with a TTS hydrostatic balloon. There was some resistance at the cricopharyngeus/cricopharyngeal spasm. There was no inlet patch. The remainder of the esophageal mucosa was normal. Impression: 1. Nonerosive GERD with moderate esophageal dysmotility, cricopharyngeal spasm and small 2 cm hiatal hernia status post dilation to 20 mm 2. Very faint grade 0?1 esophageal varices 3. Mild antral reactive gastropathy Plan: I will follow-up the biopsies. I do feel that most of her symptoms of dyspepsia and reflux are related to and driven by lower intestinal gas pressure gradients/high gas pressure buildup resulting in backflow of bile and peptic fluid from the duodenum into the stomach (duodenal reflux). This gas production (carbon dioxide, hydrogen, methane, etc.) from the lower intestinal tract is the byproduct of colonic bacterial fermentation. This colonic fermentation occurs when there is more carbohydrate (dietary starches, sugars and high residue plant fiber) substrate that does not get digested (in the middle or small intestine) or occurs when there is colonic fecal buildup and colonic bacterial overgrowth. This indeed leads to bloating and the gas pressure buildup with gas pressure gradients that do drive backflow and dyspepsia. We will discuss treatment options today and I will likely have her initiate higher dose of Linzess especially since Trulance worked very well. I would also recommend [id number] herbal Iberogast twice daily. I will obtain hepatic fibrotic markers. I will proceed with diagnostic colonoscopy.
--- NOTE | 2024-09-06 11:02 | HMH.PROCNOTE ---
[facility] Procedure Note Date: 09/06/24 Time: 11:18 Procedure Note:: Colonoscopy Procedure Report: Colonoscopy with monopolar ablation/coagulation of internal hemorrhoids Endoscopist: Huan Ann II, MD Referring physician: FABIOLA Puri Date of Procedure: September 06, 2024 Equipment: Olympus 190 variable stiffness pediatric colonoscope Sedation: MAC sedation Indication: Mrs. Mendiola is a 39-year-old female who is here for diagnostic EGD and colonoscopy. The patient reports dyspepsia and reflux. She has had epigastric and generalized abdominal pain, nausea and intermittent vomiting. She does report bloating and some early satiety. She has had some belching, dysphagia and globus sensation. She also has had chronic constipation. Her symptoms were better when she was on Trulance but this was not covered by her insurance. She did go to the emergency department with chest pain and her cardiac evaluation with cardiac EKG, isoenzymes and CTA were normal in May. She had been on omeprazole daily. The patient also had some bright red rectal bleeding. She reports no weight loss or family history of colon cancer. The patient does note mucus with her bowel movements intermittently. The patient did try samples of low-dose Linzess for 10 days without results. In the past, she has tried stool softeners, enemas, MiraLAX and fiber. The patient did have a history of chronic hepatitis C with genotype 2B and was successfully treated with Epclusa. Procedure: Prior to the procedure, a history and physical exam was performed, and patient's medications and allergies were reviewed. The risks, benefits and alternatives of the sedation and procedure were discussed with the patient. All questions were answered and informed consent was obtained. The patient was brought to the procedure room. Patient identification and proposed procedure were verified by the physician and the nurse. The patient was placed in a left lateral decubitus position and the scope was passed under direct vision. Throughout the procedure, the patient's blood pressure, pulse, and oxygen saturations were monitored continuously. The colonoscopy was accomplished without difficulty. The patient tolerated the procedure well. Findings: On digital rectal examination there was normal rectal tone. There were no external hemorrhoids. The colonoscope was introduced through the anal canal to the rectum and advanced to the cecum. The ileocecal valve and appendiceal orifice were identified. The scope was advanced a short distance into the ileum which appeared grossly normal. The scope was then withdrawn into the colon. The cecum, ascending, transverse, descending, sigmoid and rectum were grossly normal. There were no mucosal abnormalities identified. Upon retroflexion within the rectum there were grade 2 internal hemorrhoids. 3 columns of hemorrhoids were ablated/coagulated using monopolar ablation to destruction. The preparation was excellent throughout with [place] Preparation Score of 9. The cecal time was 10 minutes. Impression: 1. Normal colonoscopy with intubation of the terminal ileum 2. Grade 2 internal hemorrhoids status post monopolar ablation/coagulation Plan: I will recommend initiation of Linzess 290 mcg by mouth every morning. The patient will not require surveillance colonoscopy again for 10 years by ACS guidelines.
[2024-09-06 11:21] VITALS: BP 95/59; PULSE 74; RESP 20; O2SAT 99
[2024-09-06 11:31] VITALS: BP 105/64; PULSE 72; RESP 20; O2SAT 99
[2024-09-06 11:41] VITALS: BP 103/62; PULSE 73; RESP 20; O2SAT 99
[2024-09-06 11:51] VITALS: BP 100/60; PULSE 74; RESP 20; O2SAT 99
--- NOTE | 2024-09-06 12:34 | SUR.PHASEII ---
Multiple attempts made by lab staff with no success. Pt given outpatient lab order for tomorrow morning and pt given strict instructions to hydrate prior to lab to help with lab draw success. Pt verbalized understanding,.
== END 2024-09-06 12:20 | disposition home or self-care (01) ==
PROVIDERS: Visit Provider Internal Medicine Gastroenterology
PROC: 0DJ08ZZ Inspection of Upper Intestinal Tract, Via Natural or Artificial Opening Endoscopic (ICD-10-PCS; CPT 45378; principal; 2024-09-06 10:30)
DX: R11.2 Nausea with vomiting, unspecified (principal); R10.13 Epigastric pain; K21.9 Gastro-esophageal reflux disease without esophagitis; R10.84 Generalized abdominal pain; R14.0 Abdominal distension (gaseous); R09.A2 Foreign body sensation, throat; K62.5 Hemorrhage of anus and rectum; K59.04 Chronic idiopathic constipation; K44.9 Diaphragmatic hernia without obstruction or gangrene; K22.4 Dyskinesia of esophagus; J39.2 Other diseases of pharynx; I85.00 Esophageal varices without bleeding; K31.9 Disease of stomach and duodenum, unspecified; K64.1 Second degree hemorrhoids
CPT/HCPCS: 43239; 43249; 45388; C1726; J7120

== ENCOUNTER 2024-09-07 10:05 | Outpatient (CLI) | payer OTHER, SELFPAY ==
--- OUTSIDE RECORDS SUMMARY | 2024-09-08 13:22 | XMS_ITS | Data Portability ---
Author Organization [facility] Address [address] [place] [id number] Assessment No assessment recorded. Plan of Treatment Reminders Order Date Submit Date Provider Last Modified By Organization Details Last Modified Time Details Appointments None recorded. Lab None recorded. Referral None recorded. Procedures None recorded. Surgeries None recorded. Imaging None recorded. Medication Orders oxybutynin chloride ER 10 mg tablet,exte nded release 24 hr 2023 024 [email or web address] [facility], [address] [place] [address] S, KRISTINE Brunson, [id number], 4 14:23:41 Patient TargetsNo targets recorded. Patient InstructionsNo instructions recorded. Reason for Referral None Reported. Problems Name Problem SNOMED Code Status Onset Date Resolution Date Notes Provider Name and Address Organization Details Recorded Time Disease of liver 532165150 Active 024 Antionekaylee Fernandes bob K[facility]STINE - [facility] - [place] & [place] 4 10:31:19 Seasonal allergy 570402128 Active 024 Antionekaylee Fernandes bob, K[facility]STINE - [facility] - [place] & [place] 4 10:31:28 Gastric ulcer 613948583 Active 024 Radha Dom bob K[facility]STINE - [facility] & [place] 4 10:31:44 Asthma 622540286 Active 024 Radha Dom bob KRISTINE - [facility] - [place] & [place] 4 10:31:55 Irregular heart beat 493500137 Active 024 TeKRISTINE Resendez [facility] & [place] 4 10:32:03 Problem Notes None recorded. Procedures Surgical History Date Name Laterality Status Provider Name and Address Organization Details Recorded Time 07/25/19 24 Cystoscopy-Femal e completed Jackson Francis Jr, MD [address] [place] [address], [address], [place], [address], K[facility]STINE [facility] & [place] 08/09/2023 14:24:49 Tubal Ligation completed Radha CARMONA [facility] & [place] 07/25/2023 10:33:29 procedure on wrist completed cheng CARMONA [facility] & [place] 07/25/2023 10:33:37 extraction of wisdom tooth completed Radha CARMONA [facility] & [place] 07/25/2023 10:33:52 [facility] [place] 07/25/2023 10:34:07 [facility] & [place] 07/25/2023 10:34:13 Imaging Results None recorded. Procedure Notes None recorded. Medical Equipment None Reported. Allergies Allergen ID Allergen Name Allergen Category Reaction Reaction Severity Criticality Documentation Date Start Date Code Code System Note Provider Name and Address Organization Details Recorded Time 501439 aspirin medicatio n Not available Not available Not available 07/25/2023 1191 RxNorm KRISTINE Vázquez [facility] & [place] 4 10:30:32 Medications Name Sig Start Date Stop Date Status Note LastModified by Organization Details LastModified Time oxybutynin chloride ER 10 mg tablet,exten ded release 24 hr Take 1 tablet every day by oral route. 024 active Not Available Not Available Not Avai lable omeprazole active Not Available Not Av ailable Not Available Xyzal active Not Available Not Availa ble Not Available Vitals Date Recorded Body height Body mass index (BMI) Body weight Body temperature Provider Name and Address Organization Details Last Updated DateTime 07/25/2023 157.48 cm 28.5 kg/m2 28488.41 g 97.9 [degF] Radha Kong [facility] & [place] 07/25/2023 10:30:24 Social History Question Answer Notes LastModified by Organizat ion Details LastModified Time Tobacco Smoking Status Never Smoker KRISTINE Vázquez - [facility] & [place] 07/25/2023 10:32:41 What Is Your Level Of Alcohol Consumption? None Information not available 07/25/2023 Sex: Unknown Functional Status None recorded. Mental Status None recorded. Family History Relationship Description Onset Age of this Age Resolved Age Notes LastModified by Organization Details LastModified Time Mother Car crash dec [email or web address] Not availab le 07/25/2023 10:32:20 Father Family history unknown [email or web address] Not available 2023 10:32:33 Sister Family history unknown [email or web address] Not available 2023 10:32:33 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 No medical history recorded. Gynecological HistoryNo gynecological history recorded. Obstetrics History GPAL:G 0 P 0 0 0 0 Past Encounters Encounter ID Performer Location Encounter Start Date Encounter Closed Date Diagnosis/Indication Diagnosis SNOMED-CT Code Diagnosis ICD10 Code Diagnosis Note [id number] Jackson Francis Jr, MD [facility] [address] [id number] 07/25/2023 10:02:56 07/25/2023 11:48:23 Overactive urinary bladder 991315632 N32.81 patient with symptoms of bladder spasm and increased frequency and urgency. Will place on oxybutynin Lesion of urinary bladder 958885639 N32.9 mild papillary change noted medial to the right ureteral orifice. We discussed bladder biopsy to make sure this is not a cancerous lesion. She wishes to proceed. Health Concerns Section Related Observation LastModified by Organization Detai ls LastModified Time None Recorded Concern Status LastModified by Organization Details LastModified Time None Recorded Advance Directives Directive None Recorded Payers Encounter Date Sequence Insurance Name Policy Number Policy Gifford Covered Member ID Gifford Member ID Guarantor Name 07/25/2023 1 [employer] - DOS PRIOR TO 2024 - [employer] () Pebbles Mendiola [id number] Adan Mendiola Notes Date Note Type Note Provider Name and Address Organization Details Recorded Time 07/25/2023 text/html Patient is a 38-year-old white female referred for recent abnormal cystoscopy which was performed at the time of hysterectomy. Patient states she has had some bleeding and bladder spasms before and after her hysterectomy which was performed in June 2023. Jackson Francis Jr, MD [address] [place] [address], [address], [place], [address], [place] - [facility] - [place] & [place] 08/09/2023 14:26:50 OBGyn Episode No OBEpisode recorded.
== END 2024-09-07 23:59 | disposition home or self-care (01) ==
LOC: LAB.DROPOF 09-08 13:20
PROVIDERS: PCP Student in an Organized Health Care Education/Training Program; Visit Provider Student in an Organized Health Care Education/Training Program
DX: R50.9 Fever, unspecified (principal)
CPT/HCPCS: 87086